=== PATIENT | female | born 1950 | race African-American/Black ===

== ENCOUNTER 2024-08-07 07:58 | Outpatient (AMB) | payer OTHER, SELFPAY ==
--- OUTSIDE RECORDS SUMMARY | 2024-08-07 08:01 | XMS_ITS | Patient Health Record ---
Author Organization [facility] Address [address] [facility] [place] [address] Care Team Providers Care Mixer And Scaler Name Role Phone Alondra MARES, [facility] Primary Care Provider Romina Min Unavailable [phone] Allergies Allergen (clinical drug ingredient) Drug/Non Drug Allergy documented on EMR Reaction Allergy Type Onset Date Status meperidine Demerol Unknown Drug Allergy Active Novocain Unknown Drug Allergy Active aspirin Aspirin Unknown Drug Allergy Active Latex Latex Unknown Allergy Active lidocaine Lidocaine Unknown Drug Allergy Active Penicillin Unknown Drug Allergy Active Reason For Referral No Information Medications Medication SIG (Take, Route, Frequency, Duration) Notes Start Date End Date Status Extra Depth Orthopedic Shoes (1 Pair) with Customized Heat Molded Multidensity Innersoles (3 Pair) as directed Dx: IDDM/Polyneuropathy (E10.42), Hammertoe Foot Deformity (M20.41,M20.42), Preulcerative Skin Lesion(s) (L85.1) Active Ciclopirox 0.77 % 1 application to aff ected area Externally Twice a day to effected nails for 30 days 05/14/2023 Active Lantus 100 UNIT/ML as directed Subcutaneous Active NovoLOG Active Zantac Active Immunizations Vaccine Route Administration Date Status Comme nts Influenza Unknown 12/07/2022 Administered Influenza Unknown 05/14/2023 Refused Social History Tobacco Use: Social History Observation Description Date Details (start date - stop date) Former Smoker NA - NA Tobacco Use/Smoking Question Answer Notes Are you a: former smoker Additional Findings: Tobacco Non-User Current no n-smoker Alcohol Screen Question Answer Notes Did you have a drink containing alcohol in the p ast year? No Points 0 Interpretation Negative Tobacco use other than smoking: Question Answer Notes Are you an other tobacco user? 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) Active confirmed Vital Signs Height 5ft 3in in 10/18/2023 Weight 170 lbs 10/18/2023 BMI 30.11 kg/m2 10/18/2023 Encounters [facility]counter [facility] Date [facility] [address] [facility]/18/[facility]23 Romina Connell Tinea unguium B35.1 and Type 1 DM with polyneuropathy E10.42 [facility] [address] [place] [address] 01/17/2024 Romina Connell Assessments Encounter Date Diagnosis (ICD Code) Assessment Notes Treatment Notes Treatment Clinical Notes Section Notes 10/18/2023 Tinea unguium (ICD-10 - B35.1) 10/18/2023 Type 1 DM with polyneuropathy (ICD-10 - E10.42) Plan Of Treatment No Information Insurance Providers Payer Name Payer Address Payer Phone Subscriber Number Group Number Insured Name Patient Relationship to Insured Coverage Start Date Coverage End Date [facility] [employer] Claims [address] [place] [address] [phone] [id number] Lisseth Chaudhari Self - patient is the insured Medical (General) History Medical History History ICD Code Angina Anxiety Arthritis asthma Back,Hip,and Knee pain Broken bones Mumps Diabetic Depression Headaches/Migraines Hiatal hernia nerve disorder Sinus conditions Stomach ulcer Surgical History Surgery Date(Month/Year) back surgery leg surgery,right Hospitalization History Reason Date(Month/Year)
--- NOTE | 2024-08-07 08:06 | MHC.PC.OV ---
Vital Signs 08/07/24 08:07 Height 5 ft 1.22 in Weight 165 lb 6 oz BMI 31.0 BP 120/70 Blood Pressure Location Rt brachial Position Sitting Pulse 90 Pulse Source Pulse Oximeter Temp 96.9 F Temp Source Temporal Artery Scan Pulse Oximetry (%) 97 Oxygen Delivery Method Room Air Intake Visit Reasons: establish care- copd/htn Intake Note: Patient is a new patient here to establish care for DM, Chronic pain, Dislocated disc in back and neck, Fibromilgia, Anxiety, Depression, Hearing loss, Bad eye vision. Transferring care from Dr Mio David ([facility]). Medical records have been requested and have not received. Semiconductor Processing Technician Required: No Concrete Journeyman: Not Required per policy Accompanied by: Self / Same As Patient Allergies adhesive tape Allergy (Intermediate, Verified 08/07/24 08:22) Hives amitriptyline Allergy (Intermediate, Verified 08/07/24 08:22) Hives codeine Allergy (Intermediate, Verified 08/07/24 08:22) Hives nortriptyline Allergy (Intermediate, Verified 08/07/24 08:22) Hives Medication List - Last Reconciled 08/07/24 by Annalisa Jackson PA-C [Adult pull ups As directed] aspirin 81 mg PO DAILY atenolol 150 mg PO DAILY blood-glucose sensor (Panda GraphicsStyle Lilian 3 Plus Sensor device) As directed blood-glucose,chief lock tender operator,cont (FreeStyle Lilian 3 [place]) As directed khcoefvnhei-cgsgondrt-rrbgwgxh 200-62.5-25 mcg (Trelegy Ellipta) 1 inh inhalation DAILY glucagon 3 mg/actuation (Baqsimi) mg intranasal hydrochlorothiazide 12.5 mg PO DAILY insulin glargine (Lantus Solostar U-100 Insulin) 32 units subcut QPM insulin lispro-aabc (Lyumjev KwikPen U-100 Insulin) 1 sliding scale dose subcut USEASDIRECTD levothyroxine 112 mcg PO DAILY lisinopril 10 mg PO DAILY nitroglycerin 0.4 mg sublingual Q5M PRN pravastatin 80 mg PO BEDTIME sertraline 100 mg PO DAILY tirzepatide (Mounjaro) 10 mg subcut QWEEK tizanidine 2 mg PO Q8H PRN Tobacco use date assessed: 08/07/24 Fall risk assessment: No Falls in past year Last assessed Fall Risk: 08/07/24 Dental Screening Dental Screen Date: 08/07/24 Did you have a dental visit in the last 12 months?: Yes Did you have a dental problem in the last 6 months where you did not have access to dental care?: No Was dental information given to patient?: Patient has dentist HPI establish care- copd/htn HPI Details 74-year-old female coming to the office for the 1st time. Patient was previously being seen in [facility] we do have access to some of her notes. She was seen by [facility] Cardiology 07/28/2024 advised to continue on atenolol, aspirin and nitroglycerin patch. Pravastatin was increased to 80 mg advised to continue on Mounjaro and ordered for Lexiscan nuclear stress test. She was last seen by her PCP 07/02/2024. She was seen by pulmonology 05/29/2024 advised to continue on CPAP and Trelegy. She is also seen by [facility] endocrinology 06/06/2024 A1c goal of less than 8% advised to continue on current medication and reviewed medication at the time. - Diabetes Mellitus: The patient has a history of diabetes with an A1c of 8.5, indicating poor glycemic control. She is currently on insulin therapy but is unsure of the specific medications. She reports difficulty in managing her diet and blood sugar levels, particularly after returning from a trip to [facility]. - Hypertension: The patient is on antihypertensive medication, including lisinopril, but specific details of her blood pressure control were not discussed. - Chronic Obstructive Pulmonary Disease (COPD): The patient has COPD and uses inhalers as needed. She reports experiencing dyspnea and is under the care of a embedded nurse, Dr. Polo. - Fibromyalgia: The patient reports significant pain associated with fibromyalgia, which exacerbates her depression and anxiety. She has been managing this condition for several years. Per last [facility] notes she is seeing a hand touch up painter the patient reports not seeing one. - Depression and Anxiety: The patient has a history of depression and anxiety, which are worsened by her chronic pain and social isolation. She expresses a desire to see a psychiatrist for medication management and counseling. - Hypothyroidism: The patient is on levothyroxine for hypothyroidism, and her thyroid function is monitored regularly. - Neuropathy: The patient experiences neuropathy associated with her diabetes, primarily affecting her lower extremities. - Back Pain: The patient has a history of back pain due to dislocated discs, with previous lumbar fusion surgeries that have not alleviated her symptoms. She reports ongoing lower back pain and is seeking pain management rather than surgical intervention. - Social History: The patient lives alone and has limited family support, with her family residing in [facility]. She engages in arts and crafts as a hobby and has a supportive relationship with her neighbors. PFSH Medical History (Updated 08/07/24 @ 15:54 by Annalisa Jackson PA-C) TIA (transient ischemic attack) Nephrolithiasis Surgical History (Updated 08/07/24 @ 12:58 by Annalisa Jackson PA-C) Hx laparoscopic cholecystectomy H/O tubal ligation H/O partial thyroidectomy H/O Spinal surgery Social History Housing: Apartment Alcohol intake: current Alcohol intake frequency: holidays/special occasions only Patient Tobacco Use Status: Former Tobacco user e-Cigarette/Vaping Use: Never Used Second Hand Smoke Exposure: Yes service: No Current occupational status: retired and disabled Cognitive needs: Yes (, scooter, walker) Hearing needs: No Vision needs: Yes (Glasses) Questionnaire PHQ-9 Over the last 2 weeks, how often have you been bothered by any of the following problems? 1. Little interest or pleasure in doing things: several days 2. Feeling down, depressed, or hopeless: several days 3. Trouble falling or staying asleep, or sleeping too much: several days 4. Feeling tired or having little energy: more than half the days 5. Poor appetite or overeating: several days 6. Feeling bad about yourself - or that you are a failure or have let yourself or your family down: several days 7. Trouble concentrating on things, such as reading the newspaper or watching television: several days 8. Moving or speaking so slowly that other people could have noticed. Or the opposite - being so fidgety or restless that you have been moving around a lot more than usual: several days 9. Thoughts that you would be better off or of hurting yourself in some way: not at all Total score: 9 Depression Screening Interpretation: Positive Depression Screening Follow-up: Existing condition and In treatment Depression Screening Done: Yes 16206 - PHQ-9 Billing: Yes Source: Developed by Drs. Umang Silva, Elizabeth Mar, Ronak Lindsey and colleagues, with an educational malia from [employer]. Thrive Questionnaire Date Thrive assessed: 08/07/24 I am a: Patient What is your living situation today?: I have a steady place to live Within the past 12 months, did the food you bought not last and you didn't have the money to get more?: Never true Within the past 12 months, did you worry whether your food would run out before you got money to buy more?: Never true Do you have trouble paying for medicines?: No Do you have trouble getting transportation to medical appointments?: No Do you have trouble paying your heating and electricity bill?: No Do you have trouble taking care of your child, family member or friend?: Yes Do you have trouble with day-to-day activities such as bathing, preparing meals, shopping, managing finances, etc.?: Yes Are you currently unemployed and looking for a job?: Yes Are you interested in more education?: No Please select the resources that you would like help with: None Currently or been in a relationship where the following occur: No concerns reported THRIVE Score: 0 AUDIT C Alcohol Use Questionnaire (AUDIT-C) 1. How often do you have a drink containing alcohol?: Monthly or less 2. How many drinks containing alcohol do you have on a typical day when you are drinking?: 1 or 2 3. How often do you have six or more drinks on one occasion?: Less than monthly Total Score: 2 ALVERTO-7 AMB Questionnaire ALVERTO-7 Date ALVERTO - 7 assessed: 08/07/24 Feeling nervous, anxious, or on edge: 2 = More than half the days Not being able to stop or control worryin = More than half the days Worrying too much about different things: 2 = More than half the days Trouble relaxin = Not at all Being so restless that it is hard to sit still: 2 = More than half the days Becoming easily annoyed or irritable: 2 = More than half the days Feeling afraid as if something awful might happen: 2 = More than half the days Total ALVERTO-7 score (0-4 normal; 5-9 mild; 10-14 moderate; 15-21 severe): 12 Source: Developed by Drs. Umang Silva, Elizabeth Mar, Ronak Lindsey and colleagues, with an educational malia from [employer]. ALVERTO-7 Assessment Billing ALVERTO-7 Assessment Tool: ALVERTO-7 Assessment 71157 Review of Systems Const Denies body aches, Denies chills, Denies fever(s), Denies headache(s) and Denies poor appetite Eyes Reports no additional complaints ENT Denies dizziness and Denies headache(s) Card Denies chest pain and Denies dyspnea Resp Denies cough and Denies dyspnea GI Denies abdominal pain, Denies nausea and Denies vomiting Reports no additional complaints Musc Reports no additional complaints and Denies abnormal gait Skin/Breast Reports system reviewed and no additional complaints, except as documented Neuro Denies abnormal gait, Denies dizziness and Denies headache(s) Psych Reports no additional complaints Physical exam (Primary Care) Vital Signs: Last Vital Signs Temp 96.9 F 08/07/24 08:07 Pulse 90 08/07/24 08:07 BP 120/70 08/07/24 08:07 Pulse Ox 97 08/07/24 08:07 Oxygen Delivery Method Room Air 08/07/24 08:07 BMI result Body Mass Index 31.0 Tobacco/Smoking Status: Tobacco use Status Tobacco use date assessed 08/07/24 08/07/24 08:11 Patient Tobacco Use Status Former Tobacco user 08/07/24 08:25 e-Cigarette/Vaping Use Never Used 08/07/24 08:24 PHQ-9: PHQ-9 Score PHQ-9: Total score 9 08/07/24 14:57 Depression Screening Interpretation: Positive Depression Screening Follow-up: Existing condition and In treatment Thrive Assessment: Date of Thrive Assessment Date Thrive assessed 08/07/24 08/07/24 08:11 Currently or been in a relationship where the following occur: No concerns reported Const General: cooperative, healthy appearing, comfortable and no acute distress Orientation/consciousness: patient oriented x3 HENMT Head: Yes normocephalic Ears: hearing grossly normal bilaterally General nose exam: Normal external nose present Eyes General: appearance normal, both eyes and all related structures Conjunctivae: conjunctivae normal Neck Neck: Yes full ROM and Yes no lymphadenopathy Resp Effort & Inspection: normal respiratory effort Auscultation: clear to auscultation bilaterally, no crackles, no rales, no rhonchi and no wheezes Cardio Rate: regular rate Rhythm: regular rhythm Skin General skin exam: no rashes or lesions noted Neuro General: patient oriented x3 Gait exam (Neuro): Normal gait present Extrem General: Yes normal to inspection, Yes full ROM and No edema Psych Affect: normal affect Attitude: cooperative Insight: Good insight present (Psych) Judgement: Good judgement present (Psych) Results AMB Hemoglobin A1c AMB Hemoglobin A1c 8.5 % Last Edit by SONIA Hi on 08/07/24 08:41 Results Reviewed Results Reviewed: Laboratory Last Values Hgb A1c (Clinic) 8.5 % (4.0-6.0) H 08/07/24 08:28 Coding Level of Care Code New Pt Level 4 (05996) Diagnoses Insulin dependent type 2 diabetes mellitus E11.9; Z79.4 Hypertension I10 COPD (chronic obstructive pulmonary disease) J44.9 Anxiety F41.9 Depression F32.A Fibromyalgia M79.7 Hypothyroidism E03.9 Memory impairment R41.3 Neuropathy G62.9 Back pain M54.9 Hypercholesterolemia E78.00 CAD (coronary artery disease) I25.10 Obesity E66.9 Obstructive sleep apnea G47.33 Urinary incontinence R32 Additional Codes ALVERTO-7 Assessment Billing - ALVERTO-7 Assessment Tool: ALVERTO-7 Assessment 04805 ([id number]) PHQ-9 - 16093 - PHQ-9 Billing: Yes ([id number]) Assessment & Plan Assessment & Plan (1) Insulin dependent type 2 diabetes mellitus: Code(s): E11.9 - Type 2 diabetes mellitus without complications; Z79.4 - long term care social worker (current) use of insulin Category: Medical Plan: Decrease the amount of carbohydrates such as pasta, bread, rice, and potatoes and limit the amount of sweets. Although fruits are generally healthy they should be eaten in moderation as they are still high in sugar. Hemoglobin A1c goal of 8%. Continue to follow with [facility] endocrinology. (2) Hypertension: Code(s): I10 - Essential (primary) hypertension Category: Medical Plan: Continue on current blood pressure medication. Avoid salt intake and encourage healthy diet and regular exercise. Reviewed Cardiology notes advised patient to continue on current medication regimen (3) COPD (chronic obstructive pulmonary disease): Code(s): J44.9 - Chronic obstructive pulmonary disease, unspecified Category: Medical Plan: She is unsure about her inhalers but feels her breathing is well managed at this time. Continue to follow with pulmonology. (4) Anxiety: Code(s): F41.9 - Anxiety disorder, unspecified Category: Medical Plan: Anxiety and depression well managed on sertraline at this time. She is looking for a counseling referral as she does do with chronic pain which impacts her mental health. Referral was placed today. (5) Depression: Code(s): F32.A - Depression, unspecified Category: Medical Plan: See above (6) Fibromyalgia: Code(s): M79.7 - Fibromyalgia Category: Medical Plan: Patient reporting fibromyalgia and chronic pain she states she does not see a hand touch up painter. Her last PCP notes did show that she is seeing [facility] pain management however notes were unobtainable today. Referral was placed to [place] pain management today. (7) Hypothyroidism: Code(s): E03.9 - Hypothyroidism, unspecified Category: Medical Plan: Continue on levothyroxine 112 mcg and ordered for repeat blood work (8) Memory impairment: Code(s): R41.3 - Other amnesia Category: Medical Plan: Patient having memory impairment which was noted by her last PCP as well as her facility assistant. Referral was placed to neurology today for further evaluation. (9) Neuropathy: Code(s): G62.9 - Polyneuropathy, unspecified Category: Medical Plan: Patient has a history of neuropathy does not appear to be on any medication to treat this. Referral was placed to neurology for memory impairment and plan to address neuropathy at that time. 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 (11) Hypercholesterolemia: Code(s): E78.00 - Pure hypercholesterolemia, unspecified Category: Medical Plan: Avoid foods that are high in cholesterol such as red meat, fried foods, eggs and baked goods. Triglyceride goal of less than 150 and LDL goal of less than 70. Continue on pravastatin 80 (12) CAD (coronary artery disease): Comment: PREMA to circumflex and has 50% lad 2012 Code(s): I25.10 - Atherosclerotic heart disease of [place] coronary artery without angina pectoris Category: Medical Plan: Patient is currently following with calender worker helper last seen 07/02/2024 and plan to follow up in their clinic in 3 months. Advised good control of blood sugars, A1c currently on controlled at this time 8.7% and is following with endocrinology for this. Advised good control of cholesterol which is 91 on last labs slightly above goal however recent change in pravastatin may not have been in full affect. Blood pressure is well managed at this time. Continue on low-dose aspirin and nitroglycerin as needed (13) Obesity: Code(s): E66.9 - Obesity, unspecified Category: Medical Plan: Healthy diet and regular exercise is encouraged. (14) Obstructive sleep apnea: Code(s): G47.33 - Obstructive sleep apnea (adult) (pediatric) Category: Medical Plan: Uses CPAP faithfully at least 4 hours a night and benefits from this therapy. Continue to follow up with pulmonology. (15) Urinary incontinence: Code(s): R32 - Unspecified urinary incontinence Category: Medical Plan: Patient has reported urinary incontinence which is a chronic issue and uses adult pull-ups for this. Prescription was sent to pharmacy. Plan Community navigation was contacted today and patient did have an evaluation with nurse navigator Twna prior to leaving the office. She will work with community navigation on additional resources and coordinate with [facility] as well. The patient will be referred to a psychiatrist for management of depression and anxiety, with a focus on medication management and counseling. A referral to a hand touch up painter will be made to address her chronic back pain, particularly due to dislocated discs and fibromyalgia. 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 Blood work has been ordered, including a cholesterol panel and thyroid function tests, to monitor her overall health status. The patient is advised to provide a complete list of her current medications to ensure proper management of her diabetes and other chronic conditions. She is encouraged to maintain regular follow-ups with her primary care provider to monitor her progress and adjust treatment plans as necessary. This note was constructed using voice recognition software. While every effort has been made to ensure accuracy and computer repairer, still areas may have been included sometimes these areas may affect the content or meeting of the given symptoms. Total time spent caring for the patient today was 30 minutes. This includes time spent before the visit reviewing the chart, time spent during the visit, and time spent after the visit and documentation. Patient was informed and verbally consented to the use of an ambient scribe for clinic note documentation during this visit. Orders: Orders AMB Hemoglobin A1c Today E11.9 - Type 2 diabetes mellitus without complications Vitamin D 25-OH Total Today E11.9 - Type 2 diabetes mellitus without complications, Z00.00 - Encounter for general adult medical examination without abnormal findings, Z79.4 - long term care social worker (current) use of insulin Free T4 (Free Thyroxine) Today E11.9 - Type 2 diabetes mellitus without complications, Z00.00 - Encounter for general adult medical examination without abnormal findings, Z79.4 - long term care social worker (current) use of insulin Vitamin B12 and Folate Today E11.9 - Type 2 diabetes mellitus without complications, Z13.21 - Encounter for screening for nutritional disorder, Z79.4 - [facility] (current) use of insulin TSH reflex Free T4 Today E11.9 - Type 2 diabetes mellitus without complications, Z00.00 - Encounter for general adult medical examination without abnormal findings, Z79.4 - long term care social worker (current) use of insulin Referrals Neurology Referral G62.9 - Polyneuropathy, unspecified, R41.3 - Other amnesia Pain Management Referral G62.9 - Polyneuropathy, unspecified, M54.9 - Dorsalgia, unspecified, M79.7 - Fibromyalgia Psychiatry Referral F32.A - Depression, unspecified, F41.9 - Anxiety disorder, unspecified Nurse Navigator Referral E11.9 - Type 2 diabetes mellitus without complications, Z79.4 - long term care social worker (current) use of insulin Medications: New blood-glucose sensor (FreeStyle Lilian 3 Plus Sensor device) As directed 1 ea 0RF E11.9 - Type 2 diabetes mellitus without complications, Z79.4 - [facility] (current) use of insulin blood-glucose,chief lock tender operator,cont (FreeStyle Lilian 3 [place]) As directed 1 ea 0RF E11.9 - Type 2 diabetes mellitus without complications, Z79.4 - long term care social worker (current) use of insulin [Adult pull ups] As directed 1 ea 0RF R32 - Unspecified urinary incontinence
[2024-08-07 08:07] VITALS: BP 120/70; PULSE 90; TEMP 36.1; O2SAT 97; BMI 31.0
== END 2024-08-07 09:27 | disposition home or self-care (01) ==
LOC: HO.HMCH 07:58
PROVIDERS: PCP Internal Medicine
DX: E11.42 Type 2 diabetes mellitus with diabetic polyneuropathy (principal); Z79.4 Long term (current) use of insulin; J44.9 Chronic obstructive pulmonary disease, unspecified; I10 Essential (primary) hypertension; F41.9 Anxiety disorder, unspecified; F32.A Depression, unspecified; M79.7 Fibromyalgia; E03.9 Hypothyroidism, unspecified; R41.3 Other amnesia; G62.9 Polyneuropathy, unspecified; M54.9 Dorsalgia, unspecified; E78.00 Pure hypercholesterolemia, unspecified

== ENCOUNTER → 2024-08-07 07:58 | Outpatient (BNVA) | payer OTHER, SELFPAY | PROVIDERS: PCP Internal Medicine | DX: E11.9 Type 2 diabetes mellitus without complications (principal); G89.29 Other chronic pain; M79.7 Fibromyalgia; F41.9 Anxiety disorder, unspecified; F32.A Depression, unspecified; I10 Essential (primary) hypertension; J44.9 Chronic obstructive pulmonary disease, unspecified; F32.9 Major depressive disorder, single episode, unspecified; E03.9 Hypothyroidism, unspecified; R41.3 Other amnesia; G62.9 Polyneuropathy, unspecified; M54.9 Dorsalgia, unspecified; E78.00 Pure hypercholesterolemia, unspecified; I25.10 Atherosclerotic heart disease of native coronary artery without angina pectoris; E66.9 Obesity, unspecified; G47.33 Obstructive sleep apnea (adult) (pediatric); R32 Unspecified urinary incontinence; Z68.31 Body mass index [BMI] 31.0-31.9, adult | CPT/HCPCS: 83036; 96127; 99202 ==

== ENCOUNTER 2024-08-14 10:19 | Outpatient (AMB) | payer OTHER, SELFPAY ==
[2024-08-14 10:20] VITALS: BP 152/70; PULSE 94; RESP 16; O2SAT 98; BMI 33.4
--- NOTE | 2024-08-14 10:20 | A.OFFVIS_ITS ---
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 She has a history of fibromyalgia, which causes widespread pain and flare-ups, currently exacerbated by issues in her lower back. The chronic lower back pain is primarily located at the L4-L5 region, radiating down the right leg to the foot, causing significant discomfort and limited mobility. The pain has persisted for years, with a history of spinal fusion surgery followed by hardware removal. The patient reports that steroid injections previously used for pain management elevated her blood sugar levels, complicating her diabetes management. She has tried various medications, including gabapentin, which was ineffective and caused adverse effects such as brain fog. Patient ambulates with use of a cane, has a scooter for long distances. Denies red flag symptoms including loss of bowel, bladder or saddle anesthesia. Her diabetes mellitus requires careful management, especially considering her reluctance to use certain pain management devices due to infection risks. Most recent A1c was 8.5%. - Onset: Chronic, persisting for years - Quality: Radiating pain from lower back to right leg and foot - Location: Primarily at L4-L5, radiating down the right side - Exacerbating factors: Movement, sitting, standing, walking - Relieving factors: None effectively identified - Affect: Pain is causing significant distress and impacting psychological wellbeing - Analgesia: Previous use of gabapentin was ineffective; steroid injections increased blood sugar - Adverse Effects: Gabapentin caused brain fog; steroid injections affected diabetes management - Activities of Daily Living: Pain limits mobility and daily activities - Aberrant Drug Related Behaviors: None reported [facility] Medical History (Updated 08/14/24 @ 12:50 by Linda Sanchez, VARITYPIST, LAYOUT ARTIST) TIA (transient ischemic attack) Nephrolithiasis Surgical History (Updated 08/07/24 @ 12:58 by Annalisa Jackson PA-C) Hx laparoscopic cholecystectomy H/O tubal ligation H/O partial thyroidectomy H/O Spinal surgery Social History Housing: Apartment Alcohol intake: current Alcohol intake frequency: holidays/special occasions only Patient Tobacco Use Status: Former Tobacco user e-Cigarette/Vaping Use: Never Used Second Hand Smoke Exposure: Yes service: No Current occupational status: retired and disabled Cognitive needs: Yes (, scooter, walker) Hearing needs: No Vision needs: Yes (Glasses) Review of Systems Const Details: - Musculoskeletal: Reports chronic lower back pain radiating to the right leg - Neurological: Reports radicular pain down the right leg - Endocrine: Reports elevated blood sugar levels with steroid use Physical Exam Vital Signs: Last Vital Signs Pulse 94 08/14/24 10:20 Resp 16 08/14/24 10:20 BP 152/70 H 08/14/24 10:20 Pulse Ox 98 08/14/24 10:20 Oxygen Delivery Method Room Air 08/14/24 10:20 BMI result Body Mass Index 33.4 General: awake, alert, oriented. Answers questions appropriately. Fully engaged in examination. Skin: warm, dry, intact HEENT: Normocephalic. Hearing intact. Cardiac: External chest normal in appearance. Respiratory: No cough, audible wheezing or stridor. Abdomen: without gross distension. MS: No obvious swelling or deformities. Able to transition from sit to stand unassisted. Ambulates with bilaterally normal heel strike and toe off Tenderness over midline lumbar vertebrae and lumbar paraspinal muscles SLR positive on the right Bilateral lower extremity strength 4/5 Valsalva negative Nontender over bilateral PSIS Neurological: Oriented to person, place, time and situation. Thought process intact. No gait abnormalities appreciated. Psychiatric: Appropriate mood and affect. Good judgment and insight. 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 X-rays will also be ordered to evaluate the alignment and integrity of the spinal column, particularly during movement. Patient has exhausted greater than 6 weeks conservative therapy including ice, heat, lidocaine patches, NSAIDs, Tylenol. Unable to tolerate physical therapy, she states it exacerbates the pain. The patient will be scheduled for an open MRI to accommodate her discomfort with enclosed spaces. The x-rays can be done at a convenient location for the patient, with no appointment necessary. Patient was informed and verbally consented to the use of an ambient scribe for clinic note documentation during this visit. Orders: Orders XR lumbar spine 6V w bending Today M79.7 - Fibromyalgia, M96.1 - Postlaminectomy syndrome, not elsewhere classified MR lumbar spine wo con Today M54.16 - Radiculopathy, lumbar region, M96.1 - Postlaminectomy syndrome, not elsewhere classified Patient Instructions: - Schedule an open MRI at [facility]. - Complete x-rays at your convenience. - Follow up after the MRI to discuss results and next steps. Coding Level of Care Code New Pt Level 4 (17779) Complex EM visit Add On G2211 Diagnoses Fibromyalgia M79.7 Failed back surgical syndrome M96.1 Lumbar radiculopathy M54.16
--- OUTSIDE RECORDS SUMMARY | 2024-08-14 11:41 | XMS_ITS | Patient Health Record ---
Author Organization [facility] Address [address] [address] Care Team Providers Care Wage Conciliator Name Role Phone Alondra MARES, [facility] Primary Care Provider Romina Min Unavailable [phone] Allergies Allergen (clinical drug ingredient) Drug/Non Drug [...] Problem Acquired hammer toe of right foot ([id number] 9105) Other hammer toe(s) (acquired), right foot (M20.41) Active confirmed Problem Acquired hammer toe of left foot ([id number] 9103) Other hammer toe(s) (acquired), left foot (M20.42) Active confirmed Problem [id number] 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 [address] [place] [address] 01/17/2024 Romina Connell Assessments Encounter Date Diagnosis (ICD Code) Assessment Notes Treatment Notes Treatment Clinical Notes Section Notes 10/18/2023 Tinea unguium (ICD-10 - B35.1) 10/18/2023 Type 1 DM with polyneuropathy (ICD-10 - E10.42) Plan Of Treatment No Information Insurance Providers Payer Name Payer Address Payer Phone Subscriber Number Group Number Insured Name Patient Relationship to Insured Coverage Start Date Coverage End Date [facility] SCO Claims [address] [place] [address] [phone] [id number] Lisseth Chaudhari Self - patient is the insured Medical (General) History Medical History History ICD Code Angina Anxiety Arthritis asthma Back,Hip,and Knee pain Broken bones Mumps Diabetic Depression Headaches/Migraines Hiatal hernia nerve disorder Sinus conditions Stomach ulcer Surgical History Surgery Date(Month/Year) back surgery leg surgery,right Hospitalization History Reason Date(Month/Year)
== END 2024-08-14 11:16 | disposition home or self-care (01) ==
LOC: HO.PMC 10:20
PROVIDERS: Visit Provider Registered Nurse Emergency
DX: M79.7 Fibromyalgia (principal); M96.1 Postlaminectomy syndrome, not elsewhere classified; M54.16 Radiculopathy, lumbar region
CPT/HCPCS: 99204; G2211

== ENCOUNTER → 2024-08-14 10:19 | Outpatient (BNVA) | payer OTHER, SELFPAY | PROVIDERS: Visit Provider Registered Nurse Emergency | DX: M79.7 Fibromyalgia (principal); M96.1 Postlaminectomy syndrome, not elsewhere classified; M54.16 Radiculopathy, lumbar region | CPT/HCPCS: 99202 ==

== ENCOUNTER 2024-08-20 09:07 | Outpatient (REF) | payer OTHER, SELFPAY ==
--- NOTE | ~2024-08-20 | XR_ITS ---
CLINICAL HISTORY: M96.1 - Postlaminectomy syndrome, not elsewhere classified Lumbar spine three views plus flexion-extension Comparison: None provided Findings: No acute fracture or dislocation. Diffuse severe degenerative change. Multilevel slight anterolisthesis, likely chronic. No change in alignment with flexion or extension. Very limited range of motion observed. No radiopaque foreign bodies. Impression: No acute processes This document has been electronically signed by: Lopez Looney MD on 08/20/2024 19:49:06
[2024-08-20 11:38] LABS: Free T4 (Free Thyroxine) 1.02 ng/dL (0.71-1.85); TSH reflex Free T4 2.84 uIU/mL (0.32-4.0); Vitamin D 25-OH Total 38.7 ng/mL (>30)
[2024-08-20 11:47] LABS: Folate 12.4 ng/mL (> or = 4.0); Vitamin B12 720 pg/mL (200-900)
--- OUTSIDE RECORDS SUMMARY | 2024-10-14 20:00 | XMS_ITS | Clinical Summary ---
Author Organization Unknown Care Team Providers Care Ethyl Blender Name Role Phone ANNALISA MARES, MAY Unavailable Unavailable SWEETIE EASTON, PETERSON Marquez Unavailabl e Payers Payer Name Policy Type Policy Number Effective Date Expira tion Date [facility] [id number] MEDICAID [facility] [id number] MEDICARE - [facility] [id number] Problems Condition Name Condition Details Condition Category Status Onset Date Resolution Date Last Treatment Date Treating Clinician Comments TYPE 2 DIABETES MELLITUS WITHOUT COMPLICATION S Active 08-14 00:00: 00 Allergies, Adverse Reactions, Alerts Allergy Name Allergy Type Status Severity Reaction(s) Onset Date Inactive Date Treating Clinician Comments CODEINE SULFATES Propensity to adverse reactions Active 08-17 09:25: 01 AMITRIPTYLIN E Propensity to adverse reactions Active 08-18 07:09: 54 Vital Signs Vital Name Observation Time Observation Value Commen ts Temperature 2024-08-17 09:42:00.000 98.6 [degF] BMI (%) 2024-08-17 09:42:00.000 26 kg/m2 Height 2024-08-17 09:42:00.000 63 [in_us] Pulse 2024-08-17 09:42:00.000 60 /min O2 Saturation (%) 2024-08-17 09:42:00.000 99 % Respirations 2024-08-17 09:42:00.000 18 /min Weight (lbs) 2024-08-17 09:42:00.000 150 [lb_av] Systolic Blood Pressure 2024-08-17 09:42:00.000 140 mm [Hg] Diastolic Blood Pressure 2024-08-17 09:42:00.000 70 mm [Hg] Plan of Treatment Planned Activity Planned Date Details Comments Future Scheduled Test SKILLED NU RSE TO EVALUATE PATIENT, IDENTIFY PRIMARY AND CO-MORBID CONDITIONS CODED PER CODING GUIDELINES, AND DEVELOP PATIENT SPECIFIC PLAN OF CARE THAT INCLUDES PATIENT GOAL FOR HOME HEALTH. [code = SKILLED NURSE TO EVALUATE PATIENT, IDENTIFY PRIMARY AND CO-MORBID CONDITIONS CODED PER CODING GUIDELINES, AND DEVELOP PATIENT SPECIFIC PLAN OF CARE THAT INCLUDES PATIENT GOAL FOR HOME HEALTH.] Future Scheduled Test SKILLED NU RSE TO PERFORM HOME SAFETY AND FALL ASSESSMENT AND PROVIDE INSTRUCTION TO IMPLEMENT HOME SAFETY AND FALL PREVENTION STRATEGIES. [code = SKILLED NURSE TO PERFORM HOME SAFETY AND FALL ASSESSMENT AND PROVIDE INSTRUCTION TO IMPLEMENT HOME SAFETY AND FALL PREVENTION STRATEGIES.] Future Scheduled Test SKILLED NU RSE FOR OBSERVATION AND ASSESSMENT OF PATIENTS PAIN LEVEL AND EFFECTIVENESS OF PAIN MANAGEMENT REGIMEN. SKILLED NURSE TO INSTRUCT PATIENT/CAREGIVER REGARDING PHARMACOLOGIC AND NON-PHARMACOLOGIC PAIN CONTROL MEASURES. SKILLED NURSE TO REPORT TO PHYSICIAN IF PAIN IS UNCONTROLLED WITH CURRENT PAIN MANAGEMENT REGIMEN. [code = SKILLED NURSE FOR OBSERVATION AND ASSESSMENT OF PATIENTS PAIN LEVEL AND EFFECTIVENESS OF PAIN MANAGEMENT REGIMEN. SKILLED NURSE TO INSTRUCT PATIENT/CAREGIVER REGARDING PHARMACOLOGIC AND NON-PHARMACOLOGIC PAIN CONTROL MEASURES. SKILLED NURSE TO REPORT TO PHYSICIAN IF PAIN IS UNCONTROLLED WITH CURRENT PAIN MANAGEMENT REGIMEN.] Future Scheduled Test SKILLED NU RSE TO ASSESS PATIENT'S SKIN INTEGRITY AND INSTRUCT PATIENT/CAREGIVER ON MEASURES TO PREVENT PRESSURE ULCERS. [code = SKILLED NURSE TO ASSESS PATIENT'S SKIN INTEGRITY AND INSTRUCT PATIENT/CAREGIVER ON MEASURES TO PREVENT PRESSURE ULCERS.] Future Scheduled Test PATIENT REYES S A RISK OF HOSPITALIZATION AND ED USE. SKILLED NURSE TO ESTABLISH SUPPORT MEASURES TO MINIMIZE RISK OF HOSPITALIZATION AND ED USE, AND INSTRUCT PATIENT/CAREGIVER ON METHODS TO REDUCE AVOIDABLE HOSPITALIZATION AND ED USE. [code = PATIENT HAS A RISK OF HOSPITALIZATION AND ED USE. SKILLED NURSE TO ESTABLISH SUPPORT MEASURES TO MINIMIZE RISK OF HOSPITALIZATION AND ED USE, AND INSTRUCT PATIENT/CAREGIVER ON METHODS TO REDUCE AVOIDABLE HOSPITALIZATION AND ED USE.] Future Scheduled Test SKILLED NU RSE TO PROVIDE INSTRUCTION TO PATIENT/CAREGIVER RELATED TO DISCHARGE PLANNING. [code = SKILLED NURSE TO PROVIDE INSTRUCTION TO PATIENT/CAREGIVER RELATED TO DISCHARGE PLANNING.] Future Scheduled Test SKILLED NU RSE TO O/A OF PATIENTS MENTAL/BEHAVIORAL STATUS, ASSESS VITAL SIGNS 3WK8 ALLOW 2 PRNS FOR MEDICATION MANAGEMENT. [code = SKILLED NURSE TO O/A OF PATIENTS MENTAL/BEHAVIORAL STATUS, ASSESS VITAL SIGNS 3WK8 ALLOW 2 PRNS FOR MEDICATION MANAGEMENT.] Future Scheduled Test SKILLED NU RSE WILL MAINTAIN SITUATIONAL AWARENESS FOR SAFETY AND WILL NOTIFY CLINICAL CHILD AND ADOLESCENT PSYCHOLOGIST AND PHYSICIAN/PROVIDER WITH ANY CHANGE IN CONDITION. [code = SKILLED NURSE WILL MAINTAIN SITUATIONAL AWARENESS FOR SAFETY AND WILL NOTIFY CLINICAL CHILD AND ADOLESCENT PSYCHOLOGIST AND PHYSICIAN/PROVIDER WITH ANY CHANGE IN CONDITION.] Future Scheduled Test SKILLED NU RSE TO REVIEW PATIENT MEDICATIONS. INSTRUCT PATIENT/CAREGIVER ON MONITORING OF EFFECTIVENESS, ADVERSE DRUG REACTIONS, SIDE EFFECTS OF ALL MEDICATIONS (PRESCRIPTION/-OTC), AND HOW AND WHEN TO REPORT PROBLEMS. [code = SKILLED NURSE TO REVIEW PATIENT MEDICATIONS. INSTRUCT PATIENT/CAREGIVER ON MONITORING OF EFFECTIVENESS, ADVERSE DRUG REACTIONS, SIDE EFFECTS OF ALL MEDICATIONS (PRESCRIPTION/-OTC), AND HOW AND WHEN TO REPORT PROBLEMS.] Future Scheduled Test SKILLED NU RSE FOR O/A AND SKILLED TEACHING RELATED TO MANAGEMENT OF DEPRESSIVE SYMPTOMS AND/OR DEPRESSION. SN TO REPORT SIGNIFICANT CHANGE IN DEPRESSIVE SYMPTOMS TO CLINICAL PROVIDER FOR EARLY INTERVENTION. [code = SKILLED NURSE FOR O/A AND SKILLED TEACHING RELATED TO MANAGEMENT OF DEPRESSIVE SYMPTOMS AND/OR DEPRESSION. SN TO REPORT SIGNIFICANT CHANGE IN DEPRESSIVE SYMPTOMS TO CLINICAL PROVIDER FOR EARLY INTERVENTION.] Future Scheduled Test SKILLED NU RSE FOR O/A AND SKILLED TEACHING OF COPING SKILLS TO MANAGE ANXIETY AND MAINTAIN SAFETY. [code = SKILLED NURSE FOR O/A AND SKILLED TEACHING OF COPING SKILLS TO MANAGE ANXIETY AND MAINTAIN SAFETY.] Future Scheduled Test SKILLED NU RSE TO ASSESS PATIENTS PSYCHOSOCIAL STATUS TO IDENTIFY POTENTIAL ISSUES THAT MAY COMPLICATE THE PROVISION OF THE PLAN OF CARE INCLUDING THE PATIENTS ABILITY TO ACCESS COMMUNITY RESOURCES AND PSYCHOSOCIAL SUPPORT SERVICES. [code = SKILLED NURSE TO ASSESS PATIENTS PSYCHOSOCIAL STATUS TO IDENTIFY POTENTIAL ISSUES THAT MAY COMPLICATE THE PROVISION OF THE PLAN OF CARE INCLUDING THE PATIENTS ABILITY TO ACCESS COMMUNITY RESOURCES AND PSYCHOSOCIAL SUPPORT SERVICES.] Future Scheduled Test SKILLED NU RSE FOR O/A OF RESPIRATORY SYSTEM TO IDENTIFY CHANGES ASSOCIATED WITH EXACERBATION AND TO PROVIDE SKILLED TEACHING ON MANAGEMENT OF COPD(SPECIFY) RESPIRATORY DISEASE PROCESS. [code = SKILLED NURSE FOR O/A OF RESPIRATORY SYSTEM TO IDENTIFY CHANGES ASSOCIATED WITH EXACERBATION AND TO PROVIDE SKILLED TEACHING ON MANAGEMENT OF COPD(SPECIFY) RESPIRATORY DISEASE PROCESS.] Future Scheduled Test SKILLED NU RSE TO PROVIDE TEACHING ON SIGNS AND SYMPTOMS AND MANAGEMENT OF HYPERTENSION. [code = SKILLED NURSE TO PROVIDE TEACHING ON SIGNS AND SYMPTOMS AND MANAGEMENT OF HYPERTENSION.] Future Scheduled Test SKILLED NU RSE TO PROVIDE TEACHING/REINFORCEMENT RELATED TO URINARY INCONTINENCE. [code = SKILLED NURSE TO PROVIDE TEACHING/REINFORCEMENT RELATED TO URINARY INCONTINENCE.] Future Scheduled Test SKILLED NU RSE FOR O/A AND TEACHING OF DIABETIC MANAGEMENT INCLUDING BLOOD SUGAR MONITORING/USE OF GLUCOMETER, DIABETIC DIET, LOWER EXTREMITY SKIN INSPECTION, PROPER SKIN/FOOT CARE, AND SIGNS AND SYMPTOMS HYPO/HYPERGLYCEMIA TO REPORT. [code = SKILLED NURSE FOR O/A AND TEACHING OF DIABETIC MANAGEMENT INCLUDING BLOOD SUGAR MONITORING/USE OF GLUCOMETER, DIABETIC DIET, LOWER EXTREMITY SKIN INSPECTION, PROPER SKIN/FOOT CARE, AND SIGNS AND SYMPTOMS HYPO/HYPERGLYCEMIA TO REPORT.] Future Scheduled Test SKILLED NU RSE FOR O/A AND SKILLED TEACHING RELATED TO SIGNS AND SYMPTOMS AND MANAGEMENT OF FIBROMYALGIA (SPECIFY MUSCULOSKELETAL DISEASE) [code = SKILLED NURSE FOR O/A AND SKILLED TEACHING RELATED TO SIGNS AND SYMPTOMS AND MANAGEMENT OF FIBROMYALGIA (SPECIFY MUSCULOSKELETAL DISEASE)] Goal Patient Goal - P ATIENT VERBALIZED GOAL TO IMPROVED MEDICATION MANAGEMENT AND PAIN IN LOWER BACK. Goal Provider Goal - A PLAN OF CARE WILL BE ESTABLISHED THAT MEETS PATIENT'S [facility] NEEDS AND INCLUDES PATIENT GOAL FOR HOME HEALTH. Goal Provider Goal - PATIENT/CAREGIVER WILL VERBALIZE/DEMONSTRATE EFFECTIVE HOME SAFETY AND FALL PREVENTION STRATEGIES THROUGHOUT CERTIFICATION PERIOD. Goal Provider Goal - PATIENT/CAREGIVER WILL DEMONSTRATE UNDERSTANDING OF PHARMACOLOGIC AND NONPHARMACOLOGIC PAIN CONTROL MEASURES AND PATIENT WILL HAVE IMPROVEMENT IN PAIN INTERFERING WITH ACTIVITY EVIDENCED BY PAIN AT A LEVEL THAT IS ACCEPTABLE TO THE PATIENT AND PAIN LEVEL WITHIN ESTABLISHED PARAMETERS BY END OF CERTIFICATION PERIOD. Goal Provider Goal - PATIENT/CAREGIVER WILL VERBALIZE UNDERSTANDING OF PRESSURE ULCER PREVENTION BY END OF THE EPISODE. Goal Provider Goal - PATIENT WILL HAVE SUPPORT MEASURES ESTABLISHED TO PREVENT HOSPITALIZATION AND ED USE AND PATIENT/CAREGIVER WILL VERBALIZE/DEMONSTRATE METHODS TO REDUCE AVOIDABLE HOSPITALIZATION AND ED USE BY END OF EPISODE. Goal Provider Goal - PATIENT/CAREGIVER WILL VERBALIZE UNDERSTANDING OF DISCHARGE PLANNING INSTRUCTIONS BY DATE OF DISCHARGE. Goal Provider Goal - ALTERED MENTAL/BEHAVIORAL STATUS WILL BE IDENTIFIED PROMPTLY AND INTERVENTION INITIATED QUICKLY TO MINIMIZE ASSOCIATED RISKS THROUGHOUT CERTIFICATION PERIOD. Goal Provider Goal - PATIENT WILL REMAIN SAFE IN THE COMMUNITY AND WILL BE FREE OF DANGER TO SELF AND OTHERS THROUGHOUT THE CERTIFICATION PERIOD. Goal Provider Goal - PATIENT/CAREGIVER WILL VERBALIZE UNDERSTANDING OF EDUCATION PROVIDED ON MEDICATIONS BY THE END OF THE CERTIFICATION PERIOD. Goal Provider Goal - PATIENT WILL REMAIN SAFE WITHOUT DECOMPENSATION IN DEPRESSIVE CONDITION, WHILE MAINTAINING OPTIMAL LEVEL OF MENTAL HEALTH AND WELL BEING THROUGHOUT CERTIFICATION PERIOD. Goal Provider Goal - PATIENT WILL BE ABLE TO PERFORM DAILY FUNCTIONS AND HAVE OPTIMAL IMPROVEMENT IN LEVEL OF ANXIETY THROUGHOUT CERTIFICATION PERIOD. Goal Provider Goal - PSYCHOSOCIAL NEEDS WILL BE IDENTIFIED AND PLAN IMPLEMENTED TO MINIMIZE RISK THROUGHOUT CERTIFICATION PERIOD. Goal Provider Goal - PATIENT/CAREGIVER WILL VERBALIZE/DEMONSTRATE MANAGEMENT OF (SPECIFY) RESPIRATORY DISEASE PROCESS. CHANGES IN RESPIRATORY STATUS WILL BE IDENTIFIED AND REPORTED TO PHYSICIAN FOR PROMPT INTERVENTION THROUGHOUT THE CERTIFICATION PERIOD. Goal Provider Goal - PATIENT/CAREGIVER WILL VERBALIZE SIGNS AND SYMPTOMS OF HYPERTENSION AND WILL BE ABLE TO DEMONSTRATE ABILITY TO MANAGE EXACERBATION BY END OF THE EPISODE. Goal Provider Goal - PATIENT / CAREGIVER WILL VERBALIZE UNDERSTANDING OF EFFECTS OF URINARY INCONTINENCE BY THE END OF THE CERTIFICATION PERIOD. Goal Provider Goal - PATIENT/CAREGIVER WILL VERBALIZE/DEMONSTRATE KNOWLEDGE OF DIABETIC MANAGEMENT. CHANGES IN DIABETIC STATUS WILL BE IDENTIFIED AND REPORTED TO PHYSICIAN FOR PROMPT INTERVENTION THROUGHOUT THE CERTIFICATION PERIOD. Goal Provider Goal - PATIENT/CAREGIVER WILL VERBALIZE UNDERSTANDING OF (SPECIFY) MUSCULOSKELETAL DISEASE INCLUDING SIGNS AND SYMPTOMS, MANAGEMENT, AND PRESCRIBED TREATMENT REGIMEN BY END OF EPISODE. Progress Notes Progress Notes <paragraph>[Visit Date: 2024 by KENROY REYNA RN]:</paragraph><paragraph>NO PETS ALLERGIES LATEX NORTRYPTALINE CODEINE SHREYAS MENDEZ IS A74 YEAR OLD FEMALE LIVING IN [place]. SHE PRESENTS TODAY 08/17/2024 WITH [facility] FOR START OF CARE FOR [facility] SERVICES. PMH; T2DM, FIBROMYALGIA, OSTEOARTHRITIS, NEUROPATHY, ANXIETY AND DEPRESSION, CERVICAL AND. UMBARD COMPRESSED DISCS, HYPOTHYROIDISM. PATIENT AOX3 FORGETFUL AND OCCASINALLY CONFUSED. WEARS DEPENDS, ABLE TO ADMINISTER INSULIN, AND SELF MANAGES MEDICATIONS. APPETITE FAIR, AMBULATES WITH WALKER GAIT UNSTEADY, SERVERE PAIN, CERVICAL AND LOWER BACK, 5/10. NO S/S HYPO/HYPERGLYCEMIA. BIMS 15. PCP INFORMED OF START OF CARE PATIENT TO RECEIVE [facility] VISITS 3WK8 FOR CV ASSESSMENT AND MEDICATION MANAGEMENT. NEXT PCP FOLLOW-UP APPOINTMENT TO BE SCHEDULED. BOILER ENGINEER TO BE SCHEDULED. PATIENT REMAINS HOMEBOUND DUE TO TAXING EFFORT TO LEAVE HOME SAFELY WITHOUT ASSISTANCE AND WEAKNESS.</paragraph> Encounters Start Date/Time End Date/Time Encounter Type Admission Type Attending Clinicians Care Facility Care Department Encounter ID Discharge Date Discharge Status Discharge Condition Discharge Reason Percent Goals Met 2024-08-17 00:00:00 2024-10-15 00:00:00 Outpatient NEW ADMISSION [facility] [id number]
== END 2024-08-20 09:08 | disposition home or self-care (01) ==
LOC: HO.HMGCX 09:07
DX: Z00.00 Encounter for general adult medical examination without abnormal findings (principal); M96.1 Postlaminectomy syndrome, not elsewhere classified; M79.7 Fibromyalgia; E11.9 Type 2 diabetes mellitus without complications; Z79.4 Long term (current) use of insulin; Z13.21 Encounter for screening for nutritional disorder
CPT/HCPCS: 36415; 72114; 82306; 82607; 82746; 84439; 84443

== ENCOUNTER → 2024-08-20 09:26 | Outpatient (BNV) | payer OTHER, SELFPAY | PROVIDERS: Visit Provider Radiology Diagnostic Radiology | DX: M43.16 Spondylolisthesis, lumbar region (principal) | CPT/HCPCS: 72114 ==

== ENCOUNTER 2024-09-09 12:36 | Outpatient (AMB) | payer OTHER, SELFPAY ==
--- NOTE | 2024-09-09 12:45 | A.OFFPC_ITS ---
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 Accompanied by: Self / Same As Patient Allergies adhesive tape Allergy (Intermediate, Verified 09/09/24 14:01) Hives amitriptyline Allergy (Intermediate, Verified 09/09/24 14:01) Hives codeine Allergy (Intermediate, Verified 09/09/24 14:01) Hives nortriptyline Allergy (Intermediate, Verified 09/09/24 14:01) Hives Medication List - Last Reconciled 09/09/24 by Annalisa Jackson PA-C [Adult pull ups As directed] aspirin 81 mg PO DAILY atenolol 150 mg PO DAILY blood-glucose sensor (OM LatamStyle Lilian 3 Plus Sensor device) As directed blood-glucose,processing spec,cont (FreeStyle Lilian 3 [place]) As directed lkptletipzy-llaljkaxn-yranhwqi 200-62.5-25 mcg (Trelegy Ellipta) 1 inh inhalation DAILY glucagon 3 mg/actuation (Baqsimi) mg intranasal hydrochlorothiazide 12.5 mg PO DAILY insulin glargine (Lantus Solostar U-100 Insulin) 32 units subcut QPM insulin lispro-aabc (Lyumjev KwikPen U-100 Insulin) 1 sliding scale dose subcut USEASDIRECTD levothyroxine 112 mcg PO DAILY lisinopril 10 mg PO DAILY nitroglycerin 0.4 mg sublingual Q5M PRN pravastatin 80 mg PO BEDTIME sertraline 100 mg PO DAILY sertraline 50 mg PO DAILY tirzepatide (Mounjaro) 10 mg subcut QWEEK tizanidine 2 mg PO Q8H PRN Tobacco use date assessed: 09/09/24 Fall risk assessment: No Falls in past year Last assessed Fall Risk: 09/09/24 Dental Screening Dental Screen Date: 09/09/24 HPI f/u chronic conditions HPI Details 74-year-old female with past medical his tory of failed back syndrome, hypertension, COPD, anxiety, depression, fibromyalgia, neuropathy, insulin- dependent type 2 diabetes, hypercholesterolemia, coronary artery disease last seen 07/2024 coming in for follow up. In review of the notes, patient was seen by pain management 07/2024 advised lumbar spine MRI and appointment to follow up. Presenting with severe pain, dizziness, and management of diabetes mellitus. The patient reports irregular blood sugar levels despite insulin therapy, with readings fluctuating from 136 to over 200 mg/dL. She experiences nocturnal awakenings due to hypoglycemia and reports that her current insulin regimen is not effective. The patient describes widespread pain, particularly in the back, neck, and ears, which she attributes to fibromyalgia. She uses heat and cold t herapy to manage symptoms but reports minimal relief. The patient reports severe back pain that is exacerbated by movement and is unresponsive to current pain management strategies. She has undergone an MRI recently, but results are pending. 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 This has been ongoing for quite some time although she is unable to give exact timeline. [facility] Medical History TIA (transient ischemic attack) Nephrolithiasis Surgical History Hx laparoscopic cholecystectomy H/O tubal ligation H/O partial thyroidectomy H/O Spinal surgery Social History Housing: Apartment Alcohol intake: current Alcohol intake frequency: holidays/special occasions only Patient Tobacco Use Status: Former Tobacco user e-Cigarette/Vaping Use: Never Used Second Hand Smoke Exposure: Yes Do you have a plan to hurt others: No Plan service: No Current occupational status: retired and disabled Cognitive needs: Yes (, scooter, walker) Hearing needs: No Vision needs: Yes (Glasses) Questionnaire Thrive Questionnaire Date Thrive assessed: 09/09/24 I am a: Patient What is your living situation today?: I have a steady place to live Within the past 12 months, did the food you bought not last and you didn't have the money to get more?: Never true Within the past 12 months, did you worry whether your food would run out before you got money to buy more?: Never true Do you have trouble paying for medicines?: No Do you have trouble getting transportation to medical appointments?: No Do you have trouble paying your heating and electricity bill?: No Do you have trouble taking care of your child, family member or friend?: Yes Do you have trouble with day-to-day activities such as bathing, preparing meals, shopping, managing finances, etc.?: Yes Are you currently unemployed and looking for a job?: Yes Are you interested in more education?: No Please select the resources that you would like help with: None Currently or been in a relationship where the following occur: No concerns reported THRIVE Score: 0 ALVERTO-7 AMB Questionnaire ALVERTO-7 Date ALVERTO - 7 assessed: 09/09/24 Source: Developed by Drs. Umang Silva, Elizabeth Mar, Ronak Lindsey and colleagues, with an educational malia from [employer]. Review of Systems Const Denies body aches, Denies chills, Denies fever(s), Denies headache(s), Reports night sweats, Denies poor appetite and Reports weakness Eyes Reports no additional complaints and Reports change in vision ENT Denies dysphagia, Reports dizziness, Denies headache(s) and Denies odynophagia Card Denies chest pain, Denies syncope, Denies edema, Denies irregular heart rhythm, Reports lightheadedness and Denies dyspnea Resp Denies cough and Denies dyspnea GI Denies abdominal pain, Denies constipation, Denies dysphagia, Denies diarrhea, Denies nausea, Denies odynophagia and Denies vomiting Reports no additional complaints Musc Reports no additional complaints and Reports abnormal gait Skin/Breast Reports system reviewed and no additional complaints, except as documented Neuro Reports abnormal gait, Reports dizziness, Denies syncope, Denies headache(s) and Reports weakness Psych Reports no additional complaints Physical exam (Primary Care) Vital Signs: Last Vital Signs BP 106/64 09/09/24 12:47 Oxygen Delivery Method Room Air 09/09/24 12:47 Tobacco/Smoking Status: Tobacco use Status Tobacco use date assessed 09/09/24 09/09/24 12:51 Patient Tobacco Use Status Former Tobacco user 09/09/24 12:51 e-Cigarette/Vaping Use Never Used 09/09/24 12:51 Thrive Assessment: Date of Thrive Assessment Date Thrive assessed 09/09/24 09/09/24 12:51 Currently or been in a relationship where the following occur: No concerns reported Const General: cooperative, healthy appearing, comfortable and no acute distress Orientation/consciousness: patient oriented x3 HENMT Head: Yes normocephalic Ears: hearing grossly normal bilaterally General nose exam: Normal external nose present Eyes General: appearance normal, both eyes and all related structures Conjunctivae: conjunctivae normal Neck Neck: Yes full ROM and Yes no lymphadenopathy Resp Effort & Inspection: normal respiratory effort Auscultation: clear to auscultation bilaterally, no crackles, no rales, no rhonchi and no wheezes Cardio Rate: regular rate Rhythm: regular rhythm Skin General skin exam: no rashes or lesions noted Neuro General: patient oriented x3 and Unable to assess gait Cranial nerves: Yes Normal facial strength present, Yes Midline tongue present, Yes Ability to bilaterally rotate head present and Yes Ability to bilaterally elevate shoulders present Gait exam (Neuro): Unable to assess gait Motor exam (neuro): 5/5 motor strength present throughout Extrem General: Yes normal to inspection, Yes full ROM and No edema Psych Affect: normal affect Attitude: cooperative Insight: Good insight present (Psych) Judgement: Good judgement present (Psych) Coding Level of Care Code Est Pt Level 4 (25368) Diagnoses Hypertension I10 Dizziness R42 Insulin dependent type 2 diabetes mellitus E11.9; Z79.4 Failed back surgical syndrome M96.1 Fibromyalgia M79.7 Assessment & Plan Assessment & Plan (1) Hypertension: Code(s): I10 - Essential (primary) hypertension Category: Medical Plan: Continue on current blood pressure medication. Avoid salt intake and encourage healthy diet and regular exercise. (2) Dizziness: Code(s): R42 - Dizziness and giddiness Category: Medical Plan: Patient reporting dizziness and lightheadedness has been ongoing for quite some time but is unable to give exact timeline. I did discuss with patient I can proceed with a workup outpatient which would include a head CT as well as blood work. At this time she is wanting to go to the ED for further evaluation and treatment. Patient was escorted by chief security officer Dorys Lopez to ED today. 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 Although fruits are generally healthy they should be eaten in moderation as they are still high in sugar. Hemoglobin A1c goal of less than 7%. She is currently following with [facility] endocr[facility]ology and states she is uncomfortable with her provider as she is no longer wanting to be on insulin. 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 She recently had MRI done and plan to obtain results from MRI and continue to follow with pain management (5) Fibromyalgia: Code(s): M79.7 - Fibromyalgia Category: Medical Plan: See above Plan The patient is advised to visit the emergency department for immediate evaluation due to the severity of her symptoms, including dizziness and severe pain, which may require urgent management. In the emergency department, she will undergo blood work and potentially a CT scan to assess her current condition and rule out any acute issues. The emergency department will also manage her pain, providing relief while ensuring she is in a safe environment. Follow-up with her vacuum technician is recommended to reassess her insulin regimen, as her current treatment is not effectively controlling her blood sugar levels. Pending MRI results will be reviewed to determine the next steps in managing her chronic back pain. This note was constructed using voice recognition software. While every effort has been made to ensure accuracy and kaiako kohanga reo, still areas may have been included sometimes these areas may affect the content or meeting of the given symptoms. Total time spent caring for the patient today was 30 minutes. This includes time spent before the visit reviewing the chart, time spent during the visit, and time spent after the visit and documentation. Patient was informed and verbally consented to the use of an ambient scribe for clinic note documentation during this visit.
[2024-09-09 12:47] VITALS: BP 106/64
--- OUTSIDE RECORDS SUMMARY | 2024-09-09 13:45 | XMS_ITS | Continuity of Care Document ---
Author Name Vadim Benitez Address [address] [place] [id number] Organization Unknown Address [address] [place] [address] Medications No known medications Problems No known problems
--- OUTSIDE RECORDS SUMMARY | 2024-09-09 13:45 | XMS_ITS | Patient Health Record ---
Author Organization [facility] Address [address] [place] [address] Care Team Providers Care Yard Warehouse Worker Name Role Phone Alondra MARES, [facility] [place] Primary Care Provider Romina Min Unavailable [phone] Allergies Allergen (clinical drug ingredient) Drug/Non Drug [...] area Externally Twice a day to effected nails; Duration: 30 days 05/14/2023 Active Lantus 100 UNIT/ML [...] Problem Acquired hammer toe of right foot ([id number] 9105) Other hammer toe(s) (acquired), right foot (M20.41) Active confirmed Problem Acquired hammer toe of left foot ([id number] 9103) Other hammer toe(s) (acquired), left foot (M20.42) Active confirmed Problem 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) Active confirmed Vital Signs Height 5ft 3in in 10/18/2023 Weight 170 lbs 10/18/2023 BMI 30.11 kg/m2 10/18/2023 Encounters Encounter [facility] [address] [facility]/18[facility]23 Romina Connell Tinea unguium B35.1 and Type 1 DM with [facility]uropathy E10.42 [facility] [address] [place] [address] 01/17/2024 Romina Connell Assessments Encounter Date Diagnosis (ICD Code) Assessment Notes Treatment Notes Treatment Clinical Notes Section Notes 10/18/2023 Tinea unguium (ICD-10 - B35.1) 10/18/2023 Type 1 DM with polyneuropathy (ICD-10 - E10.42) Plan Of Treatment No Information Insurance Providers Payer Name Payer Address Payer Phone Subscriber Number Group Number Insured Name Patient Relationship to Insured Coverage Start Date Coverage End Date [facility] SCO Claims [address] [place] [address] [phone] [id number] Lisseth Chaudhari Self - patient is the insured Medical (General) History Medical History History ICD Code Angina Anxiety Arthritis asthma Back,Hip,and Knee pain Broken bones Mumps Diabetic Depression Headaches/Migraines Hiatal hernia nerve disorder Sinus conditions Stomach ulcer Surgical History Surgery Date(Month/Year) back surgery leg surgery,right Hospitalization History Reason Date(Month/Year)
--- OUTSIDE RECORDS SUMMARY | 2024-09-09 13:45 | XMS_ITS | Data Portability ---
Author Organization [facility] Address [address] [place] [address] Care Team Providers Care Wind Power Project Manager Name Role Phone PRIYANKA VÁZQUEZ Primary Care Provider HIM [facility] OTHER Assessment Encounter Date Assessment Date Assessment LastModified by Organization Details LastModified Time 02/12/2024 02/12/2024 I provided real -time medical direction via phone for this encounter, and was available for additional phone based assistance as needed. I have reviewed and agree with the Assessment and Plan as documented by the Building Performance Consultant. We discussed the diagnostic uncertainty of home visits and the risk associated with this. Per family who arrived during the visit the patient's speech and gait are altered from baseline thus there is a possibility she might be having a CVA the patient given the opportunity to ask questions. [email or web address] Not available 02/12/2024 14:49:31 06/25/2024 06/25/2024 Ms. Chaudhari is a 74yo F with Coronary Artery Disease, Hypertension, COPD/Asthma, Fibromyalgia, Chronic Back Pain who is on tizanidine for fibromyalgia who is calling today about back pain. Per patient and medic, states that she was doing excessive sweeping motions, and now has diffuse back pain . No falls or trauma. No midline TTP and no fevers. No mobility changes or urinary or bowel incontinence. No changes in output. Trying tizanidine and tylenol. States that the pain radiates to all hands and toes, which is at her baseline. No renal history. No new falls or injuries. No fevers and not on AC. Sx sound consistent with known sciatic back pain. Has had previously and has responded well to toradol. No other red flag sx. No indications for imaging warranted. Plan for toradol 30mg IM and then close PCP f/u. I provided real -time medical direction via phone for this encounter, and was available for additional phone based assistance as needed. I have reviewed and agree with the Assessment and Plan as documented by the Building Performance Consultant. We discussed the diagnostic uncertainty of home visits and the risk associated with this. In this case the patient and I felt this to be an acceptable and reasonable amount of risk given the benefit of avoiding an ED visit. The patient given the opportunity to ask questions. Follow up with primary care was recommended, as needed. Advised if develops CP/severe SOB/turning blue/uncontrolle d n/v/d or black/bloody emesis or stool/ AMS/ syncope/ high fever unresponsive to APAP to call 911- verbalized understanding of instruction. [email or web address] Not available 06/25/2024 17:53:12 07/28/2024 07/28/2024 Impression: 74yo/f CAD, HTN, fibromyalgia and chronic neck and back pain requesting visit for exacerbation of neck and back pain. Patient states was in her usual state of health, she feels like she had increased physical activity when sweeping in her home, feels like she exacerbated her chronic neck and back pain. Requesting visit for pain control. For medic in home patient is awake, alert, in no distress. A/ox3, GCS 15, well appearing. Breathing comfortably, ambulating at baseline. States no new injuries, no falls, no sudden pops or sudden episodes of pain. No associated headache, neurologic symptoms, chest pain, dyspnea, fevers, or other new signs or symptoms of illness. States this is consistent with her chronic pain episodes. On exam her vitals are re-assuring, mild systolic HTN, otherwise afebrile, no tachycardia, no hypoxia. Points to bilateral trapezius areas as areas of discomfort. Some mild associated focal tenderness, no overlying redness, swelling, warmth. No midline pain, tenderness, deformities. Moving all extremites equally. Denies other ROS. Plan: Patient endorsing exacerbation of her chronic neck and back pain and requesting a dose of IM toradol. Her exam is re-assuring without signs or symptoms of an occult emergency medical condition. Reviewed her relative and absolute contraindication s, she is not anticoagulated, states has tolerated toradol previously with no allergic reaction, no prior history of bleeding and no known CKD, based on her age obtained cmp and H+H which are re-assuring today. Patient given dose of IM toradol and advised to continue to observe her symptoms at home today, followup with PMD in 1-2 days for recheck, and given strict instructions to seek care immediately with any acute worsening or change in symptoms which she understands. I have a lower clinical suspicion at this time for an occult emergency medical condition such as ACS, PE, aortic dissection, AAA, epidural abscess or hematoma. Discharged from visit with mandatory timed followup and strict return instructions reviewed. Primary care, consider 48 hour recheck. Disposition: We discussed the diagnostic uncertainty of home visits and the risk associated with this. In this case, the patient and I felt this to be an acceptable and reasonable amount of risk given the benefit of avoiding an ED visit. We discussed the need to seek care urgently/emergen tly in the setting of any new or worsening serious symptoms [email or web address] Not available 07/28/2024 12:22:50 09/02/2024 09/02/2024 service called for neck and back pain found 74 tim with hx neck pain chronic back pain CAD COPD fibromyalgia c/o acute on chronic neck and back pain worsening over past 1-2 wks no inciting event no relief from OTC NSAIDs last ketorlac 1 month prior All: extensive list, including NSAIDs for GI upset VSS tender paraspinal muscles and midline tendenress #Acute on chronic chronic neck and back pain uncomplicated at this time no relief from OTC -ketorlac 30mg IM x1 notify service if no improvement or worsening otherwise return to ptimary team [email or web address] Not available 09/02/2024 21:49:56 Plan of Treatment Reminders Order Date Submit Date Provider Last Modified By Organization Details Last Modified Time Details Appointments None recorded. Lab BMP, serum or plasma [address], [address] 5 14:38:13 hemoglobin + hematocrit, blood [address], [address] 14:38:14 Referral None recorded. Procedures None recorded. Surgeries None recorded. Imaging None recorded. Medication Orders ketorolac 30 mg/mL injection solution 2024 025 [email or web address] [facility], [address] [facility], [place], [address], 5 19:28:56 ketorolac 30 mg/mL injection solution 2024 025 [email or web address] [facility], [address] [facility], [place], [address], 5 12:16:41 ketorolac 30 mg/mL injection solution 2024 025 [email or web address] [facility], [address] [facility], [place], [address], 17:52:49 Patient TargetsNo targets recorded. Patient InstructionsNo instructions recorded. Reason for Referral None Reported. Results Created Date Observation Date Name Description Value Unit Range Abnormal Flag Note LastModifiedBy Organization Detail LastModifiedTime Result Notes None recorded. Medical Equipment None Reported. Allergies Allergen ID Allergen Name Allergen Category Reaction Reaction Severity Criticality Documentation Date Start Date Code Code System Note Provider Name and Address Organization Details Recorded Time 74294 codeine medicatio n Not available Not available Not available 02/12/2024 2670 RxNorm Not Available [facility] production 13:38:29 37666 Demerol medicatio n Not available Not available Not available 02/12/2024 11831 1 RxNorm Not Available [facility] - production 13:38:29 11765 Jardiance medicatio n Not available Not available Not available 02/12/2024 25885 59 RxNorm Not Available [facility] - production 13:38:29 01977 meloxicam medicatio n Not available Not available Not available 02/12/2024 99561 RxNorm Not Available [facility] - production 13:38:29 13212 Naprosyn medicatio n Not available Not available Not available 02/12/2024 53229 2 RxNorm Not Available [facility] - production 13:38:29 99757 paroxetin e Not available Not available Not available Not available 02/12/2024 14153 RxNorm Not Available [facility] - production 4 13:38:29 34098 fluoxetin e medicatio n Not available Not available Not available 02/12/2024 4493 RxNorm Not Available [facility] production 4 13:38:29 83732 tramadol medicatio n Not available Not available Not available 02/12/2024 88091 RxNorm Not Available [facility] production 4 13:38:29 43 amitripty line medicatio n Not available Not available Not available 04/22/2021 704 RxNorm Not Available [facility] production 4 13:38:29 44 nortripty line medicatio n Not available Not available Not available 04/22/2021 7531 RxNorm Not Available [facility] 4 13:38:29 45 latex environme nt,medica tion Not available Not available Not available 04/22/2021 51342 91 RxNorm Not Available [facility] 4 03:46:54 8803 morphine medicatio n Not available Not available Not available 12/25/2023 7052 RxNorm Not Available [facility] 4 03:46:54 Medications Name Sig Start Date Stop Date Status Note LastModified by Organization Details LastModified Time pravastatin 40 mg tablet active Not Available Not Available Not Available sertraline 100 mg tablet active Not Available Not Available Not Available clopidogrel 75 mg tablet active Not Available Not Available Not Available tramadol 50 mg tablet active Not Available Not Available No t Available ketorolac 30 mg/mL (1 mL) injection solution 15 mg IM once for pain 2022 active Not Available Not Available Not Avai lable pantoprazole 40 mg tablet,delay ed release active Not Available Not Available N ot Available lisinopril 10 mg tablet active Not Available Not Available Not Available hydrochlorot hiazide 12.5 mg capsule active Not Available Not Available N ot Available diclofenac potassium 50 mg tablet active Not Available Not Available No t Available nitroglyceri n 0.4 mg sublingual tablet active Not Available Not Available Not Available gabapentin 300 mg capsule active Not Available Not Available Not Available sertraline 25 mg tablet active Not Available Not Available Not Available pravastatin 20 mg tablet active Not Available Not Available Not Available ketorolac 60 mg/2 mL intramuscula r solution Inject 15 mg by intramuscul ar route. 2022 active Not Available Not Available Not Avai lable sertraline 50 mg tablet active Not Available Not Available Not Available atenolol 50 mg tablet active Not Available Not Available No t Available levothyroxin e 112 mcg tablet active Not Available Not Available Not Available Novolog FlexPen U-100 Insulin aspart 100 unit/mL (3 mL) subcutaneous active Not Available Not Available Not Available cyclobenzapr ine 5 mg tablet active Not Available Not Available Not Available Pulmicort Flexhaler 180 mcg/actuatio n breath activated active Not Available Not Available No t Available FreeStyle Lite Strips active Not Available Not Available Not Available Lantus Solostar U-100 Insulin 100 unit/mL (3 mL) subcutaneous pen active Not Available Not Available Not Available Humalog KwikPen (U-100) Insulin 100 unit/mL subcutaneous active Not Available Not Available Not Available Unifine Pentips 32 gauge x 5/32 needle active Not Available Not Available Not Available Trulicity 1.5 mg/0.5 mL subcutaneous pen injector active Not Available Not Available Not Available Qvar RediHaler 80 mcg/actuatio n HFA breath activated aerosol active Not Available Not Available Not Available FreeStyle Lilian 14 Day Sensor kit active Not Available Not Available N ot Available Trulicity 3 mg/0.5 mL subcutaneous pen injector active Not Available Not Available Not Available Trulicity 4.5 mg/0.5 mL subcutaneous pen injector active Not Available Not Available Not Available Vitals Date Recorded Body temperature Respiratory rate Oxygen saturation Oxygen saturation in Arterial blood by Pulse oximetry Heart rate Systolic And Diastolic Provider Name and Address Organization Details Last Updated DateTime 4 98.4 [degF] 18 /min 98 % 98 % 91 /min 154/81 mm[Hg] Not Available [facility] 4 13:00:51 Date Recorded Heart rate Body temperature Respiratory rate Oxygen saturation Oxygen saturation in Arterial blood by Pulse oximetry Systolic And Diastolic Provider Name and Address Organization Details Last Updated DateTime 5 71 /min 97.9 [degF] 18 /min 97 % 97 % 142/86 mm[Hg] Not Available [facility] 5 17:48:57 Date Recorded Oxygen saturation Oxygen saturation in Arterial blood by Pulse oximetry Body height Body weight Heart rate Respiratory rate Body temperature Systolic And Diastolic Provider Name and Address Organization Details Last Updated DateTime 5 100 % 100 % 160.02 cm 01922.6 4 g 87 /min 16 /min 97.9 [degF] 135/84 mm[Hg] Not Available [facility] 5 11:52:31 Date Recorded Oxygen saturation Oxygen saturation in Arterial blood by Pulse oximetry Respiratory rate Body height Body weight Heart rate Body temperature Systolic And Diastolic Provider Name and Address Organization Details Last Updated DateTime 5 99 % 99 % 14 /min 157.48 cm 06038.6 g 99 /min 97.9 [degF] 124/82 mm[Hg] Not Available [facility] 5 19:24:51 Date Recorded Oxygen saturation Oxygen saturation in Arterial blood by Pulse oximetry Respiratory rate Body temperature Heart rate Systolic And Diastolic Provider Name and Address Organization Details Last Updated DateTime 4 98 % 98 % 16 /min 97.5 [degF] 95 /min 146/80 mm[Hg] Not Available [facility] 4 14:30:11 Social History None recorded. Functional Status None recorded. Mental Status None recorded. Family History Nothing Reported. Medical History No medical history recorded. Gynecological HistoryNo gynecological history recorded. Obstetrics History GPAL:G 0 P 0 0 0 0 Past Encounters Encounter ID Performer Location Encounter Start Date Encounter Closed Date Diagnosis/Indication Diagnosis SNOMED-CT Code Diagnosis ICD10 Code Diagnosis Note [id number] Opal Wilson MD [facility] [address] 04/22/2021 22:46:42 10/12/2021 11:31:44 Low back pain 147182770 M54.50 Lumbar radiculopathy 128 503733 M54.16 [id number] Angel Sampson MD Main - [facility] [address] 03/31/2022 13:39:44 04/03/2022 12:15:20 Costal chondritis 96905393 M94.0 Patient presents with exacerbati on of costochond ritis. This is worsened by neighbors smoking but is also reproducib le to palpation and does not respond to bronchodil ators, arguing against reactive airways disease exacerbati on or cardiac chest pain. I sugested tylenol and ibuprofen (latter only if her long-term providers say it's OK, beyond a single dose). [id number] MD [facility] - [facility] [address] [place] [address] 05/31/2022 13:10:05 06/02/2022 10:28:07 Chronic low back pain 299601071 M54.50 Patient has a history of chronic low back pain with lower extremity radiation, worsened in the setting of exertion. Per build automation engineer she is supposed to be taking ibuprofen and a muscle relaxant , both of which she has not taken for the last three days. She reports symptoms are consistent with her chronic pain, otherwise unchanged. Doubt new process given descriptio n of symptoms and time course. Plan for symptomati c treatment and continued outpatient follow-up. [id number] Kyle Boston MD [facility] - [facility] [address] [place] [phone] 07/06/2022 13:23:29 07/06/2022 15:26:36 Fibromyalgia 597651517 M79.7 This 72-year-ol d female with fibromyalg ia has had increased pain for the past day due to increased activity. She takes ibuprofen but isn't getting much relief. I ordered Toradol 15 mg IM. I recommende d that she also try adding Tylenol as needed for pain. She will follow-up with her PCP. The patient agreed with this plan. [id number] Evelin Kwok MD [facility] - [facility] [address] [place] [address] 08/25/2022 18:26:01 08/26/2022 10:05:02 Hyperglycemia 88508523 R73.9 [id number] Opal Wislon MD [facility] - [facility] [address] [place] [address] 11/29/2022 11:26:46 12/05/2022 00:03:06 Chronic back pain 486024549 M54.9 History of DJD/ fibromyalg ia with acute flare- advised close f/u with pcp annel- advised warm compresses gently qid- denies hx ckd or PUD-(creat inine 0.7 on 08/25/2022 )has had relief with ketorolac in the past-has ibuprofen and Tylenol at home. Advised no ibuprofen for 6 hours after the ketorolac. [place] [id number] Yun Smith MD [facility] - [facility] [address] [place] [address] 01/23/2023 10:14:24 01/23/2023 11:40:31 Osteoarthritis 735110895 M19.90 ketorolac [id number] Kyle Boston MD [facility] - [facility] [address] [place] [address] 03/27/2023 13:00:48 03/27/2023 21:37:01 Chronic pain syndrome [id number] G89.4 This 73-year-ol d female has chronic pain. She recently moved and her pain has increased. She takes ibuprofen but today it hasn't been effective. I ordered Toradol 30 mg IM. She will follow-up with her PCP. The patient agreed with this plan. [id number] Opal Wilson MD [facility] [address] [place] [address] 02/12/2024 14:30:07 02/12/2024 22:14:46 Slurred speech 453134169 R47.81 With gait disturbanc e/possible CVA advised the need for advanced imaging and workup in the emergency room. Patient agreed with the plan as did family. EMS activated and patient sent to [facility]. Report given by myself to ED charge entry clerk [id number] ANGELIA LAWRENCE MD [facility] [address] [place] [address] 06/25/2024 17:48:55 06/25/2024 21:34:30 Bilateral sciatica [id number] M54.31 M54.32 [id number] Malik Broussard MD [facility] [address] [place] [address] 07/28/2024 11:52:28 07/28/2024 14:23:14 Chronic pain 06675628 M54.2 M54.9 G89.29 [id number] Jeffrey Duarte MD Main-[facility] [address] [address] 09/02/2024 19:24:48 09/03/2024 21:11:50 Chronic neck pain [id number] 107 M54.2 G89.29 Health Concerns Section Related Observation LastModified by Organization Detai ls LastModified Time None Recorded Concern Status LastModified by Organization Details LastModified Time None Recorded Advance Directives Directive None Recorded Payers Insurance Date Sequence Insurance Name Policy Number Policy Lewis Covered Member ID Lewis Member ID Guarantor Name 08/25/2022 1 [facility] - DOS PRIOR TO 2022 - DUAL ELIGIBLE (MEDICARE REPLACEMENT/ADV ANTAGE - HMO) Lisseth Chaudhari [id number] Lisseth Veliz Fara 09/02/2024 1 [facility] - DOS ON OR AFTER 2022 - DUAL ELIGIBLE - SENIOR LIVING OPTIONS AND ONE CARE (MEDICARE REPLACEMENT/ADV ANTAGE - HMO) Lisseth Chaudhari [id number] Lisseth Veliz Fara Notes Date Note Type Note Provider Name and Address Organization Details Recorded Time 03/27/2023 text/html HPI: Member called into [facility] stating she is in pain and the line was transferred to the [facility]. Lisseth states that she moved from the upstairs to the down stairs apartment and over did it. Lisseth reports neck, back, right flank, right knee pain. She states it is a 10/10 pain. Lisseth states she has used her heating pad, rub on cream, and has taken Tylenol with no relief. ................... ................... ................... ................... ................... ................... ................... ........ [facility] Nurse Triage Notes (Moises Escoto): Comments: HPI was reviewed by this video games storywriter - No further information needed at this time. Kyle Boston MD [address] [facility],[address], [place], [address], [facility] 03/27/2023 13:03:51 02/12/2024 text/html [facility] Nurse Triage Notes (Moises Escoto - RN): Reason For Request: pt is feeling weak, dizzy and is experiencing back spasmsasked pt to verify pharmacy and she kept responding with cca, unable to update pharmacy Denies: Worst Headache of life New onset of vision loss Sudden onset -unilateral weakness/gait disturbance Fall with head strike and altered LOC New onset of Slurred speech or difficulty finding words Sudden Mental status changes Head pain with fever chills and neck pain Seizure activity Head pain with nausea vomiting Chief Complaints: Dizziness PMH: Coronary Artery Disease, Hypertension, COPD/Asthma Comments: Oyster Washer verified the Pt.'s name//address and phone number. Education provided on the response time and the Pt. was advised to monitor reported s/s and seek emergency treatment if needed. Pt reports feeling unwell - muscle spasms with dizziness - Right eye and lip heaviness - Off balance. Vision changes - Headache 07/05 - Denies N/V - Denies chest pain - S/S started the other day, Denies taking any over the counter medication. ER treatment declined - Concerned expressed. ................... ................... ................... ................... ................... ................... ................... ........ Building Performance Consultant Note From Piotr Khan: This 73-year-old female with a history including but not limited to CAD, HTN, COPD requested a visit today to address several neurological symptoms that started yesterday. Patient complains of a heaviness feeling in her head, intermittent dizziness, numbness to the right side of her face, vision changes that she is unable to fully articulate in her right eye and weakness in her right leg causing an unsteady gait. Patient denies any chest pain, shortness of breath, loss of bowel or bladder function, fevers, nausea, vomiting, diarrhea. Family who arrived later in the visit confirmed that her speech is noticeably slurred.Patient presents awake, alert, anxious, with slurred speech. Her vital signs are reasonably stable and she is afebrile. She has a very noticeable unsteady gait favoring the right side. Pupils 3 mm +PERRLA. Equal hand strength and no arm drift. Lungs are clear throughout auscultation. Abdomen is soft, nontender, nondistended. No lower extremity edema.I explained to the patient that based on her symptoms emergency department evaluation is indicated. Patient is agreeable for ambulance transport to [facility] emergency department. 911 was initiated and verbal SBAR was given to Marianne CARTER. The patient was given the opportunity to ask questions. ................... ................... ................... ................... ................... ................... ................... ........ [facility] Consulted: Opal Wilson ................... ................... ................... ................... ................... ................... ................... ........ Disposition: Tomi Wilson MD [address] [facility],[address], [place], [address], [facility] - [employer] 02/12/2024 20:28:40 06/25/2024 text/html [facility] Nurse Triage Notes (Honorio Perryle): Reason For Request: fibromyalgia flare up, pt states her back and shoulders are hurting Denies: Falls with head strike and LOC Falls from a standing position, no LOC, patient is amnestic to the event Falls with isolated injury and deformity noted to limb Falls with inability to move post fall Cool extremities after fall or injury Chief Complaints: Back Pain PMH: Coronary Artery Disease, Hypertension, COPD/Asthma, Fibromyalgia, Chronic Back Pain PMH Reviewed at 06/25/2024 - 16:20 Allergies Reviewed at 06/25/2024 16:20 Comments: 74 y.o female complains of Back Pain Patient reports exacerbation of low back and shoulder pain since yesterday. Patient was sweeping leaves off of patio that aggravated pain. Patient has received Toradol in the past for pain relief with flare ups. Has not taken any pain medication today. I provided information on the mobile health provider response time and advised the patient and/or caregiver to monitor reported signs and symptoms. I discussed the warning signs of when to seek emergency care. ................... ................... ................... ................... ................... ................... ................... ........ Building Performance Consultant Note From Gabriele Lund: Encountered patient seated upright and conscious. Patient reports that for the last five days she has been suffering from a fibromyalgia flare-up and her prescribed medications have not been helping with her pain. Patient reports that she was attempting to sweep her balcony earlier today and began experiencing excruciating, debilitating full body pain originating from her back. Patient denies chest pain or shortness of breath at this time. Skin warm, dry and of appropriate color for ethnicity. Head and neck free of trauma edema.-JVD. Breath sounds present clear and equal bilaterally. Abdomen is soft, non-tender and non-distended. Extremities, free of trauma and edema. [facility] contacted: orders for 30 mg of IM Toradol administered. Patient encouraged to monitor for priority symptoms, such as chest pain or shortness of breath, and additionally to attempt to follow up with primary care in order to receive further treatment for her chronic ailment. Patient verbalizes understanding of the plan, expresses gratitude, and states she is comfortable with remaining home at this time. [facility] Medication Orders: ketorolac 30 mg/mL injection solution: Administered ................... ................... ................... ................... ................... ................... ................... ........ [facility] Consulted: Angelia Lawrence ................... ................... ................... ................... ................... ................... ................... ........ Disposition: Tomi LAWRENCE MD [address] [facility],[address], [place], [id number], SENSIMED 06/25/2024 21:30:51 07/28/2024 text/html HPI: Lisseth called into [facility] stating she cant handle the pain she is in, her upper and lower back, neck and hips. She reports history of chronic back pain and Fibromyalgia. She states her pain rating is 10/10, she states she normally takes Tylenol with very little effect. She states she does not have any at this time and has taken nothing today. She wants InstEd visit as she has used them recently with good effect. ................... ................... ................... ................... ................... ................... ................... ........ CRC Nurse Triage Notes (Patricia Garcia): Reason For Request: Pain Chief Complaints: Neck Pain, Back Pain PMH: Coronary Artery Disease, Hypertension, COPD/Asthma, Fibromyalgia, Chronic Back Pain PMH Reviewed at 07/28/2024:30 Allergies Reviewed at 07/28/2024:30 Pain Assessment: Level 10 out of 10 Comments: HPI reviewed Building Performance Consultant Organization Information for Vinayak Aggarwalprateek Legal Name: [employer]. Address: [address] [place] [address], Beef Cattle Farmer: Adan Tsang MD CLIA No.: [id number] Building Performance Consultant POC Test Results from Vinayak Aggarwal RAUL iSJúnior [employer]+ (12:12:14) Na: 141 mEq/L K: 4.1 mEq/L Cl: 106 mEq/L iCa: 1.14 mmol/L TCO2: 24 mmol/L Glu: 73 mg/dL BUN: 14 mg/dL Crea: 0.7 mg/dL Hct: 44 % Hb: 15.0 g/dL A mmol/L Cartridge Number: [id number] ................... ................... ................... ................... ................... ................... ................... ........ Building Performance Consultant Note From Vinayak Aggarwal: [facility] visit for female pt complaining of pain in neck and back. Pt presents sitting in recliner in some obvious discomfort. Pt reports history of chronic back pain due to disc issue in addition to fibromylagia. Pt asking for toradol shot with good results in the past with it. No NSAIDS taken today, nor tylenol. Pt has been doing rest, heat, and topical analgesic. V/S taken as listed. Pt afebrile. Affected area palpated with muscular tenderness noted in trapezius, and lats and lower back as well. No signs of trauma and pt denies injury or exertion and reports pt is consistent with chronic pain. Consulted with [facility] who ordered blood draw for creatinine and hemoglobin. Blood drawn and results uploaded and administered 30 mg IM toradol per Dr. Broussard. [facility] Lab Orders: BMP, serum or plasma: Performed hemoglobin + hematocrit, blood: Performed [facility] Medication Orders: ketorolac 30 mg/mL injection solution: Administered ................... ................... ................... ................... ................... ................... ................... ........ [facility] Consulted: Malik Broussard ................... ................... ................... ................... ................... ................... ................... ........ Disposition: Fulfilled Malik Broussard MD [address] [facility],[address], [place], [address], SENSIMED 07/28/2024 14:11:49 09/02/2024 text/html CRC Nurse Triage Notes (Francesca Rodriguez): Reason For Request: Patient has pain All over . Mostly back pain. Chief Complaints: Back Pain, Extremity Pain PMH: Coronary Artery Disease, Hypertension, COPD/Asthma, Fibromyalgia, Chronic Back Pain PMH Reviewed at 09/02/2024 - 12:41 Allergies Reviewed at 09/02/2024 12:41 Pain Assessment: Level 10 out of 10 Comments: 74 y.o female complains of Back Pain, Extremity Pain Pt calling for all over pain. the area is mainly her back, but has head and neck pain. She sánchez shave fibromyalgia. She denies any falls or injuries. She has had pain for a few weeks but has been increasing. 10/10 pain level She does not take any pain medication , but has been taking aleeve in the past few days but did not help. She does not have any kidney disease and is not on blood thinners I provided information on the mobile health provider response time and advised the patient and/or caregiver to monitor reported signs and symptoms. I discussed the warning signs of when to seek emergency care. ................... ................... ................... ................... ................... ................... ................... ........ Building Performance Consultant Note From Zack Danny: Patient alert and oriented complains of pain all over . Patient reports pain in head neck, lower back elbows and knees. Patient reports pain acute on chronic, worse over the last week. Patient reports walking is painful. Patient denies recent falls or trauma. Patient reports taking ibuprofen 400 mg at noon today with some relief. Patient has appointment and pain clinic next month. Patient denies any other pain or complaints. Patient denies chest pain, difficulty, breathing, nausea, vomiting, diarrhea, weakness, dizziness, or any other. Patient pink warm, dry, secondary exam unremarkable. Lung sounds clear negative increase work of breathing positive full sentences. Abdomen soft, nontender extremities unremarkable. Patient appears to be in pain when she moves her limbs. CSM in all. Patient requests IM injection of medication Inst[facility] gave her last month for same. Medication administered as ordered without complication using five rights. Red flags patient education discussed. Patient demonstrates understanding of care and plan, understands not to take ibuprofen until tomorrow. Patient advised to follow up with primary care physician. [facility] Medication Orders: ketorolac 30 mg/mL injection solution: Administered ................... ................... ................... ................... ................... ................... ................... ........ [facility] Consulted: Jeffrey Duarte ................... ................... ................... ................... ................... ................... ................... ........ Disposition: Fulfilled Jeffrey Duarte MD [address] [place] [address],[address], [place], [address], ATIF ARRIGAA 09/02/2024 21:50:12 OBGyn Episode No OBEpisode recorded.
== END 2024-09-09 14:02 | disposition home or self-care (01) ==
LOC: HO.HMCH 12:37
DX: I10 Essential (primary) hypertension (principal); R42 Dizziness and giddiness; E11.9 Type 2 diabetes mellitus without complications; Z79.4 Long term (current) use of insulin; M96.1 Postlaminectomy syndrome, not elsewhere classified; M79.7 Fibromyalgia

== ENCOUNTER 2024-09-09 13:56 | Emergency (ER) | payer OTHER, SELFPAY ==
[2024-09-09 13:58] VITALS: BP 143/71; PULSE 100; RESP 18; TEMP 36.6; O2SAT 99; BMI 26.6
--- NOTE | 2024-09-09 14:03 | ECG_ITS ---
Test Reason : DIZZINESS Blood Pressure : */* mmHG Vent. Rate : 96 BPM Atrial Rate : 96 BPM P-R Int : 160 ms QRS Dur : 72 ms QT Int : 380 ms P-R-T Axes : 44 2 59 degrees QTcB Int : 480 ms Normal sinus rhythm Normal ECG No previous ECGs available Referred By: Generic ED Physician Electronically Signed By: JATIN SALDAÑA
[2024-09-09 14:05] LABS: Glucose, Whole Blood 193 mg/dL (60-115)
[2024-09-09 14:32] LABS: MANUAL DIFF FLAG NO
[2024-09-09 14:33] LABS: Hematocrit 44.7 % (37.0-47.0); Hemoglobin 14.5 g/dl (12.0-16.0); Imm Gran Abs Auto 0.01 X10*3/uL (0.00-0.03); Imm Gran Pct Auto 0.2 % (0.0-0.4); Lymphocytes Absolute Auto 2.2 X10*3/uL (1.2-4.9); Mean Corpuscular HGB Conc 32.4 g/dl (31.0-35.0); Mean Corpuscular Hemoglobin 28.0 pg (27.0-33.0); Mean Corpuscular Volume 86.5 fL (80.0-98.0); NRBC Abs Auto 0.000 X10*3/uL (0.0-0.012); NRBC Pct Auto 0.0 /100WBC (0.0-0.2); Platelet Count 221 X10*3/uL (160-400); Red Blood Count 5.17 X10*6/uL (4.20-5.50); White Blood Count 5.7 X10*3/uL (4.8-10.8)
[2024-09-09 14:52] LABS: Alanine Aminotransferase 14 U/L (0-31); Albumin Level 4.1 g/dL (3.5-5.0); Alkaline Phosphatase 82 U/L (39-117); Anion Gap 12 (12-20); Aspartate Amino Transferase 26 U/L (5-31); Blood Urea Nitrogen 18 mg/dL (9-16); Calcium 9.6 mg/dL (8.4-10.2); Carbon Dioxide 27 mmol/L (22-29); Chloride 106 mmol/L (96-108); Creatinine Clr Calc Pharmacy 41.4; Estimated Glomerular Filt Rate 50; Magnesium 2.4 mg/dL (1.6-2.6); Potassium 3.9 mmol/L (3.3-5.1); Sodium 141 mmol/L (135-145); Total Protein 7.4 g/dL (6.5-8.0)
[2024-09-09 15:03] LABS: Troponin-I High Sensitivity < 2.7 ng/L (<3.5-17.0)
--- NOTE | 2024-09-09 16:56 | PC.NURSE ---
This Rn went to bring pt back, pt was outside on sidewalk on her electric scooter, pt stated she was not going to come in and was going home, PIT provider aware
--- NOTE | 2024-09-09 17:08 | PC.NURSE ---
attempted to pull pt back to main ER room - pt was sitting outside waiting room stating that she felt better and wanted to go home
== END 2024-09-09 17:07 | disposition left against medical advice (07) ==
PROVIDERS: Physician Assistant Medical; Emergency Provider Emergency Medicine
DX: R42 Dizziness and giddiness (principal); Z53.21 Procedure and treatment not carried out due to patient leaving prior to being seen by health care provider; I10 Essential (primary) hypertension; E11.9 Type 2 diabetes mellitus without complications; M96.1 Postlaminectomy syndrome, not elsewhere classified; M79.7 Fibromyalgia
CPT/HCPCS: 36415; 80053; 82947; 83735; 84443; 84484; 85025; 93005; 99212; 99281; 99283

== ENCOUNTER → 2024-09-09 14:03 | Outpatient (BNV) | payer OTHER, SELFPAY | PROVIDERS: Emergency Provider Emergency Medicine; Visit Provider Internal Medicine | DX: R42 Dizziness and giddiness (principal) | CPT/HCPCS: 93010 ==

== ENCOUNTER → 2024-09-22 23:59 | Outpatient (BNV) | payer OTHER, SELFPAY | DX: E11.9 Type 2 diabetes mellitus without complications (principal) | CPT/HCPCS: G0180 ==

== ENCOUNTER 2024-12-19 13:01 | Outpatient (AMB) | payer OTHER, SELFPAY ==
--- OUTSIDE RECORDS SUMMARY | 2023-07-26 10:00 | XMS_ITS ---
Author Organization [facility] Address [address] [place] [address] Care Team Providers Care Agile Tester Name Role Phone Alondra MARES, Fermín Primary Care Provider Romina Min Unavailable [phone] Encounters Encounter Location Date Provider Diagnosis [address] [address] 07/26/2023 Romina Connell Plan Of Treatment No Information Progress Notes * Lisseth CHAUDHARI AnnDOB:[birth year] (74 yo F)Acc No.[id number]:07/26/2023 Progress Note Patient: Alea THOMAS Lisseth Ledesma Provider: Flor Connell DPM :1950 A ge:73 Y S ex:Female Date:07/26/2023 Address:[address] [place], [place] [address] [place] [address], [address], [place], [place] Pcp:Fermín Cantu MD Subjective: * Chief [...] 0 07/26/2023 Generated for Printi ng/Faxing/eTransmitting on: 03:03 PM EDT
--- OUTSIDE RECORDS SUMMARY | 2023-09-10 10:30 | XMS_ITS ---
Author Organization [facility] Address [address] [facility] [place] [address] Care Team Providers Care Mounter Sousaphones Name Role Phone Alondra MARES, Fermín Primary Care Provider Romina Min Unavailable [phone] REASON FOR VISIT seen sooner Encounters Encounter Location Date Provider Diagnosis [address] [address] 09/10/2023 Romina Connell Plan Of Treatment No Information Progress Notes * Lisseth CHAUDHARI AnnDOB:[birth year] (74 yo F)Acc No.[id number]:09/10/2023 Progress Note Patient: Lisseth CAREY Provider: Flor Connell DPM :1950 A ge:73 Y S ex:Female Date:09/10/2023 Address:[address], [place], [place] Pcp:Fermín Cantu MD Subjective: * Chief [...] DPM Date: 0 09/10/2023 Generated for Printi ng/Falivia/eTransmitting on: 03:03 PM EDT
--- OUTSIDE RECORDS SUMMARY | 2024-01-17 09:30 | XMS_ITS ---
Author Organization [facility] Address [address] [facility] [place] [address] Care Team Providers Care Hand Compositor Name Role Phone Alondra MARES, Fermín Primary Care Provider Romina Min Unavailable [phone] Encounters Encounter Location Date Provider Diagnosis [address] [address] 01/17/2024 Romina Connell Plan Of Treatment No Information Progress Notes * Lisseth CHAUDHARI AnnDOB:[birth year] (74 yo F)Acc No.[id number]:01/17/2024 Progress Note Patient: Alea THOMAS Lisseth Ledesma Provider: Flor Connell DPM :1950 A ge:73 Y S ex:Female Date:01/17/2024 Address:[address] [place], [place] [address] [place] [address], [place], [place] Pcp:Fermín Cantu MD Subjective: * Chief [...] Date: 03/18/2023 Generated for Printi ng/Faxing/eTransmitting on: 03:03 PM EDT
--- NOTE | 2024-12-19 13:11 | A.OFFPC_ITS ---
Vital Signs 12/19/24 13:12 Height 5 ft 1.22 in Weight 177 lb 7.554 oz BMI 33.3 BP 120/60 Blood Pressure Location Lt brachial Position Sitting Pulse 95 Pulse Source Pulse Oximeter Temp 96.9 F Temp Source Temporal Artery Scan Pulse Oximetry (%) 96 Oxygen Delivery Method Room Air Intake Visit Reasons: Back pain Intake Note: Patient is here to follow up on Back pain. 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 Required: No Line Decorator: Not Required per policy Accompanied by: Self / Same As Patient Allergies adhesive tape Allergy (Intermediate, Verified 12/19/24 13:12) Hives amitriptyline Allergy (Intermediate, Verified 12/19/24 13:12) Hives codeine Allergy (Intermediate, Verified 12/19/24 13:12) Hives nortriptyline Allergy (Intermediate, Verified 12/19/24 13:12) Hives Medication List - Last Reconciled 12/19/24 by Tiago Talbert MD [Adult pull ups As directed] aspirin 81 mg PO DAILY atenolol 150 mg (3 x 50 mg) PO DAILY 30 days blood-glucose sensor (Bold TechnologiesStyle Lilian 3 Plus Sensor device) As directed 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-glucose,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,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 (FreeStyle Lilian 3 [place]) As directed [electric scooter cushion As directed] azwkueusbei-connyapcg-lpvtnuri 200-62.5-25 mcg (Trelegy Ellipta) 1 inh inhalation DAILY glipizide ER 2.5 mg PO DAILY glucagon 3 mg/actuation (Baqsimi) mg intranasal hydrochlorothiazide 12.5 mg PO DAILY insulin glargine (Lantus Solostar U-100 Insulin) 32 units subcut QPM levothyroxine 112 mcg PO DAILY lisinopril 10 mg PO DAILY meloxicam 15 mg PO DAILY nitroglycerin 0.4 mg sublingual Q5M PRN pravastatin 80 mg PO BEDTIME sertraline 100 mg PO DAILY tirzepatide (Mounjaro) 10 mg subcut QWEEK Tobacco use date assessed: 12/19/24 Fall risk assessment: No Falls in past year Last assessed Fall Risk: 12/19/24 Dental Screening Dental Screen Date: 09/09/24 HPI HPI Comments History of Present Illness Details The patient is a 74-year-old female presenting with chronic back pain and gastrointestinal discomfort. The patient reports experiencing chronic pain primarily in her back and right side, which has been persistent and worsening over time. She has a history of dislocation in her lower back and neck, contributing to her ongoing pain. Despite the severity of the pain, she has not been taking any medications regularly due to a preference to avoid drugs. Although she was prescribed Meloxicam in the past. The patient also reports symptoms of depression, which she attributes to changes in her bowel habits and overall life circumstances. She has been diagnosed with diabetes mellitus, which she manages without repo rting any specific complications related to kidney function. Her dietary habits include limited lactose intake, as she experiences intolerance to dairy products. The patient experiences migraine headaches, which are exacerbated by stress and accompanied by blurry vision. She has sought medical attention for these headaches in the past. Gastroesophageal reflux disease (GERD) is another concern, with symptoms of acid reflux and belching. She has attempted dietary modifications to alleviate these symptoms, including reducing lactose intake and monitoring her consumption of certain foods. [facility] Medical History TIA (transient ischemic attack) Nephrolithiasis Surgical History Hx laparoscopic cholecystectomy H/O tubal ligation H/O partial thyroidectomy H/O Spinal surgery Social History Housing: Apartment Alcohol intake: current Alcohol intake frequency: holidays/special occasions only Patient Tobacco Use Status: Former Tobacco user e-Cigarette/Vaping Use: Never Used Second Hand Smoke Exposure: Yes service: No Current occupational status: retired and disabled Cognitive needs: Yes (, scooter, walker) Hearing needs: No Vision needs: Yes (Glasses) Questionnaire Thrive Questionnaire Date Thrive assessed: 08/07/24 I am a: Patient What is your living situation today?: I have a steady place to live Within the past 12 months, did the food you bought not last and you didn't have the money to get more?: Never true Within the past 12 months, did you worry whether your food would run out before you got money to buy more?: Never true Do you have trouble paying for medicines?: No Do you have trouble getting transportation to medical appointments?: No Do you have trouble paying your heating and electricity bill?: No Do you have trouble taking care of your child, family member or friend?: Yes Do you have trouble with day-to-day activities such as bathing, preparing meals, shopping, managing finances, etc.?: Yes Are you currently unemployed and looking for a job?: Yes Are you interested in more education?: No Please select the resources that you would like help with: None Currently or been in a relationship where the following occur: No concerns reported THRIVE Score: 0 ALVERTO-7 AMB Questionnaire ALVERTO-7 Date ALVERTO - 7 assessed: 09/09/24 Source: Developed by Drs. Umang Silva, Elizabeth Mar, Ronak Lindsey and colleagues, with an educational malia from [employer]. Review of Systems Const Details: Positives besides what was mentioned in HPI are in BOLD Constitutional: No Weight Change, No Fever, No Chills, No Night Sweats, No Fatigue, No Malaise ENT/Mouth: No Hearing Changes, No Ear Pain, No Nasal Congestion, No Sinus Pain, No Hoarseness, No sore throat, No Rhinorrhea, No Swallowing Difficulty Eyes: No Eye Pain, No Swelling, No Redness, No Foreign Body, No Discharge, No Vision Changes Cardiovascular: No Chest Pain, No SOB, No PND, No Dyspnea on Exertion, No Orthopnea, No Claudication, No Edema, No Palpitations Respiratory: No Cough, No Sputum, No Wheezing, No Smoke Exposure, No Dyspnea Gastrointestinal: No Nausea, No Vomiting, No Diarrhea, No Constipation, No Pain, No Heartburn, No Anorexia, No Dysphagia, No Hematochezia, No Melena, No Flatulence, No Jaundice Genitourinary: No Dysmenorrhea, No DUB, No Dyspareunia, No Dysuria, No Urinary Frequency, No Hematuria, No Urinary Incontinence, No Urgency, No Flank Pain, No Urinary Flow Changes, No Hesitancy Musculoskeletal: No Arthralgias, No Myalgias, No Joint Swelling, No Joint Stiffness, No Back Pain, No Neck Pain, No Injury History Skin: No Skin Lesions, No Pruritis, No Hair Changes, No Breast/Skin Changes, No Nipple Discharge Neuro: No Weakness, No Numbness, No Paresthesias, No Loss of Consciousness, No Syncope, No Dizziness, No Headache, No Coordination Changes, No Recent Falls Psych: No Anxiety/Panic, No Depression, No Insomnia, No Personality Changes, No Delusions, No Rumination, No SI/HI/AH/VH, No Social Issues, No Memory Changes, No Violence/Abuse Hx., No Eating Concerns Heme/Lymph: No Bruising, No Bleeding, No Transfusions History, No Lymphadeno mahnaz Endocrine: No Polyuria, No Polydipsia, No Temperature Intolerance Physical exam (Primary Care) Vital Signs: Last Vital Signs Temp 96.9 F 12/19/24 13:12 Pulse 95 12/19/24 13:12 BP 120/60 12/19/24 13:12 Pulse Ox 96 12/19/24 13:12 Oxygen Delivery Method Room Air 12/19/24 13:12 BMI result Body Mass Index 33.3 Tobacco/Smoking Status: Tobacco use Status Tobacco use date assessed 12/19/24 12/19/24 13:17 Patient Tobacco Use Status Former Tobacco user 12/19/24 13:17 e-Cigarette/Vaping Use Never Used 12/19/24 13:17 Thrive Assessment: Date of Thrive Assessment Date Thrive assessed 08/07/24 12/19/24 13:17 Currently or been in a relationship where the following occur: No concerns reported Const Other: Pertinent findings are in BOLD GENERAL APPEARANCE NAD, activity normal for age, well developed/ well nourished, no cyanosis, pallor, or diaphoresis. EYES lids/conjunctiva normal. EARS/NOSE/THROAT Mucous membranes moist, nares normal, lips/teeth normal uvula midline without oral pharyngeal erythema, exudate or swelling TMs normal bilaterally. No lymphangitis/lymphedema. HEAD/NECK normocephalic atraumatic, no facial trauma, neck is supple. RESPIRATORY respiratory effort normal, speaks in full sentences, no tripod position, no accessory muscle use. Lungs clear to auscultation without rhonchi, wheezes, rales CARDIAC Regular rate and rhythm, no edema. ABDOMINAL Soft, ND/NT. No evidence of fluid wave. No pulsatile masses on exam, rebound tenderness, Arce sign or pain over Mcburney's point. MUSCLES/EXTREMITIES No abnormal range of motion, no swelling. SKIN Warm, pink and dry. No rashes, dermatoses, petechiae or lesions. NEUROLOGICAL Speech is clear and appropriate. Normal level of consciousness. Gait and coordination are normal. 5/5 strength in all extremities. PSYCH Normal mood and affect. Judgement/competence is appropriate Results AMB Hemoglobin A1c AMB Hemoglobin A1c 9.1 % Last Edit by SONIA Hi on 12/19/24 13:35 Results Reviewed Results Reviewed: Laboratory Last Values Hgb A1c (Clinic) 9.1 % (4.0-6.0) H 12/19/24 13:11 Coding Level of Care Code Est Pt Level 4 (70742) Diagnoses Current moderate episode of major depressive disorder, unspecified whether recurrent F32.1 Depression Type: major depressive disorder Major depression recurrence: unspecified whether recurrent Active/Remission status: currently active Major depression episode severity: moderate Back pain M54.9 Fibromyalgia M79.7 Constipation, unspecified constipation type K59.00 Constipation type: unspecified constipation type Gastroesophageal reflux disease without esophagitis K21.9 Esophagitis presence: without esophagitis Time Spent (min) 30 Assessment & Plan Assessment & Plan (1) Depression: Code(s): F32.A - Depression, unspecified Category: Medical Qualifiers: Depression Type: major depressive disorder Major depression recurrence: unspecified whether recurrent Active/Remission status: currently active Major depression episode severity: moderate Qualified Code(s): F32.1 - Major depressive disorder, single episode, moderate Plan: Patient denies SI or HI. Already on Sertraline 100 mg. Patient has been trying to see a therapist but she was unable to as it is hard to find one. Nurse navigator referral to assist with finding a therapist. (2) Back pain: Code(s): M54.9 - Dorsalgia, unspecified Category: Medical Plan: Stopped meloxicam as the it makes the patient feel tired. Switched the patient to NAproxen BID and advised her to take it at night mainly. If symptoms do not improve with pm dose she can take on dose in the morning. (3) Fibromyalgia: Code(s): M79.7 - Fibromyalgia Category: Medical Plan: Advised on lifestyle modifications and dietary chqanges to assist with chronic pain. (4) Constipation: Code(s): K59.00 - Constipation, unspecified Category: Medical Qualifiers: Constipation type: unspecified constipation type Qualified Code(s): K59.00 - Constipation, unspecified Plan: Miralax and Senna PRN. (5) GERD (gastroesophageal reflux disease): Code(s): K21.9 - Gastro-esophageal reflux disease without esophagitis Category: Medical Qualifiers: Esophagitis presence: without esophagitis Qualified Code(s): K21.9 - Gastro-esophageal reflux disease without esophagitis Plan: Advised on lifestyle modifications. Advised patient to monitor potential food triggers and to exclude them from her diet. If symptoms do not improve in one month we will start the patient on PPI. Plan During the visit, I discussed with the patient the management of her chronic pa in, recommending ibuprofen and meloxicam for severe pain days. We also talked about the importance of monitoring her dietary intake. I emphasized the need for stress management techniques to help reduce the frequency of her migraine episodes. Orders: Orders AMB Hemoglobin A1c Today E11.9 - Type 2 diabetes mellitus without complications, Z79.4 - shelter (current) use of insulin Referrals Nurse Navigator Referral F32.A - Depression, unspecified Medications: New naproxen 375 mg PO BID PRN 60 tabs 0RF pain 30 days polyethylene glycol 3350 (Miralax) 17 grams PO DAILY 119 grams 0RF sennosides (senna) 8.6 mg PO DAILY PRN 30 caps 0RF constipation Discontinued meloxicam Discontinued Reason: Duplicate 15 mg PO DAILY 30 tabs 0RF
[2024-12-19 13:12] VITALS: BP 120/60; PULSE 95; TEMP 36.1; O2SAT 96; BMI 33.3
--- OUTSIDE RECORDS SUMMARY | 2024-12-19 15:03 | XMS_ITS | Patient Health Record ---
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 Name Role Phone Alondra MARES, [facility] [place] Primary Care Provider Romina Min Unavailable [phone] Allergies Allergen (clinical drug ingredient) Drug/Non Drug [...] Problem Acquired hammer toe of right foot ([id number] ) Other hammer toe(s) (acquired), right foot (M20.41) Active confirmed Problem Acquired hammer toe of left foot ([id number] ) Other hammer toe(s) (acquired), left foot (M20.42) Active confirmed Problem Polyneuropathy due to diabetes mellitus type I (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) 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) Active confirmed Encounters Encounter Location Date Provider Diagnosis [facility] [address] [place] [address] 01/17/2024 Romina Connell Plan Of Treatment No Information Insurance Providers Payer Name Payer Address Payer Phone Subscriber Number Group Number Insured Name Patient Relationship to Insured Coverage Start Date Coverage End Date [facility] [employer] Claims [address] [place] [address] [id number] Lisseth Chaudhari Self - patient is the insured Medical (General) History Medical History History ICD Code Angina Anxiety Arthritis asthma Back,Hip,and Knee pain Broken bones Mumps Diabetic Depression Headaches/Migraines Hiatal hernia nerve disorder Sinus conditions Stomach ulcer Surgical History Surgery Date(Month/Year) back surgery leg surgery,right Hospitalization History Reason Date(Month/Year)
--- OUTSIDE RECORDS SUMMARY | 2024-12-19 15:04 | XMS_ITS | Data Portability ---
Author Organization [employer], [facility] Address [address] [place] [address] Care Team Providers Care Furniture Removalist Name Role Phone HIM CCA OTHER Assessment Encounter Date Assessment Date Assessment LastModified by Organization Details LastModified Time 02/12/2024 02/12/2024 I provided real -time medical direction via phone for this encounter, and was available for additional phone based assistance as needed. I have reviewed and agree with the Assessment and Plan as documented by the Braid Folder. We discussed the diagnostic uncertainty of home visits and the risk associated with this. Per family who arrived during the visit the patient's speech and gait are altered from baseline thus there is a possibility she might be having a CVA the patient given the opportunity to ask questions. [email or web address] Not available 02/12/2024 14:49:31 06/25/2024 06/25/2024 Ms. [...] Assessment and Plan as documented by the Braid Folder. We discussed the diagnostic uncertainty of home [...] of any new or worsening serious symptoms [email or web address] Not available 07/28/2024 12:22:50 09/02/2024 09/02/2024 service [...] ptimary team [email or web address] Not available 09/02/2024 21:49:56 09/09/2024 09/09/2024 I have reviewed and agree with the assessment and plan as documented by the hydrography teacher. I provided real-time medical direction for this encounter and was immediately available to provide additional phone-based assistance as needed. HPI: 74F presents with chronic neck and back pain. Was seen last week by this service and received toradol with good effect. Today pain is 10/10. Often take Tylenol 1g at 5pm with no improvement Pt was seen by PCP today and given acute pain, was recommended to go to ED. Pt waited in ED for 3 hours but was not seen. No recent trauma or injury. Has had multiple surgeries in the past. O/E: Vitals at her baseline. Normal neck ROM. Diffuse lumbar tenderness, laterally. Exam otherwise unremarkable per the hydrography teacher Impression/Plan: Patient with chronic neck pain. Review of chart reveals the patient has multiple allergies. Tylenol is not working for her. She is followed closely by PCP. Not a frequent NSAID user. No known kidney issues. Will proceed with Toradol 15mg x 1. Pt denies Toradol allergy. Pt advised to follow up closely with PCP. Red flags and return precautions discussed.. We discussed the diagnostic uncertainty of home visits and the risk associated with this. In this case, the patient and I felt this to be an acceptable and reasonable amount of risk given the benefit of avoiding an ED visit. We discussed the need to seek care urgently/emergen tly in the setting of any new or worsening serious symptoms, particularly weakness, dizziness, fever, chills, CP, SOB, worsening diarrhea, nausea, vomiting or any other concerns. [email or web address] Not available 09/09/2024 20:52:23 Plan of Treatment Reminders Order Date Submit Date Provider Last Modified By Organization Details Last Modified Time Details Appointments None recorded. Lab BMP, serum or plasma 2024 025 [facility], [address] [place] [address], [id number] 14:38:13 hemoglobin + hematocrit, blood [address], [id number] 14:38:14 Referral None recorded. Procedures None recorded. Surgeries None recorded. Imaging None recorded. Medication Orders ketorolac 30 mg/mL injection solution 2024 025 [email or web address] [facility], [address] [place], [address], 20:52:25 ketorolac 30 mg/mL injection solution 2024 025 [email or web address] [facility], [address] [place], [address], 19:28:56 ketorolac 30 mg/mL injection solution 2024 025 [email or web address] 84 [facility], [address] [place], [address], 06/02/202 5 12:16:41 ketorolac 30 mg/mL injection solution 2024 025 [facility], [address] [facility], [place], [address], 17:52:49 Patient TargetsNo targets recorded. Patient InstructionsNo [...] Name and Address Organization Details Recorded Time 36856 codeine medicatio n Not available Not available Not available 02/12/2024 2670 RxNorm Not Available [facility] 13:38:29 36105 Demerol medicatio n Not available Not available Not available 02/12/2024 77097 1 Rx[facility] Not Available [facility] 13:38:29 26279 Jardiance medicatio n Not available Not available Not available 02/12/2024 74610 59 RxNorm Not Available [facility] 13:38:29 09480 meloxicam medicatio n Not available Not available Not available 02/12/2024 09725 RxNorm Not Available [facility] - [facility] 13:38:29 69318 Naprosyn medicatio n Not available Not available Not available 02/12/202420291 2 RxNorm Not Available [facility] 13:38:29 36666 paroxetin e Not available Not available Not available Not available 02/12/2024 26682 RxNorm Not Available [facility] 13:38:29 08360 fluoxetin e medicatio n Not available Not available Not available 02/12/2024 4493 RxNorm Not Available [facility] 13:38:29 52941 tramadol medicatio n Not available Not available Not available 02/12/2024 81657 RxNorm Not Available [facility] - production 4 13:38:29 43 amitripty line medicatio n Not available Not available Not available 04/22/2021 704 RxNorm Not Available [facility] - production 4 13:38:29 44 nortripty line medicatio n Not available Not available Not available 04/22/2021 7531 RxNorm Not Available [facility] - production 4 13:38:29 45 latex environme nt,medica tion Not available Not available Not available 04/22/2021 96557 91 Rx[facility] Not Available [facility] 4 03:46:54 8803 morphine medicatio n Not available Not available Not available 12/25/2023 7052 RxNorm Not Available [facility] - production 4 03:46:54 Medications Name Sig Start Date [...] Not Available Not Available Vitals Date Recorded Heart rate Body temperature Respiratory rate Oxygen saturation Oxygen saturation in Arterial blood by Pulse oximetry Systolic And Diastolic Provider Name and Address Organization Details Last Updated DateTime 5 71 /min 97.9 [degF] 18 /min 97 % 97 % 142/86 mm[Hg] Not Available [employer] 5 17:48:57 Date Recorded Oxygen saturation Oxygen saturation in Arterial blood by Pulse oximetry Body height Body weight Heart rate Respiratory rate Body temperature Systolic And Diastolic Provider Name and Address Organization Details Last Updated DateTime 5 100 % 100 % 160.02 cm 61501.6 4 g 87 /min 16 /min 97.9 [degF] 135/84 mm[Hg] Not Available [employer] 5 11:52:31 Date Recorded Oxygen saturation Oxygen saturation in Arterial blood by Pulse oximetry Respiratory rate Body height Body weight Heart rate Body temperature Systolic And Diastolic Provider Name and Address Organization Details Last Updated DateTime 5 99 % 99 % 14 /min 157.48 cm 19610.6 g 99 /min 97.9 [degF] 124/82 mm[Hg] Not Available [facility] - production 5 19:24:51 Date Recorded Respiratory rate Body temperature Oxygen saturation Oxygen saturation in Arterial blood by Pulse oximetry Heart rate Systolic And Diastolic Provider Name and Address Organization Details Last Updated DateTime 5 18 /min 98 [degF] 98 % 98 % 103 /min 124/71 mm[Hg] Not Available [facility] - [facility] 5 20:45:41 Date Recorded Oxygen saturation Oxygen saturation in Arterial blood by Pulse oximetry Respiratory rate Body temperature Heart rate Systolic And Diastolic Provider Name and Address Organization Details Last Updated DateTime 4 98 % 98 % 16 /min 97.5 [degF] 95 /min 146/80 mm[Hg] Not Available [employer] - production 4 14:30:11 Social History None recorded. Functional Status None recorded. Mental Status None recorded. Family History Nothing Reported. Medical History No medical history recorded. Gynecological HistoryNo gynecological history recorded. Obstetrics History GPAL:G 0 P 0 0 0 0 Past Encounters Encounter ID Performer Location Encounter Start Date Encounter Closed Date Diagnosis/Indication Diagnosis SNOMED-CT Code Diagnosis ICD10 Code Diagnosis IMO Codes Diagnosis Note [id number] Opal Wilson MD [facility] - [facility] [address] [place] [id number] 04/22/2021 22:46:42 10/12/2021 11:31:44 Low back pain 286846319 M54.50 Lumbar radiculopathy 128 907944 M54.16 [id number] Angel Sampson MD Main - [facility] [address] [place] [id number] 03/31/2022 13:39:44 04/03/2022 12:15:20 Costal chondritis 17736748 M94.0 Patient presents with exacerbati on of [...] [id number] MD Main - [facility] [address] [place] [id number] 05/31/2022 13:10:05 06/02/2022 10:28:07 Chronic low back pain 636108326 M54.50 Patient has a history of chronic low back pain with lower extremity radiation, worsened in the setting of exertion. Per hydrography teacher she is supposed to be taking ibuprofen and a muscle relaxant , both of which she has not taken for the last three days. She reports symptoms are consistent with her chronic pain, otherwise unchanged. Doubt new process given descriptio n of symptoms and time course. Plan for symptomati c treatment and continued outpatient follow-up. [id number] Kyle Boston MD Main - [facility] [address] [place] [id number] 07/06/2022 13:23:29 07/06/2022 15:26:36 Fibromyalgia 698606258 M79.7 This 72-year-ol d female with fibromyalg ia has had increased pain for the past day due to increased activity. She takes ibuprofen but isn't getting much relief. I ordered Toradol 15 mg IM. I recommende d that she also try adding Tylenol as needed for pain. She will follow-up with her PCP. The patient agreed with this plan. [id number] Evelin Kwok MD Main - [facility] [address] [place] [phone] 0 08/25/2022 18:26:01 08/26/2022 10:05:02 Hyperglycemia 96992379 R73.9 [id number] Opal Wilson MD Main - [facility] [address] [place] [phone] 0 11/29/2022 11:26:46 12/05/2022 00:03:06 Chronic back pain 058150095 M54.9 History of DJD/ fibromyalg ia with acute flare- advised close f/u with pcp annel- advised warm compresses gently qid- denies hx ckd or PUD-(creat inine 0.7 on 08/25/2022 )has had relief with ketorolac in the past-has ibuprofen and Tylenol at home. Advised no ibuprofen for 6 hours after the ketorolac. [place] [id number] Yun Smith MD Main - [facility] [address] [place] [id number] 01/23/2023 10:14:24 09/12/2024 19:30:08 Osteoarthritis [id number] M19.90 ketorolac [id number] [facility] [address] [place] [id number] 03/27/2023 13:00:48 03/27/2023 21:37:01 Chronic pain syndrome [id number] G89.4 This 73-year-ol d female has chronic pain. She recently moved and her pain has increased. She takes ibuprofen but today it hasn't been effective. I ordered Toradol 30 mg IM. She will follow-up with her PCP. The patient agreed with this plan. [id number] Opal [facility] [address] [place] [id number] 02/12/2024 14:30:07 02/12/2024 22:14:46 Slurred speech 228294764 R47.81 With gait disturbanc e/possible CVA advised the need for advanced imaging and workup in the emergency room. Patient agreed with the plan as did family. EMS activated and patient sent to [facility]. Report given by myself to ED clinic charge nurse [id number] ANGELIA LAWRENCE MD Main - [address] [address] 06/25/2024 17:48:55 06/25/2024 21:34:30 Bilateral sciatica [id number] 2882942 M54.31 M54.32 [id number] Malik Broussard MD [facility] [address] [place], [place] [address] 07/28/2024 11:52:28 07/28/2024 14:23:14 Chronic pain 90977484 M54.2 M54.9 G89.29 [id number] Jeffrey Duarte MD Main-[facility] [address] [id number] 09/02/2024 19:24:48 09/03/2024 21:11:50 Chronic neck pain [id number] 107 M54.2 G89.29 [id number] Teresa Eller MD Main-[facility] [address] [id number] 09/09/2024 20:45:39 09/09/2024 23:30:58 Chronic neck pain 7649432193 107 M54.2 G89.29 7105055 Health Concerns Section Related Observation LastModified by Organization Detai ls LastModified Time None Recorded Concern Status LastModified by Organization Details LastModified Time None Recorded Advance Directives Directive None Recorded Payers Insurance Date Sequence Insurance Name Policy Number Policy Lewis Covered Member ID Lewis Member ID Guarantor Name 08/25/2022 1 [facility] - DOS PRIOR TO 2022 - DUAL ELIGIBLE (MEDICARE REPLACEMENT/ADV ANTAGE - HMO) Lisseth Fara [id number] Lisseth Veliz Fara 09/09/2024 1 [facility] - DOS ON OR AFTER 2022 - DUAL ELIGIBLE - [employer] AND ONE CARE (MEDICARE REPLACEMENT/ADV ANTAGE - HMO) Lisseth Fara [id number] Lisseth Veliz Fara Notes Date Note Type Note Provider Name and Address Organization Details Recorded Time 02/12/2024 text/html ROS as noted in the [facility] CRC Nurse Triage Notes (Moises Escoto - RN): [...] PMH: Coronary Artery Disease, Hypertension, COPD/Asthma Comments: Retail Beauty Specialist verified the Pt.'s name//address and phone number. Education provided on the response time and the Pt. was advised to monitor reported s/s and seek emergency treatment if needed. Pt reports feeling unwell - muscle spasms with dizziness - Right eye and lip heaviness - Off balance. Vision changes - Headache 5/10 - Denies N/V - Denies chest pain - S/S started the other day, Denies taking any over the counter medication. ER treatment declined - Concerned expressed. ................... ................... ................... ................... ................... ................... ................... ........ Braid Folder Note From Piotr Khan: This 73-year-old female [...] Patient is agreeable for ambulance transport to [facility] emergency department. 911 was initiated and verbal SBAR was given to Marianne CARTER. The patient was given the opportunity to ask questions. ................... ................... ................... ................... ................... ................... ................... ........ [facility] Consulted: Opal Wilson ................... ................... ................... ................... ................... ................... ................... ........ Disposition: Fulfilled Opal Wilson MD [address] [facility],[address], [place], [address], [employer] 02/12/2024 20:28:40 06/25/2024 text/html ROS as noted in the [facility] CRC Nurse Triage Notes (Eliane Perry): Reason For Request: fibromyalgia flare up, pt [...] 06/25/2024 - 16:20 Allergies Reviewed at 06/25/2024 - 16:20 Comments: 74 y.o female complains of [...] ................... ................... ................... ................... ................... ................... ........ Braid Folder Note From Gabriele Lund: Encountered patient seated [...] non-distended. Extremities, free of trauma and edema. [facility] contacted: orders for 30 mg of IM Toradol administered. Patient encouraged to monitor for priority symptoms, such as chest pain or shortness of breath, and additionally to attempt to follow up with primary care in order to receive further treatment for her chronic ailment. Patient verbalizes understanding of the plan, expresses gratitude, and states she is comfortable with remaining home at this time. [facility] Medication Orders: ketorolac 30 mg/mL injection solution: Administered ................... ................... ................... ................... ................... ................... ................... ........ [facility] Consulted: Angelia Lawrence ................... ................... ................... ................... ................... ................... ................... ........ Disposition: Tomi ANGELIA LAWRENCE MD [address] [place] [address],[address], [place], [address], [employer] 06/25/2024 21:30:51 07/28/2024 text/html ROS as noted in the HPI HPI: Lisseth called into [facility] stating she [...] Fibromyalgia, Chronic Back Pain PMH Reviewed at 07/28/2024 Allergies Reviewed at 07/28/2024:30 Pain Assessment: Level 10 out of 10 Comments: HPI reviewed Braid Folder Organization Information for Vinayak Aggarwal Legal Name: [employer]. Address: [address] [place] [address], Client Coordinator: Adan Tsang MD [facility] No.: [id number] Braid Folder POC Test Results from Vinayak Aggarwal - RAUL iSTA Chem8+ (12:12:14) Na: 141 mEq/L K: 4.1 mEq/L Cl: 106 mEq/L iCa: 1.14 mmol/L TCO2: 24 mmol/L Glu: 73 mg/dL BUN: 14 mg/dL Crea: 0.7 mg/dL Hct: 44 % Hb: 15.0 g/dL A mmol/L Cartridge Number: [id number] ................... ................... ................... ................... ................... ................... ................... ........ Braid Folder Note From Vinayak Aggarwal: [facility] visit for female pt complaining of pain [...] is consistent with chronic pain. Consulted with [facility] who ordered blood draw for creatinine and hemoglobin. Blood drawn and results uploaded and administered 30 mg IM toradol per Dr. Broussard. [facility] Lab Orders: BMP, serum or plasma: Performed hemoglobin + hematocrit, blood: Performed [facility] Medication Orders: ketorolac 30 mg/mL injection solution: Administered ................... ................... ................... ................... ................... ................... ................... ........ [facility] Consulted: Malik Broussard ................... ................... ................... ................... ................... ................... ................... ........ Disposition: Fulfilled Malik Broussard MD [address] [place] [address],[address] [facility], [place], [address], [employer] 07/28/2024 14:11:49 09/02/2024 text/html CRC Nurse Triage Notes (Francesca Rodriguez): Reason For Request: Patient has pain All over . Mostly back pain. Chief Complaints: Back Pain, Extremity Pain PMH: Coronary Artery Disease, Hypertension, COPD/Asthma, Fibromyalgia, Chronic Back Pain PMH Reviewed at 09/02/2024 - 12:41 Allergies Reviewed at 09/02/2024 - 12:41 Pain Assessment: Level 10 out of [...] ................... ................... ................... ................... ................... ................... ........ Braid Folder Note From Danny Dixon: Patient alert and oriented complains of pain a ll over . Patient reports pain in head [...] to follow up with primary care physician. [facility] Medication Orders: ketorolac 30 mg/mL injection solution: Administered ................... ................... ................... ................... ................... ................... ................... ........ [facility] Consulted: Jeffrey Duarte ................... ................... ................... ................... ................... ................... ................... ........ Disposition: Fulfilled Jeffrey Duarte MD [address] [place] [address],[address], [place], [address], [employer] 09/02/2024 21:50:12 09/09/2024 text/html CRC Nurse Triage Notes (Francesca Rodriguez): Reason For Request: back pain Chief Complaints: Back Pain PMH: Coronary Artery Disease, Hypertension, COPD/Asthma, Fibromyalgia, Chronic Back Pain PMH Reviewed at 09/09/2024 - 16:55 Allergies Reviewed at 09/09/2024 - 16:55 Comments: 74 y.o female complains of Back Pain PT having back pain from neck down . She has 10/10 back pain. Pt is not on blood thinners. Pt was in the ER and was there for 12 hours and left. She has chronic back pain and a slipped disc. She does not take any pain meds. Pt does not take any blood thinners I provided information on the mobile health provider response time and advised the patient and/or caregiver to monitor reported signs and symptoms. I discussed the warning signs of when to seek emergency care. ................... ................... ................... ................... ................... ................... ................... ........ Braid Folder Note From Candace Russell: Sent to a call for a pt complaining of back pain. [facility] arrives on scene, pt is alert and oriented, airway is patent. Pt complains of chronic neck and back pain. Pt complains of worsening atraumatic pain. Pt states she has had multiple back surgeries and she has some slipped discs in her neck and back. Pt states she had an MRI yesterday, was evaluated by PCP today and sent to ED due to increased pain. Pt states she was in ED today for a few hours, had blood drawn, but left AMA due to pt feeling like she wasn't receiving appropriate care. Pt states she took Tylenol 1gm PO at 5pm with no relief. Pt has been using a camphor/menthol based cream as well. Pt complains of 10/10 pain. Pt doesn't use other pain medication due to allergies. Pt states [facility] visited recently and gave a Toradol injection with some relief. BP:124/71, P:103, RR:18, SpO2:98% RA, T:98.0; Head: unremarkable; Lung sounds: clear bilaterally; Abdomen: soft, non-tender, no distention; Back: tenderness bilaterally and around spine in lumbar area. Extremities: unremarkable; Skin: pink, warm, dry; [facility] consulted and orders Toradol 15mg IM. Pt is advised to follow up with PCP tomorrow. 5 emt intermediate rights verified; Toradol 15mg IM administered; Red flags discussed. Pt has no further questions. [facility] Medication Orders: ketorolac 30 mg/mL injection solution: Administered ................... ................... ................... ................... ................... ................... ................... ........ [facility] Consulted: Teresa Eller ................... ................... ................... ................... ................... ................... ................... ........ Disposition: Fulfilled Teresa Eller MD [address] [facility],[address] [facility], [place], [address], [facility] 09/09/2024 21:57:05 OBGyn Episode No OBEpisode recorded.
--- OUTSIDE RECORDS SUMMARY | 2024-12-19 15:04 | XMS_ITS | Continuity of Care Document ---
Author Name Vadim Benitez Address [address] [place] [id number] Organization Unknown Address [address] [place] [address] Medications No known medications Problems No known problems
--- OUTSIDE RECORDS SUMMARY | 2024-12-19 15:04 | XMS_ITS | Encounter Summary ---
Author Organization [facility] Address [address] [place] [address] Encounters * CPT with Vadim Benitez at [facility] on 2024-09-10 { reasonForRequest : back pain , patientReports : , de nies :[], chiefComplaints : Back Pain , pmh : Coronary Artery Disease, Hypertension, COPD/Asthma, Fibromyalgia, Chronic Back Pain , allergies :&q uot;Latex, Morphine, Nortriptyline, Amitriptyline, Codeine, Demerol, Jardiance, Meloxicam, Naprosyn, Paroxetine, Fluoxetine, Tramadol , otherAllergies :null, painAssessment :& quot; , visitOutcome : , additionalComments : 74 y.o female complains of Back Pain\n\nPT having back pain from neck down . She has 10/10 back pain. \nPt is not on blood thinners. \nPt was in the ER and was there for 12 hours and left. \nShe has chronic back pain and a slipped disc. \nShe does not take any pain meds. \n\nPt does not take any blood thinners \nI provided information on the mobile health provider response time and advised the patient and/or caregiver to monitor reported signs and symptoms. I discussed the warning signs of when to seek emergency care. } Sent to a call for a pt [...] unremarkable; Lung sounds: clear bilaterally; Abdomen: soft, non- tender, no distention; Back: tenderness bilaterally and aroundspine in lumbar area. Extremities: unremarkable; Skin: pink, warm, dry; C consulted and orders Toradol 15mg IM. Pt is advised to follow up with PCP tomorrow. 5 medical reviewer rights verified; Toradol 15mg IM administered; Red flags discussed. Pt has no further questions. IV_(FLUIDS_AND/OR_MEDICATION), MEDICATION_IM, ORAL_MEDICATION, EKG Written by Vadim Benitez on 2024-09-10
--- OUTSIDE RECORDS SUMMARY | 2024-12-19 15:04 | XMS_ITS | Encounter Summary ---
Author Organization [facility] Address [address] [place] [address] Encounters * CPT with Vadim Benitez at [facility] on 2024-09-02 { reasonForRequest : Patient has pain \ All over\ . Mostly back pain. &quot ;, patientReports : , denies :[], chiefComplaints : Back Pain, Extremity Pain , pmh : Coronary Artery Disease, Hypertension, COPD/Asthma, Fibromyalgia, Chronic Back Pain , allergies : Latex, Morphine, Nortriptyline, Amitriptyline, Codeine, Demerol, Jardiance, Meloxicam, Naprosyn, Paroxetine, Fluoxetine, Tramadol", otherAllergies :null, painAssessment : Level 10 out of 10 ,&quo t;visitOutcome : , additionalComments : 74 y.o female complains of Back Pain, Extremity Pain\n\nPt calling for all over pain. the area is mainly her back, but has head and neck pain. She sánchez shave fibromyalgia. \nShe denies any falls or injuries.\nShe has had pain fora few weeks but has been increasing. \n10/10 pain level\nShe does not take any pain medication , but has been taking aleeve in the past few days but did not help. \nShe does not have any kidney disease and is not on blood thinners \nI provided information on the mobile health provider response timeand advised the patient and/or caregiver to monitor reported signs and symptoms. I discussed the warning signs of when to seek emergency care. } Patient alert and oriented complains of pain ???all over???. Patient reports pain in head neck, lower [...] to follow up with primary care physician. IV_(FLUIDS_AND/OR_MEDICATION), MEDICATION_IM, ORAL_MEDICATION, EKG, WOUND_CARE, ORTHOSTATIC_VITAL_SIGNS Written by Vadim Benitez on 2024-09-02
--- OUTSIDE RECORDS SUMMARY | 2024-12-19 15:04 | XMS_ITS | Continuity of Care Document ---
Author Name [facility], Medical Address [address] [place] [id number] Organization Unknown Address [address] [place] [address] Medications No known medications Problems No known problems
== END 2024-12-19 13:59 | disposition home or self-care (01) ==
LOC: HO.HMCH 13:02
PROVIDERS: Visit Provider Internal Medicine
DX: F32.1 Major depressive disorder, single episode, moderate (principal); M54.9 Dorsalgia, unspecified; M79.7 Fibromyalgia; K59.00 Constipation, unspecified; K21.9 Gastro-esophageal reflux disease without esophagitis; E11.9 Type 2 diabetes mellitus without complications; Z79.4 Long term (current) use of insulin

== ENCOUNTER → 2024-12-19 13:01 | Outpatient (BNVA) | payer OTHER, SELFPAY | PROVIDERS: Visit Provider Internal Medicine | DX: E11.9 Type 2 diabetes mellitus without complications (principal); G89.29 Other chronic pain; M54.9 Dorsalgia, unspecified; G43.909 Migraine, unspecified, not intractable, without status migrainosus; K21.9 Gastro-esophageal reflux disease without esophagitis; R10.9 Unspecified abdominal pain; F32.1 Major depressive disorder, single episode, moderate; M79.7 Fibromyalgia; K59.00 Constipation, unspecified | CPT/HCPCS: 83036; 99212 ==

== ENCOUNTER 2024-12-24 08:48 | Outpatient (AMB) | payer OTHER, SELFPAY ==
--- OUTSIDE RECORDS SUMMARY | 2023-07-26 10:00 | XMS_ITS ---
Author Organization [facility] Address [address] [place] [address] Care Team Providers Care Maple Sugar Maker Name Role Phone Alondra MARES, Fermín Primary Care Provider Romina Min Unavailable [phone] Encounters Encounter Location Date Provider Diagnosis [address] [address] 07/26/2023 Romina Connell Plan Of Treatment No Information Progress Notes * Lisseth CHAUDHARI AnnDOB:[birth year] (74 yo F)Acc No.[id number]:07/26/2023 Progress Note Patient: Alea THOMAS Lisseth eLdesma Provider: Flor Connell DPM :1950 A ge:73 Y S ex:Female Date:07/26/2023 Address:[address] [place], [place] [address]z[address] [place] [address], [place], [place] Pcp:Fermín Cantu MD Subjective: * Chief [...] 0 07/26/2023 Generated for Printi ng/Faxing/eTransmitting on: 09:37 AM EDT
--- OUTSIDE RECORDS SUMMARY | 2023-09-10 10:30 | XMS_ITS ---
Author Organization [facility] Address [address] [place] [address] Care Team Providers Care Pipe Inspector Name Role Phone Alondra MARES, Fermín Primary Care Provider Romina Min Unavailable [phone] REASON FOR VISIT seen sooner Encounters Encounter Location Date Provider Diagnosis [address] [address] 09/10/2023 Romina Connell Plan Of Treatment No Information Progress Notes * Lisseth CHAUDHARI AnnDOB:[birth year] (74 yo F)Acc No.[id number]:09/10/2023 Progress Note Patient: Lisseth CAREY Provider: Flor Connell DPM :1950 A ge:73 Y S ex:Female Date:09/10/2023 Address:[address], [place] Pcp:Fermín Cantu MD Subjective: * Chief [...] DPM Date: 0 09/10/2023 Generated for Printi ng/Faciarrag/eTransmitting on: 1 09:36 AM EDT
--- OUTSIDE RECORDS SUMMARY | 2024-01-17 09:30 | XMS_ITS ---
Author Organization [facility] Address [address] [place] [address] Care Team Providers Care Director Of Financial Planning Name Role Phone Alondra MARES, Fermín Primary Care Provider Romina Min Unavailable [phone] Encounters Encounter Location Date Provider Diagnosis [address] [address] 01/17/2024 Romina Connell Plan Of Treatment No Information Progress Notes * Lisseth CHAUDHARI AnnDOB:[birth year] (74 yo F)Acc No.[id number]:01/17/2024 Progress Note Patient: Alea THOMAS Lisseth Ledesma Provider: Flor Connell DPM :1950 A ge:73 Y S ex:Female Date:01/17/2024 Address:[address] [place], [place] [address] [place] [address], [address], [place], [place] Pcp:Fermín Cantu MD Subjective: * Chief [...] Connell DPM Date: 03/18/2023 Generated for Printi ng/Faxing/eTransmitting on: 09:36 AM EDT
[2024-12-24 08:50] VITALS: BP 120/70; PULSE 93; TEMP 36.2; O2SAT 98; BMI 32.5
--- NOTE | 2024-12-24 08:50 | A.OFFPC_ITS ---
Vital Signs 12/24/24 08:50 Height 5 ft 1.22 in Weight 173 lb BMI 32.5 BP 120/70 Blood Pressure Location Lt brachial Position Sitting Pulse 93 Pulse Source Pulse Oximeter Temp 97.1 F Temp Source Temporal Artery Scan Pulse Oximetry (%) 98 Oxygen Delivery Method Room Air Intake Visit Reasons: Follow up Intake Note: Patient is here to follow up on Back pain. Vehicle Service Agent Required: No Human Capital Manager: Not Required per policy Accompanied by: Self / Same As Patient Allergies adhesive tape Allergy (Intermediate, Verified 12/24/24 08:57) Hives amitriptyline Allergy (Intermediate, Verified 12/24/24 08:57) Hives codeine Allergy (Intermediate, Verified 12/24/24 08:57) Hives nortriptyline Allergy (Intermediate, Verified 12/24/24 08:57) Hives Medication List - Last Reconciled 12/24/24 by Annalisa Jackson PA-C [Adult pull ups As directed] aspirin 81 mg PO DAILY atenolol 150 mg (3 x 50 mg) PO DAILY 30 days blood-glucose sensor (Wazoo SportsStyle Lilian 3 Plus Sensor device) As directed blood-glucose,ornamental iron worker helper,cont (FreeStyle Lilian 3 [place]) As directed [electric scooter cushion As directed] fzlgskftyvp-glesfeeid-loknnmwq 200-62.5-25 mcg (Trelegy Ellipta) 1 inh inhalation DAILY glipizide ER 2.5 mg PO DAILY glucagon 3 mg/actuation (Baqsimi) mg intranasal hydrochlorothiazide 12.5 mg PO DAILY insulin glargine (Lantus Solostar U-100 Insulin) 32 units subcut QPM levothyroxine 112 mcg PO DAILY lisinopril 10 mg PO DAILY naproxen 375 mg PO BID PRN 30 days nitroglycerin 0.4 mg sublingual Q5M PRN polyethylene glycol 3350 (Miralax) 17 grams PO DAILY pravastatin 80 mg PO BEDTIME sertraline 100 mg PO DAILY tirzepatide (Mounjaro) 10 mg subcut QWEEK Tobacco use date assessed: 12/24/24 Fall risk assessment: No Falls in past year Last assessed Fall Risk: 12/24/24 Dental Screening Dental Screen Date: 12/24/24 Did you have a dental visit in the last 12 months?: Yes Did you have a dental problem in the last 6 months where you did not have access to dental care?: No Was dental information given to patient?: Patient has dentist HPI Follow up HPI Details 74-year-old female with past medical his tory of failed back syndrome, hypertension, COPD, anxiety, depression, fibromyalgia, neuropathy, insulin- dependent type 2 diabetes, hypercholesterolemia, coronary artery disease last seen 11/2024 coming in for follow up. In review of the notes, patient was seen by endocrinology 11/2024 A1c was 9% at that time with goal of less than 8% concern the Lyumjev is not being taken appropriately and bolus insulin was changed to glipizide 2.5 mg daily with continued use of Mounjaro and Lantus. She is also recently seen by Dr. Lundberg in the office started on naproxen b.i.d. for back pain. Presenting for follow-up on multiple chronic conditions and new complaints. She reports chronic back pain that has persisted for a long time, causing significant morning stiffness and difficulty with ambulation. She was seen by a industrial spray painter four months ago, who ordered an MRI, but she has not yet followed up. The patient also complains of dizziness and gait instability, describing a sensation of walking sideways. A prior CT scan of the brain was normal, and she missed a previous neurology appointment. Psychiatrically, she reports increased anxiety, depression, feelings of loneliness, and is crying a lot, which she relates to getting older and the recent of her brother. She reports being on sertraline 200 mg previously and requests an increase in her current dose. She has not seen a psychiatrist or counselor. [facility] Medical History TIA (transient ischemic attack) Nephrolithiasis Surgical History Hx laparoscopic cholecystectomy H/O tubal ligation H/O partial thyroidectomy H/O Spinal surgery Social History Housing: Apartment Alcohol intake: current Alcohol intake frequency: holidays/special occasions only Patient Tobacco Use Status: Never used Tobacco Tobacco use type: Cigarette e-Cigarette/Vaping Use: Never Used Second Hand Smoke Exposure: No service: No Current occupational status: retired and disabled Cognitive needs: Yes (, scooter, walker) Hearing needs: No Vision needs: Yes (Glasses) Questionnaire PHQ-9 Over the last 2 weeks, how often have you been bothered by any of the following problems? 1. Little interest or pleasure in doing things: several days 2. Feeling down, depressed, or hopeless: several days 3. Trouble falling or staying asleep, or sleeping too much: several days 4. Feeling tired or having little energy: more than half the days 5. Poor appetite or overeating: several days 6. Feeling bad about yourself - or that you are a failure or have let yourself or your family down: several days 7. Trouble concentrating on things, such as reading the newspaper or watching television: several days 8. Moving or speaking so slowly that other people could have noticed. Or the opposite - being so fidgety or restless that you have been moving around a lot more than usual: several days 9. Thoughts that you would be better off or of hurting yourself in some way: not at all Total score: 9 Depression Screening Interpretation: Positive Depression Screening Follow-up: Existing condition and In treatment Depression Screening Done: Yes Source: Developed by Drs. Umang Silva, Elizabeth Mar, Ronak Lindsey and colleagues, with an educational malia from [employer]. Thrive Questionnaire Date Thrive assessed: 12/24/24 I am a: Patient What is your living situation today?: I have a steady place to live Within the past 12 months, did the food you bought not last and you didn't have the money to get more?: Never true Within the past 12 months, did you worry whether your food would run out before you got money to buy more?: Never true Do you have trouble paying for medicines?: No Do you have trouble getting transportation to medical appointments?: No Do you have trouble paying your heating and electricity bill?: No Do you have trouble taking care of your child, family member or friend?: Yes Do you have trouble with day-to-day activities such as bathing, preparing meals, shopping, managing finances, etc.?: Yes Are you currently unemployed and looking for a job?: Yes Are you interested in more education?: No Please select the resources that you would like help with: None Currently or been in a relationship where the following occur: No concerns reported THRIVE Score: 0 AUDIT C Alcohol Use Questionnaire (AUDIT-C) 1. How often do you have a drink containing alcohol?: Monthly or less 2. How many drinks containing alcohol do you have on a typical day when you are drinking?: 1 or 2 3. How often do you have six or more drinks on one occasion?: Less than monthly Total Score: 2 ALVERTO-7 AMB Questionnaire ALVERTO-7 Date ALVERTO - 7 assessed: 12/24/24 Feeling nervous, anxious, or on edge: 3 = Nearly every day Not being able to stop or control worryin = Several days Worrying too much about different things: 1 = Several days Trouble relaxin = More than half the days Being so restless that it is hard to sit still: 2 = More than half the days Becoming easily annoyed or irritable: 2 = More than half the days Feeling afraid as if something awful might happen: 1 = Several days Total ALVERTO-7 score (0-4 normal; 5-9 mild; 10-14 moderate; 15-21 severe): 12 Source: Developed by Drs. Umang Silva, Elizabeth Mar, oRnak Lindsey and colleagues, with an educational malia from [employer]. Review of Systems Const Denies body aches, Denies chills, Denies fever(s), Denies headache(s) and Denies poor appetite Eyes Reports no additional complaints ENT Denies dysphagia, Denies dizziness, Denies headache(s), Reports hearing loss and Denies odynophagia Card Denies chest pain, Denies syncope, Denies edema, Denies irregular heart rhythm, Denies lightheadedness and Denies dyspnea Resp Denies dyspnea GI Denies abdominal pain, Denies dysphagia, Denies nausea, Denies odynophagia and Denies vomiting Reports no additional complaints Musc Reports abnormal gait and Reports back pain Skin/Breast Reports system reviewed and no additional complaints, except as documented Neuro Reports abnormal gait, Denies dizziness, Denies syncope and Denies headache(s) Psych Reports no additional complaints Physical exam (Primary Care) Vital Signs: Last Vital Signs Temp 97.1 F 12/24/24 08:50 Pulse 93 12/24/24 08:50 BP 120/70 12/24/24 08:50 Pulse Ox 98 12/24/24 08:50 Oxygen Delivery Method Room Air 12/24/24 08:50 BMI result Body Mass Index 32.5 Tobacco/Smoking Status: Tobacco use Status Tobacco use date assessed 12/24/24 12/24/24 08:53 Patient Tobacco Use Status Never used Tobacco 12/24/24 09:02 Tobacco use type Cigarette 12/24/24 08:53 e-Cigarette/Vaping Use Never Used 12/24/24 08:53 PHQ-9: PHQ-9 Score PHQ-9: Total score 9 12/24/24 09:06 Depression Screening Interpretation: Positive Depression Screening Follow-up: Existing condition and In treatment Thrive Assessment: Date of Thrive Assessment Date Thrive assessed 12/24/24 12/24/24 08:53 Currently or been in a relationship where the following occur: No concerns reported Const General: cooperative, healthy appearing, comfortable and no acute distress Orientation/consciousness: patient oriented x3 HENMT Head: Yes normocephalic Ears: hearing grossly normal bilaterally General nose exam: Normal external nose present Eyes General: appearance normal, both eyes and all related structures Conjunctivae: conjunctivae normal Neck Neck: Yes full ROM and Yes no lymphadenopathy Resp Effort & Inspection: normal respiratory effort Auscultation: clear to auscultation bilaterally, no crackles, no rales, no rhonchi and no wheezes Cardio Rate: regular rate Rhythm: regular rhythm Skin General skin exam: no rashes or lesions noted Neuro General: patient oriented x3 Gait exam (Neuro): Normal gait present Extrem General: Yes normal to inspection, Yes full ROM and No edema Psych Affect: normal affect Attitude: cooperative Insight: Good insight present (Psych) Judgement: Good judgement present (Psych) Coding Level of Care Code Est Pt Level 4 (44671) Diagnoses Hypertension I10 CAD (coronary artery disease) I25.10 Insulin dependent type 2 diabetes mellitus E11.9; Z79.4 Failed back surgical syndrome M96.1 Current moderate episode of major depressive disorder, unspecified whether recurrent F32.1 Active/Remission status: currently active Depression Type: major depressive disorder Major depression episode severity: moderate Major depression recurrence: unspecified whether recurrent Anxiety F41.9 Hypercholesterolemia E78.00 Decreased hearing H91.90 Memory impairment R41.3 Assessment & Plan Assessment & Plan (1) Hypertension: Code(s): I10 - Essential (primary) hypertension Category: Medical Plan: Continue on current blood pressure medication. Avoid salt intake and encourage healthy diet and regular exercise. (2) CAD (coronary artery disease): Comment: PREMA to circumflex and has 50% lad 2012 Code(s): I25.10 - Atherosclerotic heart disease of [place] coronary artery without angina pectoris Category: Medical Plan: LDL goal less than 70, blood pressure goal less than 130/90 at goal today, A1c goal less than 8% and currently following with [facility] endocrinology. 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 Although fruits are generally healthy they should be eaten in moderation as they are still high in sugar. Hemoglobin A1c goal of less than 8%. She is currently following with [facility] endocrinology and is on Lantus, glipizide daily, Mounjaro. 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 She is declining any muscle relaxers or any medications that could potentially cause drowsiness. She was previously following with pain management and has not yet had a follow up and she was provided the number to schedule with our office. I will also reach out as well (5) Depression: Code(s): F32.A - Depression, unspecified Category: Medical Qualifiers: Active/Remission status: currently active Depression Type: major depressive disorder Major depression episode severity: moderate Major depression recurrence: unspecified whether recurrent Qualified Code(s): F32.1 - Major depressive disorder, single episode, moderate Plan: For depression and anxiety she feels the sertraline 100 mg is not working for her. Plan to increase to 150 mg at this time and continue to taper up to 200 as tolerated. She has not yet heard from my counselor and I will discuss with community navigation today. (6) Anxiety: Code(s): F41.9 - Anxiety disorder, unspecified Category: Medical Plan: See above plan (7) Hypercholesterolemia: Code(s): E78.00 - Pure hypercholesterolemia, unspecified Category: Medical Plan: Avoid foods that are high in cholesterol such as red meat, fried foods, eggs and baked goods. Triglyceride goal of less than 150 and LDL goal of less than 70. Continue on pravastatin and plan for repeat blood work (8) Decreased hearing: Code(s): H91.90 - Unspecified hearing loss, unspecified ear Category: Medical Plan: Requesting a hearing test which was placed today. (9) Memory impairment: Code(s): R41.3 - Other amnesia Category: Medical Plan: For memory impairment and gait issues she did have a recent negative CAT scan of the head. We are currently awaiting Neurology appointment as she did miss her most recent appointment due to scheduling issues. She will reach out to the office to reschedule and I will send a message to their office as well. Plan This note was constructed using voice recognition software. While every effort has been made to ensure accuracy and medical research tech, still areas may have been included sometimes these areas may affect the content or meeting of the given symptoms. Total time spent caring for the patient today was 20 minutes. This includes time spent before the visit reviewing the chart, time spent during the visit, and time spent after the visit and documentation. Patient was informed and verbally consented to the use of an ambient scribe for clinic note documentation during this visit. Orders: Orders Lipid Panel Today E78.00 - Pure hypercholesterolemia, unspecified Comprehensive Met. Panel Today I25.10 - Atherosclerotic heart disease of [place] coronary artery without angina pectoris TSH reflex Free T4 Today E03.9 - Hypothyroidism, unspecified Referrals Speech and Hearing Referral H91.90 - Unspecified hearing loss, unspecified ear Medications: New sertraline with 100mg for combined dose of 150mg 50 mg PO DAILY 30 tabs 0RF celecoxib (Celebrex) 100 mg PO BID 30 caps 0RF [Adult Pullups Size L] As directed 120 ea 6RF R32 - Unspecified urinary incontinence Changed From sertraline 100 mg PO DAILY 30 tabs 0RF To sertraline with 50mg for combined dose of 150mg 100 mg PO DAILY 90 tabs 0RF Discontinued naproxen Discontinued Reason: Patient no longer taking 375 mg PO BID 30 days PRN 60 tabs 0RF pain sennosides (senna) Discontinued Reason: Patient no longer taking 8.6 mg PO DAILY PRN 30 caps 0RF constipation
--- OUTSIDE RECORDS SUMMARY | 2024-12-24 09:36 | XMS_ITS | Patient Health Record ---
Author Organization [facility] Address [address] [place] [address] Care Team Providers Care Dish Maker Name Role Phone Alondra MARES, [facility] Primary Care Provider Romina Min Unavailable [phone] Allergies Allergen (clinical drug ingredient) Drug/Non Drug [...] Problem Acquired hammer toe of right foot ([id number] ) Other hammer toe(s) (acquired), right foot (M20.41) Active confirmed Problem Acquired hammer toe of left foot ([id number] ) Other hammer toe(s) (acquired), left foot (M20.42) Active confirmed Problem Polyneuropathy due to diabetes mellitus type I ([id number]) 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) Active confirmed Encounters Encounter Location Date Provider Diagnosis [facility] [address] [place] [address] 01/17/2024 Romina Connell Plan Of Treatment No Information Insurance Providers Payer Name Payer Address Payer Phone Subscriber Number Group Number Insured Name Patient Relationship to Insured Coverage Start Date Coverage End Date [facility] [employer] Claims [address] [place] [address] [id number] Lisseth Chaudhari Self - patient is the insured Medical (General) History Medical History History ICD Code Angina Anxiety Arthritis asthma Back,Hip,and Knee pain Broken bones Mumps Diabetic Depression Headaches/Migraines Hiatal hernia nerve disorder Sinus conditions Stomach ulcer Surgical History Surgery Date(Month/Year) back surgery leg surgery,right Hospitalization History Reason Date(Month/Year)
== END 2024-12-24 09:50 | disposition home or self-care (01) ==
LOC: HO.HMCH 08:48
DX: E11.9 Type 2 diabetes mellitus without complications (principal); Z79.4 Long term (current) use of insulin; F32.1 Major depressive disorder, single episode, moderate; I10 Essential (primary) hypertension; I25.10 Atherosclerotic heart disease of native coronary artery without angina pectoris; M96.1 Postlaminectomy syndrome, not elsewhere classified; F41.9 Anxiety disorder, unspecified; E78.00 Pure hypercholesterolemia, unspecified; R41.3 Other amnesia; H91.90 Unspecified hearing loss, unspecified ear

== ENCOUNTER → 2024-12-24 08:48 | Outpatient (BNVA) | payer OTHER, SELFPAY | DX: I10 Essential (primary) hypertension (principal); R42 Dizziness and giddiness; M54.9 Dorsalgia, unspecified; R26.89 Other abnormalities of gait and mobility; F41.9 Anxiety disorder, unspecified; I25.10 Atherosclerotic heart disease of native coronary artery without angina pectoris; E11.9 Type 2 diabetes mellitus without complications; F32.1 Major depressive disorder, single episode, moderate; E78.00 Pure hypercholesterolemia, unspecified; H91.90 Unspecified hearing loss, unspecified ear; R41.3 Other amnesia; R32 Unspecified urinary incontinence; G89.29 Other chronic pain; Z79.4 Long term (current) use of insulin | CPT/HCPCS: 96127; 99212 ==

== ENCOUNTER 2025-01-09 11:24 | Outpatient (AMB) | payer OTHER, SELFPAY ==
--- OUTSIDE RECORDS SUMMARY | 2023-07-26 09:00 | XMS_ITS ---
Author Organization [facility] Address [address] [place] [address] Care Team Providers Care Carpentry Supervisor Name Role Phone Alondra MARES, Fermín Primary Care Provider Romina Min Unavailable [phone] Encounters Encounter Location Date Provider Diagnosis [address] [address] 07/26/2023 Romina Connell Plan Of Treatment No Information Progress Notes * Lisseth CHAUDHARI AnnDOB:[birth year] (74 yo F)Acc No.[id number]:07/26/2023 Progress Note Patient: Alea THOMAS Lisseth Ledesma Provider: Flor Connell DPM :1950 A ge:73 Y S ex:Female Date:07/26/2023 Address:[address] [place], [place] [address]zeb [address], [place], [place] Pcp:Fermín Cantu MD Subjective: * Chief Complaints: * * Medical History: Objective: * Vitals: Assessment: Plan: * Treatment: * Images: * The named appointment provid er may or may not be the originator of this progress note, and it is not deemed complete until electronically signed by the appointment provider. Sign off status: Pending * Provider: Flor Connell DPM Date: 0 07/26/2023 Generated for Printi ng/Faxing/eTransmitting on: 03/11/2024 05:35 PM EST
--- OUTSIDE RECORDS SUMMARY | 2023-09-10 09:30 | XMS_ITS ---
Author Organization [facility] Address [address] [place] [address] Care Team Providers Care Operating Theatre Technician Name Role Phone Alondra MARES, Fermín Primary Care Provider Romina Min Unavailable [phone] REASON FOR VISIT seen sooner Encounters Encounter Location Date Provider Diagnosis [address] [address] 09/10/2023 Romina Connell Plan Of Treatment No Information Progress Notes * Lisseth CHAUDHARI AnnDOB:[birth year] (74 yo F)Acc No.[id number]:09/10/2023 Progress Note Patient: Lisseth CAREY Provider: Flor Connell DPM :1950 A ge:73 Y S ex:Female Date:09/10/2023 Address:[address], [place], [place] Pcp:Fermín Cantu MD Subjective: * Chief Complaints: * 1 . Seen sooner. * Medical History: Objective: * Vitals: Assessment: Plan: * Treatment: * Images: * The named appointment provid er may or may not be the originator of this progress note, and it is not deemed complete until electronically signed by the appointment provider. Sign off status: Pending * Provider: Flor Connell DPM Date: 0 09/10/2023 Generated for Printi almas/Alex/eTransmitting on: 03/11/2024 05:34 PM EST
--- OUTSIDE RECORDS SUMMARY | 2024-01-17 08:30 | XMS_ITS ---
Author Organization [facility] Address [address] [facility] [place] [address] Care Team Providers Care Record Press Supervisor Name Role Phone Alondra MARES, Fermín Primary Care Provider Romina Min Unavailable [phone] Encounters Encounter Location Date Provider Diagnosis [address] [address] 01/17/2024 Romina Connell Plan Of Treatment No Information Progress Notes * Lisseth CHAUDHARI AnnDOB:[birth year] (74 yo F)Acc No.[id number]:01/17/2024 Progress Note Patient: Alea THOMAS Lisseth Ledesma Provider: Flor Connell DPM :1950 A ge:73 Y S ex:Female Date:01/17/2024 Address:[address] [place], [place] [address] [place] [address], [address], [place], [place] Pcp:Fermín Cantu MD Subjective: * Chief Complaints: * * Medical History: Objective: * Vitals: Assessment: Plan: * Treatment: * Images: * The named appointment provid er may or may not be the originator of this progress note, and it is not deemed complete until electronically signed by the appointment provider. Sign off status: Pending * Provider: Flor Connell DPM Date: 03/18/2023 Generated for Printi ng/Faciarrag/eTransmitting on: 03/11/2024 05:32 PM EST
--- NOTE | 2025-01-09 11:29 | A.OFFVIS_ITS ---
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 MRI reports severe disc degeneration and pinched nerves at L2. The pain has been ongoing, with the patient experiencing worsening symptoms over time. She has previously undergone surgery in 2000, but she is currently not interested in further surgical interventions. MRI also reports narrowing at L3-4 and L5-S1, contributing to her chronic pain. She experiences exacerbation of pain with walking, sitting, and standing, which significantly impacts her daily activities. The patient experiences frequent headaches, for which she has been prescribed Celebrex, providing some relief. She is cautious about starting new medications to avoid potential side effects and interactions. - Onset: Chronic, ongoing pain - Quality: Severe discomfort due to disc degeneration and pinched nerves - Location: Lower back and neck - Exacerbating factors: Walking, sitting, standing - Interference: Significant impact on daily activities - Affect: Pain is causing significant distress and frustration - Analgesia: Currently using Celebrex for pain relief - Adverse Effects: Concern about potential side effects from new medications - Activities of Daily Living: Pain limits ability to walk, sit, and stand comfortably - Aberrant Drug Related Behaviors: None reported Prior: The patient is a 74-year-old female presenting with chronic pain management concerns. She has a history of fibromyalgia, which causes widespread pain and flare-ups, currently exacerbated by issues in her lower back. The chronic lower back pain is primarily located at the L4-L5 region, radiating down the right leg to the foot, causing significant discomfort and limited mobility. The pain has persisted for years, with a history of spinal fusion surgery followed by hardware removal. The patient reports that steroid injections previously used for pain management elevated her blood sugar levels, complicating her diabetes management. She has tried various medications, including gabapentin, which was ineffective and caused adverse effects such as brain fog. Patient ambulates with use of a cane, has a scooter for long distances. Denies red flag symptoms including loss of bowel, bladder or saddle anesthesia. Her diabetes mellitus requires careful management, especially considering her reluctance to use certain pain management devices due to infection risks. Most recent A1c was 8.5%. - Onset: Chronic, persisting for years - Quality: Radiating pain from lower back to right leg and foot - Location: Primarily at L4-L5, radiating down the right side - Exacerbating factors: Movement, sitting, standing, walking - Relieving factors: None effectively identified - Affect: Pain is causing significant distress and impacting psychological wellbeing - Analgesia: Previous use of gabapentin was ineffective; steroid injections increased blood sugar - Adverse Effects: Gabapentin caused brain fog; steroid injections affected diabetes management - Activities of Daily Living: Pain limits mobility and daily activities - Aberrant Drug Related Behaviors: None reported [facility] Medical History TIA (transient ischemic attack) Nephrolithiasis Surgical History Hx laparoscopic cholecystectomy H/O tubal ligation H/O partial thyroidectomy H/O Spinal surgery Social History Housing: Apartment Alcohol intake: current Alcohol intake frequency: holidays/special occasions only Patient Tobacco Use Status: Never used Tobacco Tobacco use type: Cigarette e-Cigarette/Vaping Use: Never Used Second Hand Smoke Exposure: No service: No Current occupational status: retired and disabled Cognitive needs: Yes (, scooter, walker) Hearing needs: No Vision needs: Yes (Glasses) Review of Systems Narrative - Musculoskeletal: Reports chronic back pain, neck pain, and headaches - Neurological: Reports headaches Physical Exam Exam Exam: General: awake, alert, oriented. Answers questions appropriately. Fully engaged in examination. Skin: warm, dry, intact HEENT: Normocephalic. Hearing intact. Cardiac: External chest normal in appearance. Respiratory: No cough, audible wheezing or stridor. Abdomen: without gross distension. MS: No obvious swelling or deformities. Able to transition from sit to stand unassisted. Ambulates with bilaterally normal heel strike and toe off Neurological: Oriented to person, place, time and situation. Thought process intact. Utilizes motorized scooter for ambulating long distances Psychiatric: Appropriate mood and affect. Good judgment and insight. Vital Signs: Last Vital Signs Pulse 95 01/09/25 11:30 Resp 16 01/09/25 11:30 BP 87/54 L 01/09/25 11:30 Pulse Ox 98 01/09/25 11:30 Oxygen Delivery Method Room Air 01/09/25 11:30 BMI result Body Mass Index 32.8 Results Reviewed Results Reviewed: 09/08/24 MRI LS INTERPRETATION: Conus shows normal tapering and intrinsic signal. Termination is at L1. Cauda equina nerve roots below L2-3 maintain normal splaying and thickness. No spinal canal masses or collections. Indeterminate paramagnetic artifact overlying spinal column to the right at L4- 5. Evidence of previously removed dorsal instrumentation with healed pedicle screw tracks. Straightening of normal lordotic curvature with 4-5 mm anterolisthesis at L2-3. Preserved vertebral body heights and no compression deformities. Prominent anterior disc osteophytic ridging L2-3 and L1-2 with associated mixed discogenic endplate edema more pronounced at L1-2. No compression deformities. L5-S1: Disc and facet joints are hypoplastic. No consolidation dorsolateral graft seen with facet joint ankylosis. No posterior disc protrusion, significant spinal canal or foraminal narrowing. L4-5: Mild disc degeneration with decompressed spinal canal. Shallow disc bulge present with small annular fissuring and bilateral facet joint ankylosis. There is mild residual right foraminal narrowing. No neural compression. L3-4: Moderate disc degeneration with widely decompressed spinal canal and facet joint ankylosis. No transiting nerve root compression. Both neural foramina mildly narrowed. No exiting nerve compression. L2-3: Severe disc degeneration with grade I anterolisthesis. No clearly defined pars fractures. Advanced facet joint overgrowth, left facet joint ankylosis and biforaminal disc osteophytes present. Moderate spinal canal and severe biforaminal narrowing evident. Both exiting L2 nerves impinged. L1-2: Severe disc degeneration with broad bulge, facet hypertrophy and mild facet joint arthrosis resulting in mild spinal canal and mild-moderate biforaminal narrowing. Exiting L1 nerves approached without compression. T12-L1: Disc height and hydration are preserved. No disc contour abnormality, spinal canal or foraminal stenosis is identified. T11-12 and T10-11: Disc dehydration at both levels with posterior T10-11 bulge. No protrusions or significant central canal narrowing. Degenerative bilateral T10-11 neural foraminal narrowing. No paraspinous soft tissue masses or collections. Included pelvis intact and marrow signal normal. CONCLUSION: 1. L2-3, severe disc degeneration with anterolisthesis and advanced facet joint overgrowth resulting in moderate spinal canal and severely narrowed neural foramina. Both exiting mild L2 nerves impinged. 2. L1-2, severe disc degeneration with mild spinal canal and mild-moderate biforaminal narrowing. Exiting L1 nerves encroached upon without high-grade compression. Mild facet joint arthrosis. 3. L3-4 through L5-S1 dorsal decompression with widely patent spinal canal and mild residual neural foraminal stenoses. Facet joint ankylosis solid through the levels. No neural impingement or evidence of adhesive arachnoiditis. 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 If surgical intervention is not desired, alternative pain management strategies such as steroid injections or nerve stimulators may be considered. The patient is currently using Celebrex for pain relief, and it is recommended to monitor its effectiveness before introducing additional medications. A follow-up appointment is suggested to reassess pain levels and adjust the management plan as necessary. Patient requests referral to Dr. Hua at [facility] as she has been evaluated by him in the distant past. Patient was informed and verbally consented to the use of an ambient scribe for clinic note documentation during this visit. Orders: Referrals Neurosurgery Referral M51.36 - Other intervertebral disc degeneration, lumbar region, M54.16 - Radiculopathy, lumbar region, M79.7 - Fibromyalgia, M96.1 - Postlaminectomy syndrome, not elsewhere classified Coding Level of Care Code Est Pt Level 3 (09304) Complex EM visit Add On G2211 Diagnoses Fibromyalgia M79.7 Failed back surgical syndrome M96.1 Lumbar radiculopathy M54.16 Degenerative disc disease, lumbar M51.36
[2025-01-09 11:30] VITALS: BP 87/54; PULSE 95; RESP 16; O2SAT 98; BMI 32.8
--- OUTSIDE RECORDS SUMMARY | 2025-01-09 17:33 | XMS_ITS | Continuity of Care Document ---
Author Name Vadim Benitez Address [address] [place] [id number] Organization Unknown Address [address] [place] [address] Medications No known medications Problems No known problems
--- OUTSIDE RECORDS SUMMARY | 2025-01-09 17:33 | XMS_ITS | Encounter Summary ---
Author Organization [facility] Address [address] [place] [address] Encounters * CPT with Vadim Benitez at [facility] on 2024-09-02 { reasonForRequest : Patient has [...]
--- OUTSIDE RECORDS SUMMARY | 2025-01-09 17:33 | XMS_ITS | Continuity of Care Document ---
Author Name [facility] Address [address] [place] [id number] Organization Unknown Address [address] [place] [id number] Medications No known medications Problems No known problems
--- OUTSIDE RECORDS SUMMARY | 2025-01-09 17:33 | XMS_ITS | Data Portability ---
Author Organization [facility], [facility] Address [address] [place] [address] Care Team Providers Care Chain Machine Operator Name Role Phone HIM CCA OTHER Assessment Encounter Date Assessment Date Assessment LastModified by Organization Details LastModified Time 06/25/2024 06/25/2024 Ms. Chaudhari is a 74yo [...] Assessment and Plan as documented by the Fitness Coach. We discussed the diagnostic uncertainty of home visits and the risk associated with this. In this case the patient and I felt this to be an acceptable and reasonable amount of risk given the benefit of avoiding an ED visit. The patient given the opportunity to ask questions. Follow up with primary care was recommended, as needed. Advised if develops CP/severe SOB/turning blue/uncontrolled n/v/d or black/bloody emesis or stool/ AMS/ [...] medical condition. Reviewed her relative and absolute contraindications, she is not anticoagulated, states has tolerated [...] We discussed the need to seek care urgently/emergentl y in the setting of any new or worsening serious symptoms [email or web address] Not available 07/28/2024 12:22:50 09/02/2024 09/02/2024 service [...] assessment and plan as documented by the employee relations consultant. I provided real-time medical direction for this [...] tenderness, laterally. Exam otherwise unremarkable per the employee relations consultant Impression/Plan: Patient with chronic neck pain. Review [...] We discussed the need to seek care urgently/emergentl y in the setting of any new or worsening serious symptoms, particularly weakness, dizziness, fever, chills, CP, SOB, worsening diarrhea, nausea, vomiting or any other concerns. [email or web address] Not available 09/09/2024 20:52:23 12/29/2024 12/29/2024 I provided real -time medical direction via phone for this encounter and was available for additional phone-based assistance as needed. I have reviewed and agree with the Assessment and Plan as documented by the Fitness Coach. Patient given the opportunity to ask questions. As per above, patient with DM and elevated BG. Calls this service for assistance in managing DM this evening. Per employee relations consultant on the scene, VSS Please read the employee relations consultant note for their exam findings. Impression: DM with hyperglycemia Plan: Medic clarified short-acting dose with endo on-call and observed patient administer. She has f/u in the AM. Allergies: Reviewed We discussed the diagnostic uncertainty of home visits and the risk associated with this. In this case, the patient and I felt this to be an acceptable and reasonable amount of risk given the benefit of avoiding an ED visit. We discussed the need to seek care urgently/emergentl y in the setting of any new or worsening serious symptoms, particularly fever chills lightheadedness altered mental status [email or web address] Not available 12/29/2024 20:51:38 Plan of Treatment Reminders Order Date Submit Date Provider Last Modified By Organization Details Last Modified Time Details Appointments None recorded. Lab glucose, fingerstick , blood 2024 025 [facility], [address] [place] [address], [phone] 21:00:53 BMP, serum or plasma [address], [phone] 5 14:38:13 hemoglobin + hematocrit, blood [address], [phone] 14:38:14 Referral None recorded. Procedures None recorded. Surgeries None recorded. Imaging None recorded. Medication Orders ketorolac 30 mg/mL injection solution 2024 025 [facility], [address], [place], [address], 5 20:52:25 ketorolac 30 mg/mL injection solution 2024 025 [email or web address], [address], [place], [address], 19:28:56 ketorolac 30 mg/mL injection solution 2024 025 [email or web address] 84 [facility], [address], [place], [address], 5 12:16:41 ketorolac 30 mg/mL injection solution 2024 025 [email or web address] [facility], [address], [place], [address], 17:52:49 Patient TargetsNo targets recorded. Patient InstructionsNo [...] Name and Address Organization Details Recorded Time 65434 codeine medicatio n Not available Not available Not available 02/12/2024 2670 RxNorm Not Available [facility] - production 13:38:29 99360 Demerol medicatio n Not available Not available Not available 02/12/2024 97055 1 RxNorm Not Available [facility] - production 13:38:29 39272 Jardiance medicatio n Not available Not available Not available 02/12/2024 45276 59 RxNorm Not Available [facility] - production 13:38:29 24880 meloxicam medicatio n Not available Not available Not available 02/12/2024 83054 RxNorm Not Available [facility] - production 13:38:29 27603 Naprosyn medicatio n Not available Not available Not available 02/12/202420291 [address] [facility] [address] [facility] 4 13:38:29 65976 paroxetin e Not available Not available Not available Not available 02/12/2024 [address] [address] [facility] 4 13:38:29 41921 fluoxetin e medicatio n Not available Not available Not available 02/12/2024 [address] [facility] 4 13:38:29 72335 tramadol medicatio n Not available Not available Not available 02/12/2024 [address] [facility] 4 13:38:29 35014 naproxen medicatio n Not available Not available Not available 12/29/2024 7258 RxNorm Not Available jenny - External [employer] - prod 5 19:56:15 71070 meperidin e medicatio n Not available Not available unabletoasse 12/29/2024 6754 RxNorm Not Available jenny - External Data [employer] - prod 5 19:56:15 08143 aspirin medicatio n Not available Not available Not available 12/29/2024 1191 RxNorm Not Available jenny - External Data Service - [facility] 5 19:56:33 78248 lidocaine medicatio n Not available Not available Not available 12/29/2024 6387 RxNorm Not Available jenny - External Data Service - [facility] 5 19:56:33 43 amitripty line medicatio n Not available Not available Not available 04/22/2021 704 [facility] 13:38:29 44 nortripty line medicatio n Not available Not available Not available 04/22/2021 [address] [facility] 4 13:38:29 45 latex environme nt,medica tion Not available Not available Not available 04/22/2021 10822 91 RxNorm Not Available [facility] 4 03:46:54 8803 morphine medicatio n Not available Not available Not available 12/25/2023 7052 RxNorm Not Available [facility] - production 4 03:46:54 Medications Name Sig [...] % 97 % 142/86 mm[Hg] Not Available [facility] [employer] 5 17:48:57 Date Recorded Oxygen saturation Oxygen saturation in Arterial blood by Pulse oximetry Body height Body weight Heart rate Respiratory rate Body temperature Systolic And Diastolic Provider Name and Address Organization Details Last Updated DateTime 5 100 % 100 % 160.02 cm 20672.6 4 g 87 /min 16 /min 97.9 [degF] 135/84 mm[Hg] Not Available [facility] 5 11:52:31 Date Recorded Oxygen saturation Oxygen saturation in Arterial blood by Pulse oximetry Respiratory rate Body height Body weight Heart rate Body temperature Systolic And Diastolic Provider Name and Address Organization Details Last Updated DateTime 5 99 % 99 % 14 /min 157.48 cm 19947.6 g 99 /min 97.9 [degF] 124/82 mm[Hg] Not Available [facility] 5 19:24:51 Date Recorded Respiratory rate Body temperature Oxygen saturation Oxygen saturation in Arterial blood by Pulse oximetry Heart rate Systolic And Diastolic Provider Name and Address Organization Details Last Updated DateTime 5 18 /min 98 [degF] 98 % 98 % 103 /min 124/71 mm[Hg] Not Available [facility] [employer] 5 20:45:41 Date Recorded Body temperature Respiratory rate Body weight Body height Oxygen saturation Oxygen saturation in Arterial blood by Pulse oximetry Heart rate Systolic And Diastolic Provider Name and Address Organization Details Last Updated DateTime 5 97.9 [degF] 18 /min 25055.6 4 g 157.48 cm 99 % 99 % 90 /min 180/81 mm[Hg] Not Available [facility] - production 20:40:04 Social History None recorded. Functional Status None [...] 212 Opal Wilson MD Main - [facility] [address] [place] [phone] 04/22/2021 22:46:42 10/12/2021 11:31:44 Low back pain 308222832 M54.50 Lumbar radiculopathy 128 310304 M54.16 7506 Angel Sampson MD Main - [facility] [address] [place] [phone] 0 03/31/2022 13:39:44 04/03/2022 12:15:20 Costal chondritis 03643207 M94.0 Patient presents with exacerbati on of [...] [address] MD Main - [facility] [address] [place] [phone] 0 05/31/2022 13:10:05 06/02/2022 10:28:07 Chronic low back pain [id number] M54.50 Patient has a history of chronic low back pain with lower extremity radiation, worsened in the setting of exertion. Per employee relations consultant she is supposed to be taking ibuprofen and a muscle relaxant , both of which she has not taken for the last three days. She reports symptoms are consistent with her chronic pain, otherwise unchanged. Doubt new process given descriptio n of symptoms and time course. Plan for symptomati c treatment and continued outpatient follow-up. 22026 Kyle Boston MD Main - [facility] [address] [place] [phone] 07/06/2022 13:23:29 07/06/2022 15:26:36 Fibromyalgia [id number] M79.7 This 72-year-ol d female with fibromyalg ia has had increased pain for the past day due to increased activity. She takes ibuprofen but isn't getting much relief. I ordered Toradol 15 mg IM. I recommende d that she also try adding Tylenol as needed for pain. She will follow-up with her PCP. The patient agreed with this plan. [id number] Evelin Kwok MD Main - [facility] [address] [place] [phone] 0 08/25/2022 18:26:01 08/26/2022 10:05:02 Hyperglycemia 57756046 R73.9 47943 Opal Wilson MD Main - [facility] [address] [place] [phone] 0 11/29/2022 11:26:46 12/05/2022 00:03:06 Chronic back pain 648772541 M54.9 History of DJD/ fibromyalg ia with acute flare- advised close f/u with pcp annel- advised warm compresses gently qid- denies hx ckd or PUD-(creat inine 0.7 on 08/25/2022 )has had relief with ketorolac in the past-has ibuprofen and Tylenol at home. Advised no ibuprofen for 6 hours after the ketorolac. [place] [id number] Yun Smith MD Main - [facility] [address] [place] [phone] 01/23/2023 10:14:24 09/12/2024 19:30:08 Osteoarthritis [id number] M19.90 ketorolac 74152 Kyle Boston MD Main - [facility] [address] [place] [phone] 0 03/27/2023 13:00:48 03/27/2023 21:37:01 Chronic pain syndrome 660719735 G89.4 This 73-year-ol d female has chronic pain. She recently moved and her pain has increased. She takes ibuprofen but today it hasn't been effective. I ordered Toradol 30 mg IM. She will follow-up with her PCP. The patient agreed with this plan. 69106 Opal Wilson MD Main - [facility] [address] [place] [phone] 0 02/12/2024 14:30:07 02/12/2024 22:14:46 Slurred speech 672440587 R47.81 With gait disturbanc e/possible CVA advised the need for advanced imaging and workup in the emergency room. Patient agreed with the plan as did family. EMS activated and patient sent to [facility]. Report given by myself to ED lost charge card clerk [id number] ANGELIA LAWRENCE MD Main - [address] [phone] 06/25/2024 17:48:55 06/25/2024 21:34:30 Bilateral sciatica [id number] 5980289 M54.31 M54.32 501235 [id number] Malik Broussard MD [facility] - [address] [address] 07/28/2024 11:52:28 07/28/2024 14:23:14 Chronic pain 48264240 M54.2 M54.9 G89.29 [id number] Jeffrey Duarte MD [facility] ED Medical [address] [phone] 09/02/2024 19:24:48 09/03/2024 21:11:50 Chronic neck pain 0297382668 107 M54.2 G89.29 7743574 95368 Teresa Eller MD [facility] Medical [address] [phone] 09/09/2024 20:45:39 09/09/2024 23:30:58 Chronic neck pain 6768194008 107 M54.2 G89.29 [id number] Dee Dee Mosher MD [facility] Medical [address] [phone] 12/29/2024 20:39:57 12/30/2024 15:40:43 History of diabetes mellitus 308642106 Z86.39 277308 Health Concerns Section Related Observation LastModified by Organization Detai ls LastModified Time None Recorded Concern Status LastModified by Organization Details LastModified Time None Recorded Advance Directives Directive None Recorded Payers Insurance Date Sequence Insurance Name Policy Number Policy Lewis Covered Member ID Lewis Member ID Guarantor Name 08/25/2022 1 [facility] - DOS PRIOR TO 2022 - DUAL ELIGIBLE (MEDICARE REPLACEMENT/ADV ANTAGE - HMO) Lisseth Chaudhari [id number] Lisseth Chaudhari 12/29/2024 1 [facility] - DOS ON OR AFTER 2022 - DUAL ELIGIBLE - LONG-TERM OPTIONS AND ONE CARE (MEDICARE REPLACEMENT/ADV ANTAGE - HMO) Lisseth Chaudhari [id number] Lisseth Chaudhari Notes Date Note Type Note Provider Name and Address Organization Details Recorded Time 06/25/2024 text/html ROS as noted in the [facility] CRC Nurse Triage Notes (Eliane Perry): [...] signs of when to seek emergency care. ..................... ..................... ..................... ..................... ..................... ..................... ............... Fitness Coach Note From Gabriele Lund: Encountered patient seated [...] non-distended. Extremities, free of trauma and edema. [facility] contacted: orders for 30 mg of IM Toradol administered. Patient encouraged to monitor for priority symptoms, such as chest pain or shortness of breath, and additionally to attempt to follow up with primary care in order to receive further treatment for her chronic ailment. Patient verbalizes understanding of the plan, expresses gratitude, and states she is comfortable with remaining home at this time. [facility] Medication Orders: ketorolac 30 mg/mL injection solution: Administered ..................... ..................... ..................... ..................... ..................... ..................... ............... [facility] Consulted: Angelia Lawrence ..................... ..................... ..................... ..................... ..................... ..................... ............... Disposition: Fulfilled ANGELIA LAWRENCE MD [address] [facility],[address], [place], [address], [employer] 06/25/2024 21:30:51 07/28/2024 text/html ROS as noted [...] has used them recently with good effect. ..................... ..................... ..................... ..................... ..................... ..................... ............... CRC Nurse Triage Notes (Patricia Garcia): Reason For Request: Pain Chief Complaints: Neck Pain, Back Pain PMH: Coronary Artery Disease, Hypertension, COPD/Asthma, Fibromyalgia, Chronic Back Pain PMH Reviewed at 07/28/2024 - 10:30 Allergies Reviewed at 07/28/2024 - 10:30 Pain Assessment: Level 10 out of 10 Comments: HPI reviewed Fitness Coach Organization Information for Vinayak Aggarwal Ailyn Legal Name: [employer]. Address: [address] [place] [address], Front Desk Attendant: Adan Tsang MD CLIA No.: [id number] Fitness Coach POC Test Results from Vinayak Aggarwal RAUL iSTAT Chem8+ (12:12:14) Na: 141 mEq/L K: 4.1 mEq/L Cl: 106 mEq/L iCa: 1.14 mmol/L TCO2: 24 mmol/L Glu: 73 mg/dL BUN: 14 mg/dL Crea: 0.7 mg/dL Hct: 44 % Hb: 15.0 g/dL A mmol/L Cartridge Number: [id number] ..................... ..................... ..................... ..................... ..................... ..................... ............... Fitness Coach Note From Vinayak Aggarwal: [facility] visit for female pt complaining of pain [...] is consistent with chronic pain. Consulted with [facility] who ordered blood draw for creatinine and hemoglobin. Blood drawn and results uploaded and administered 30 mg IM toradol per Dr. Broussard. [facility] Lab Orders: BMP, serum or plasma: Performed hemoglobin + hematocrit, blood: Performed [facility] Medication Orders: ketorolac 30 mg/mL injection solution: Administered ..................... ..................... ..................... ..................... ..................... ..................... ............... [facility] Consulted: Malik Broussard ..................... ..................... ..................... ..................... ..................... ..................... ............... Disposition: Fulfilled Malik Broussard MD [address] [place] [address],[address], [place], [phone], [employer] 07/28/2024 14:11:49 09/02/2024 text/html CRC Nurse Triage [...] signs of when to seek emergency care. ..................... ..................... ..................... ..................... ..................... ..................... ............... Fitness Coach Note From Danny Dixon: Patient alert and [...] to follow up with primary care physician. [facility] Medication Orders: ketorolac 30 mg/mL injection solution: Administered ..................... ..................... ..................... ..................... ..................... ..................... ............... [facility] Consulted: Jeffrey Duarte ..................... ..................... ..................... ..................... ..................... ..................... ............... Disposition: Tomi Duarte MD [address] [place] [address],[address], [place], [phone] [employer] 09/02/2024 21:50:12 09/09/2024 text/html CRC Nurse Triage [...] signs of when to seek emergency care. ..................... ..................... ..................... ..................... ..................... ..................... ............... Fitness Coach Note From Candace Russell: Sent to a [...] area. Extremities: unremarkable; Skin: pink, warm, dry; [facility] consulted and orders Toradol 15mg IM. Pt is advised to follow up with PCP tomorrow. 5 medium cycle salesperson rights verified; Toradol 15mg IM administered; Red flags discussed. Pt has no further questions. [facility] Medication Orders: ketorolac 30 mg/mL injection solution: Administered ..................... ..................... ..................... ..................... ..................... ..................... ............... [facility] Consulted: Teresa Eller ..................... ..................... ..................... ..................... ..................... ..................... ............... Disposition: Fulfilled Teresa Eller MD [address] [facility],[address], [place], [address], [employer] 09/09/2024 21:57:05 12/29/2024 text/html HPI: Member is concerned her blood sugars are high in the 500s at the moment and says her provider recently changed her medications. Member was on hold with her providers office this afternoon but also requested a Wedding [employer] referral. Thank you. ..................... ..................... ..................... ..................... ..................... ..................... ............... CRC Nurse Triage Notes (Sirena Salgado): Chief Complaints: Diabetes Related PMH: Coronary Artery Disease, Hypertension, COPD/Asthma, Fibromyalgia, Chronic Back Pain, Diabetes Mellitus Type 2 PMH Reviewed at 12/29/2024 - 17:30 Allergies Reviewed at 12/29/2024 - 17:30 Comments: HPI reviewed. Fitness Coach Organization Information for Erasmo [employer] Legal Name: [facility] Address: [address] [place] [address], [place] [address], Front Desk Attendant: Francisco Guillen MD SOM No.: [id number] Fitness Coach POC Test Results from Erasmo Nevarez [facility] Blood Glucose Measurement (18:29:23) Blood Glucose: 515mg/dL ..................... ..................... ..................... ..................... ..................... ..................... ............... Fitness Coach Note From Erasmo Nevarez: 76-year-old female in contact with her rougher helper office today who were reviewing her medication s after starting glipizide and had been running in the 350s for the last four or five days and then today her CGM was reading high and her fingerstick also red high. I performed fingerstick and got 515. Patient was talking with endocrinology office when I was on the phone and said something about five units and patient was concerned that wasn t enough. Called the on-call service for endocrinology office and Dr. Carter reviewed notes from Cyn who I v e been talking with patient. Dr. Carter reviewed notes. Patient confirm she had taken Lantis and glipizide today and they okayed five. Units of Lyumjev because she had taken glipizide and Lantis earlier in the day and was having unexplained the low blood sugars on Sunday based on her CGM history. Dr. Mosher consulted multiple times a long way to have the on-call endocrinology call back so did spend a long time waiting for confirmation. Patient advised not to take glipizide tomorrow to resume her normal insulin sliding scale. Went over those instructions three times and patient did seem aware of that and was definitely not going to take the glipizide because she felt like it wasn t working at all. Patient gave herself the five units of insulin with no issues and was able to verbalize her understanding of the insulin scale. Patient was walking without issues and noted that her right eye, which has a cataract was having a lot of difficulty seeing, but she was able to read and confirm the insulin pen reaching of five units with her good left eye. Patient is to have cataract discussion with ophthalmology tomorrow morning and is excited to have cataract surgery. Patient advised to drink plenty of water tonight and not to have significant food tonight and to follow up with her primary care and endocrinology team this week. ..................... ..................... ..................... ..................... ..................... ..................... ............... [facility] Consulted: Dee Dee Mosher ..................... ..................... ..................... ..................... ..................... ..................... ............... Disposition: Fulfilled Dee Dee Mosher MD [address] [facility],[address], [place], [address], [employer] 12/29/2024 20:52:03 OBGyn Episode No OBEpisode recorded.
--- OUTSIDE RECORDS SUMMARY | 2025-01-09 17:34 | XMS_ITS | Continuity of Care Document ---
Author Name Vadim Benitez Address [address] [place] [id number] Organization Unknown Address [address] [place] [address] Medications No known medications Problems No known problems
--- OUTSIDE RECORDS SUMMARY | 2025-01-09 17:34 | XMS_ITS | Encounter Summary ---
Author Organization [facility] Address [address] [place] [address] Encounters * CPT with Vadim Benitez at [facility] on 2024-09-10 { reasonForRequest : back pain [...] to follow up with PCP tomorrow. 5 social media manager rights verified; Toradol 15mg IM administered; Red flags discussed. Pt has no further questions. IV_(FLUIDS_AND/OR_MEDICATION), MEDICATION_IM, ORAL_MEDICATION, EKG Written by Vadim Benitez on 2024-09-10
--- OUTSIDE RECORDS SUMMARY | 2025-01-09 17:34 | XMS_ITS | Patient Health Record ---
Author Organization [facility] Address [address] [place] [address] Care Team Providers Care Planisher Name Role Phone Alondra MARES, [facility] Primary Care Provider Romina Min Unavailable [phone] Allergies Allergen (clinical drug ingredient) Drug/Non Drug [...] Problem Acquired hammer toe of right foot ([id number] ) Other hammer toe(s) (acquired), right foot (M20.41) Active confirmed Problem Acquired hammer toe of left foot ([id number] ) Other hammer toe(s) (acquired), left foot (M20.42) Active confirmed Problem Polyneuropathy due to diabetes mellitus type I (467213458) 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) Active confirmed Encounters Encounter Location Date Provider Diagnosis [facility] [address] [place] [address] 01/17/2024 Romina Connell Plan Of Treatment No Information Insurance Providers Payer Name Payer Address Payer Phone Subscriber Number Group Number Insured Name Patient Relationship to Insured Coverage Start Date Coverage End Date [facility] [employer] Claims [address] [place] [address] [id number] Lisseth Chaudhari Self - patient is the insured Medical (General) History Medical History History ICD Code Angina Anxiety Arthritis asthma Back,Hip,and Knee pain Broken bones Mumps Diabetic Depression Headaches/Migraines Hiatal hernia nerve disorder Sinus conditions Stomach ulcer Surgical History Surgery Date(Month/Year) back surgery leg surgery,right Hospitalization History Reason Date(Month/Year)
--- OUTSIDE RECORDS SUMMARY | 2025-01-09 17:35 | XMS_ITS | Continuity of Care Document ---
Author Name [facility], Medical Address [address] [place] [id number] Organization Unknown Address [address] [place] [address] Medications No known medications Problems No known problems
== END 2025-01-09 12:01 | disposition home or self-care (01) ==
PROVIDERS: Visit Provider Registered Nurse Emergency
DX: M79.7 Fibromyalgia (principal); M96.1 Postlaminectomy syndrome, not elsewhere classified; M54.16 Radiculopathy, lumbar region; M51.369 Other intervertebral disc degeneration, lumbar region without mention of lumbar back pain or lower extremity pain
CPT/HCPCS: 99213; G2211

== ENCOUNTER → 2025-01-09 11:24 | Outpatient (BNVA) | payer OTHER, SELFPAY | PROVIDERS: Visit Provider Registered Nurse Emergency | DX: M79.7 Fibromyalgia (principal); M96.1 Postlaminectomy syndrome, not elsewhere classified; M54.16 Radiculopathy, lumbar region; G89.29 Other chronic pain; M51.362 Other intervertebral disc degeneration, lumbar region with discogenic back pain and lower extremity pain | CPT/HCPCS: 99212 ==

== ENCOUNTER 2025-01-28 11:35 | Outpatient (REF) | payer OTHER, SELFPAY ==
--- OUTSIDE RECORDS SUMMARY | 2023-09-10 09:30 | XMS_ITS ---
Author Organization [facility] Address [address] [place] [address] Care Team Providers Care Seam Stayer Name Role Phone Alondra MARES, Fermín Primary Care Provider Romina Min Unavailable [phone] REASON FOR VISIT seen sooner Encounters Encounter Location Date Provider Diagnosis [address] [address] 09/10/2023 Romina Connell Plan Of Treatment No Information Progress Notes * Lisseth CHAUDHARI AnnDOB:[birth year] (74 yo F)Acc No.[id number]:09/10/2023 Progress Note Patient: Lisseth CAREY Provider: Flor Connell DPM :1950 A ge:73 Y S ex:Female Date:09/10/2023 Address:[address], [place], [place] Pcp:Fermín Cantu MD Subjective: * Chief [...] 0 09/10/2023 Generated for Printi almas/Alex/eTransmitting on: 03/31/2024 02:05 PM EST
--- OUTSIDE RECORDS SUMMARY | 2025-01-28 14:04 | XMS_ITS | Continuity of Care Document ---
Author Name [facility], Medical Address [address] [place] [id number] Organization Unknown Address [address] [place] [id number] Medications No known medications Problems No known problems
--- OUTSIDE RECORDS SUMMARY | 2025-01-28 14:06 | XMS_ITS | Encounter Summary ---
Author Organization [facility] Address [address] [place] [address] Encounters * CPT with Medical [facility] at [facility] on 2025-01-13 { reasonForRequest : injury to shoulder from fall , patientReports :&q uot; , denies :[ Falls with head strike and LOC , Falls from a standing position, no LOC, patient is amnestic to the event , Falls with isolated injury and deformity noted to limb , Falls with inability to move post fall , Cool extremitiesafter fall or injury ], chiefComplaints : Falls, Extremity Pain , pmh": Coronary Artery Disease, Hypertension, COPD/Asthma, Fibromyalgia, Chronic Back Pain, Diabetes Mellitus Type 2 , allergies : Latex, Morphine, Nortriptyline, Amitriptyline, Codeine, Demerol, Jardiance, Meloxicam, Naprosyn, Paroxetine, Fluoxetine, Tramadol , ot herAllergies :null, painAssessment : , visitOutcome : &quot ;, additionalComments : 74 y.o female complains of Falls, Extremity Pain\nPatient calling reporting fall onto her L shoulder after loosing her balance and fell back. Patient reports significant L shoulder pain, explained to patient we have no way of doing imaging in the home, but patient adamant she cannot go to the hospital as she has no ride home. Patient reports she got up off the floor since falling. Patient does endorse head strike, denies loss of consciousness. Patient denies blood thinner use or daily aspirin use. Patient also complaining of neck pain since falling. Patient denies obvious deformity to arm. Patient does report some numbness to L arm since falling. Advised patient of risks of waiting to be seen given reported symptoms, but patient continues to refuse calling 911 or going to the hospital. I provided information on the mobile health provider response time and advised the patient and/or caregiver to monitor reported signs and symptoms. I discussed thewarning signs of when to seek emergency care -Saurav Ponce RN } [facility] makes pt contact a 74 yo F CC of a fall injuring her left shoulder [facility] obtains vital signs. PT explains she was trying to turn on some curtain lights that she has on her front bay style window when she turned around she stumbled and fell backwards onto her mobility scooter striking her back and shoulder as she continued to fall she struck the posterior LL region of her head. No visible bleeding, no neck tenderness, pt explains pain in the left shoulder and alongthe trap muscle. PT also explains of pain around the scapula as well. PT has tenderness on L shoulder upon light palpation. PT is unable to raise her arm and has it in a slinged position of comfort naturally. PT is not on blood thinners and denies LOC. [facility] contacts [facility] and explains above mentioned. Both [facility] and [facility] advise pt to be seen in the emergency department because of high suspicion of a fx. PT at first does not want to go fearing she wont be able to find a ride home. After some conversation pt daughter calls her and explains she will help figure out transportation and urges her to go. PT at this time agrees and [facility] informs [facility]. [facility] originally ordered tylenol and to place arm in slingbut interventions were not provided. [facility] contacts [address] [facility] arrives and assumes pt care.PT is to be transported to [facility]. IV_(FLUIDS_AND/OR_MEDICATION), MEDICATION_IM, ORAL_MEDICATION, EKG, GLUCOSE, WOUND_CARE, ORTHOSTATIC_VITAL_SIGNS Written by Medical [facility] on 2025-01-13
--- OUTSIDE RECORDS SUMMARY | 2025-01-28 14:06 | XMS_ITS | Continuity of Care Document ---
Author Name [facility], Medical Address [address] [place] [id number] Organization Unknown Address [address] [place] [address] Medications No known medications Problems No known problems
[2025-01-28 14:36] LABS: Alanine Aminotransferase 16 U/L (0-31); Albumin Level 4.1 g/dL (3.5-5.0); Alkaline Phosphatase 70 U/L (39-117); Anion Gap 14 (12-20); Aspartate Amino Transferase 27 U/L (5-31); Blood Urea Nitrogen 21 mg/dL (9-16); Calcium 9.3 mg/dL (8.4-10.2); Carbon Dioxide 23 mmol/L (22-29); Chloride 106 mmol/L (96-108); Cholesterol 137 mg/dL (<200); Estimated Glomerular Filt Rate > 60; HDL Cholesterol 60 mg/dL (>40); Potassium 3.7 mmol/L (3.3-5.1); Sodium 139 mmol/L (135-145); Total Protein 7.2 g/dL (6.5-8.0); Triglycerides 63 mg/dL (<150)
== END 2025-01-28 11:36 | disposition home or self-care (01) ==
LOC: HO.HMGCLDS 11:35
PROVIDERS: PCP Radiology Diagnostic Radiology; Visit Provider Radiology Diagnostic Radiology
DX: I25.10 Atherosclerotic heart disease of native coronary artery without angina pectoris (principal); E78.00 Pure hypercholesterolemia, unspecified; E03.9 Hypothyroidism, unspecified
CPT/HCPCS: 36415; 80053; 80061; 84443

== ENCOUNTER 2025-01-30 09:12 | Outpatient (AMB) | payer OTHER, SELFPAY ==
[2025-01-30 09:22] VITALS: BP 122/60; PULSE 97; RESP 18; O2SAT 96; BMI 32.3
--- NOTE | 2025-01-30 09:22 | MHC.PC.OV ---
Vital Signs 01/30/25 09:22 Height 5 ft 1.22 in Weight 172 lb 2 oz BMI 32.3 BP 122/60 Blood Pressure Location Lt brachial Position Sitting Respiration 18 Pulse 97 Pulse Source Pulse Oximeter Temp Source Temporal Artery Scan Pulse Oximetry (%) 96 Oxygen Delivery Method Room Air Intake Visit Reasons: r/s appt with AB to me in afternoon Control Clerk Subassembly Required: No Accompanied by: Self / Same As Patient Allergies adhesive tape Allergy (Intermediate, Verified 01/30/25 09:43) Hives amitriptyline Allergy (Intermediate, Verified 01/30/25 09:43) Hives codeine Allergy (Intermediate, Verified 01/30/25 09:43) Hives nortriptyline Allergy (Intermediate, Verified 01/30/25 09:43) Hives Medication List - Last Reconciled 01/30/25 by Annalisa Jackson PA-C [Adult Pullups Size L As directed] aspirin 81 mg PO DAILY atenolol 150 mg (3 x 50 mg) PO DAILY 30 days blood-glucose sensor (DalloulNWyle Lilian 3 Plus Sensor device) As directed blood-glucose,telephone maintenance mechanic,cont (FreeStyle Lilian 3 [place]) As directed celecoxib (Celebrex) 100 mg PO BID [electric scooter cushion As directed] vpbintsiert-hufrqkxfn-nwyozlzz 200-62.5-25 mcg (Trelegy Ellipta) 1 inh inhalation DAILY glipizide ER 2.5 mg PO DAILY glucagon 3 mg/actuation (Baqsimi) mg intranasal hydrochlorothiazide 12.5 mg PO DAILY insulin glargine (Lantus Solostar U-100 Insulin) 32 units subcut QPM levothyroxine 112 mcg PO DAILY lisinopril 10 mg PO DAILY nitroglycerin 0.4 mg sublingual Q5M PRN polyethylene glycol 3350 (Miralax) 17 grams PO DAILY pravastatin 80 mg PO BEDTIME sertraline 100 mg PO DAILY sertraline 50 mg PO DAILY tirzepatide (Mounjaro) 10 mg subcut QWEEK Tobacco use date assessed: 01/30/25 Fall risk assessment: 1 Fall in past year Last assessed Fall Risk: 01/30/25 Dental Screening Dental Screen Date: 01/30/25 Did you have a dental visit in the last 12 months?: No Did you have a dental problem in the last 6 months where you did not have access to dental care?: No Was dental information given to patient?: No HPI r/s appt with AB to me in afternoon HPI Details 74-year-old female with past medical history of failed back syndrome, hypertension, COPD, anxiety, depression, fibromyalgia, neuropathy, insulin-dependent type 2 diabetes, hypercholesterolemia, coronary artery disease last seen 11/2024 coming in for follow up. In review of the notes, patient was seen by pain management 12/2024 neurosurgery referral was made and consideration for steroid injections and nerve stimulators. Presenting for evaluation of dizziness and chronic condition management. She reports experiencing dizziness, described as a room-spinning and cloudy or foggy sensation, which starts in the morning and can last throughout the day. She recently had a fall at home, which prompted a visit to [facility]. The fall occurred when she lost her balance while hanging decorations, causing her to fall backward and hit a TV stand, resulting in stiffness for a couple of days. For mental health, the patient reports feeling down due to seasonal depression and is followed by a psychologist at [facility]. She is prescribed sertraline 150 mg and is uncertain if the dose was recently changed. PENDING SALE TO [facility] Medical History TIA (transient ischemic attack) Nephrolithiasis Surgical History Hx laparoscopic cholecystectomy H/O tubal ligation H/O partial thyroidectomy H/O Spinal surgery Social History Housing: Apartment Alcohol intake: current Alcohol intake frequency: holidays/special occasions only Patient Tobacco Use Status: Never used Tobacco Tobacco use type: Cigarette e-Cigarette/Vaping Use: Never Used Second Hand Smoke Exposure: No service: No Current occupational status: retired and disabled Cognitive needs: Yes (, scooter, walker) Hearing needs: No Vision needs: Yes (Glasses) Questionnaire Thrive Questionnaire Date Thrive assessed: 01/30/25 I am a: Patient What is your living situation today?: I have a steady place to live Within the past 12 months, did the food you bought not last and you didn't have the money to get more?: Never true Within the past 12 months, did you worry whether your food would run out before you got money to buy more?: Never true Do you have trouble paying for medicines?: No Do you have trouble getting transportation to medical appointments?: No Do you have trouble paying your heating and electricity bill?: No Do you have trouble taking care of your child, family member or friend?: Yes Do you have trouble with day-to-day activities such as bathing, preparing meals, shopping, managing finances, etc.?: Yes Are you currently unemployed and looking for a job?: Yes Are you interested in more education?: No Please select the resources that you would like help with: None Currently or been in a relationship where the following occur: No concerns reported THRIVE Score: 0 ALVERTO-7 AMB Questionnaire ALVERTO-7 Date ALVERTO - 7 assessed: 12/24/24 Source: Developed by Drs. Umang Silva, Elizabeth Mar, Ronak Lindsey and colleagues, with an educational malia from [employer]. Review of Systems Const Denies body aches, Denies chills, Denies fever(s), Denies headache(s) and Denies poor appetite Eyes Reports no additional complaints ENT Reports dizziness and Denies headache(s) Card Denies chest pain, Denies syncope, Denies edema, Denies irregular heart rhythm, Reports lightheadedness and Denies dyspnea Resp Denies cough and Denies dyspnea GI Denies abdominal pain, Denies nausea and Denies vomiting Reports no additional complaints Musc Reports as per HPI, Denies abnormal gait and Reports back pain Skin/Breast Reports system reviewed and no additional complaints, except as documented Neuro Denies abnormal gait, Reports dizziness, Denies syncope and Denies headache(s) Psych Reports no additional complaints Physical exam (Primary Care) Vital Signs: Last Vital Signs Pulse 97 01/30/25 09:22 Resp 18 01/30/25 09:22 BP 122/60 01/30/25 09:22 Pulse Ox 96 01/30/25 09:22 Oxygen Delivery Method Room Air 01/30/25 09:22 BMI result Body Mass Index 32.3 Tobacco/Smoking Status: Tobacco use Status Tobacco use date assessed 01/30/25 01/30/25 09:30 Patient Tobacco Use Status Never used Tobacco 01/30/25 09:30 Tobacco use type Cigarette 12/05/25 09:30 e-Cigarette/Vaping Use Never Used 01/30/25 09:30 Thrive Assessment: Date of Thrive Assessment Date Thrive assessed 01/30/25 01/30/25 09:30 Currently or been in a relationship where the following occur: No concerns reported Const General: cooperative, healthy appearing, comfortable and no acute distress Orientation/consciousness: patient oriented x3 HENMT Head: Yes normocephalic Ears: hearing grossly normal bilaterally General nose exam: Normal external nose present Eyes General: appearance normal, both eyes and all related structures Conjunctivae: conjunctivae normal Neck Neck: Yes full ROM and Yes no lymphadenopathy Resp Effort & Inspection: normal respiratory effort Auscultation: clear to auscultation bilaterally, no crackles, no rales, no rhonchi and no wheezes Cardio Rate: regular rate Rhythm: regular rhythm Skin General skin exam: no rashes or lesions noted Neuro General: patient oriented x3 Gait exam (Neuro): Normal gait present Extrem General: Yes normal to inspection, Yes full ROM and No edema Psych Affect: normal affect Attitude: cooperative Insight: Good insight present (Psych) Judgement: Good judgement present (Psych) Coding Level of Care Code Est Pt Level 3 (91748) Diagnoses Hypertension I10 CAD (coronary artery disease) I25.10 Insulin dependent type 2 diabetes mellitus E11.9; Z79.4 Failed back surgical syndrome M96.1 Current moderate episode of major depressive disorder, unspecified whether recurrent F32.1 Active/Remission status: currently active Depression Type: major depressive disorder Major depression episode severity: moderate Major depression recurrence: unspecified whether recurrent Hypercholesterolemia E78.00 Memory impairment R41.3 Lightheaded R42 Assessment & Plan Assessment & Plan (1) Hypertension: Code(s): I10 - Essential (primary) hypertension Category: Medical Plan: Continue on current blood pressure medication. Avoid salt intake and encourage healthy diet and regular exercise. plan to decrease her atenolol to 100 mg from 150 mg as she is having some lightheadedness and blood pressure is on the lower end and has been for several visits. She agrees to monitor the blood pressure at home and reach out if blood pressure exceeds 140/90 and has strict instructions on when to reach out to the clinic. (2) CAD (coronary artery disease): Comment: PREMA to circumflex and has 50% lad 2012 Code(s): I25.10 - Atherosclerotic heart disease of [place] coronary artery without angina pectoris Category: Medical Plan: LDL goal less than 70, blood pressure goal less than 130/90 at goal today, A1c goal less than 8% and currently following with [facility] endocrinology. Asymptomatic at this time (3) Insulin dependent type 2 diabetes mellitus: Code(s): E11.9 - Type 2 diabetes mellitus without complications; Z79.4 - assisted (current) use of insulin Category: Medical Plan: Decrease the amount of carbohydrates such as pasta, bread, rice, and potatoes and limit the amount of sweets. Although fruits are generally healthy they should be eaten in moderation as they are still high in sugar. Hemoglobin A1c goal of less than 8%. She is currently following with [facility] endocrinology and is on Lantus, glipizide daily, Mounjaro. 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 She is declining any muscle relaxers or any medications that could potentially cause drowsiness. She is seeing pain management coming up. (5) Depression: Code(s): F32.A - Depression, unspecified Category: Medical Qualifiers: Active/Remission status: currently active Depression Type: major depressive disorder Major depression episode severity: moderate Major depression recurrence: unspecified whether recurrent Qualified Code(s): F32.1 - Major depressive disorder, single episode, moderate Plan: The patient reports seasonal depression. She will continue with her psychologist at [facility] and will follow up regarding her sertraline dosage, which is currently documented as 150 mg. (6) Hypercholesterolemia: Code(s): E78.00 - Pure hypercholesterolemia, unspecified Category: Medical Plan: Avoid foods that are high in cholesterol such as red meat, fried foods, eggs and baked goods. Triglyceride goal of less than 150 and LDL goal of less than 70. Continue on pravastatin last LDL within goal (7) Memory impairment: Code(s): R41.3 - Other amnesia Category: Medical Plan: For memory impairment and gait issues she did have a recent negative CAT scan of the head. We are currently awaiting Neurology appointment as she did miss her most recent appointment due to scheduling issues. She will reach out to the office to reschedule and I will send a message to their office as well. (8) Lightheaded: Code(s): R42 - Dizziness and giddiness Category: Medical Plan: The patient's dizziness and lightheadedness are suspected to be a side effect of atenolol, especially given her recent low blood pressure readings. The plan is to decrease her atenolol dose from 150 mg to 100 mg daily. She has been instructed to monitor her blood pressure at home for one week. If her blood pressure exceeds 140/90 mmHg, she should return to the 150 mg dose and notify the clinic. If dizziness persists or she has to resume the higher dose, a new appointment with neurology will be scheduled. Plan This note was constructed using voice recognition software. While every effort has been made to ensure accuracy and antique jewelry repairer, still areas may have been included sometimes these areas may affect the content or meeting of the given symptoms. Total time spent caring for the patient today was 20 minutes. This includes time spent before the visit reviewing the chart, time spent during the visit, and time spent after the visit and documentation. Patient was informed and verbally consented to the use of an ambient scribe for clinic note documentation during this visit.
== END 2025-01-30 10:10 | disposition home or self-care (01) ==
LOC: HO.HMCH 09:13
DX: E11.9 Type 2 diabetes mellitus without complications (principal); Z79.4 Long term (current) use of insulin; F32.1 Major depressive disorder, single episode, moderate; I10 Essential (primary) hypertension; I25.10 Atherosclerotic heart disease of native coronary artery without angina pectoris; M96.1 Postlaminectomy syndrome, not elsewhere classified; E78.00 Pure hypercholesterolemia, unspecified; R41.3 Other amnesia; R42 Dizziness and giddiness

== ENCOUNTER → 2025-01-30 09:12 | Outpatient (BNVA) | payer OTHER, SELFPAY | DX: I10 Essential (primary) hypertension (principal); I25.10 Atherosclerotic heart disease of native coronary artery without angina pectoris; E11.9 Type 2 diabetes mellitus without complications; M96.1 Postlaminectomy syndrome, not elsewhere classified; F32.1 Major depressive disorder, single episode, moderate; E78.00 Pure hypercholesterolemia, unspecified; R41.3 Other amnesia; R42 Dizziness and giddiness; Z79.4 Long term (current) use of insulin | CPT/HCPCS: 99212 ==